=== PATIENT | female | born 1935 | race American Indian/Alaskan Native ===

== ENCOUNTER 2017-01-01 15:08 | Inpatient (IN) | payer MEDICARE, OTHER ==
[2017-01-01] MEDS ORDERED: Dextrose 50% SYRINGE Inj (50 ml) ONE (15:24)
[2017-01-01 15:29] VITALS: BMI 29.2
[2017-01-01 15:59] LABS: BASO # 0.1 K/uL (0.0-0.2); BASO % 0.8 % (0.0-2.0); EOS # 0.1 K/uL (0.0-0.7); LYMPH # 1.2 K/uL (1.0-4.3); LYMPH % 16.5 % (20.0-40.0); MEAN CELL VOLUME 78.2 fL (81.0-99.0); MEAN CORPUSCULAR HGB CONC 30.7 g/dL (33.0-37.0); MEAN PLATELET VOLUME 9.8 fL (7.2-11.7); MONO # 0.6 K/uL (0.0-0.8); MONO % 8.5 % (0.0-10.0); NEUT # 5.2 K/uL (1.8-7.0); NEUT % 73.2 % (50.0-75.0); RBC 4.59 Mil/uL (3.80-5.20); RED CELL DISTRIBUTION WIDTH 18.3 % (11.5-14.5); WHITE BLOOD COUNT 7.1 K/uL (4.8-10.8)
--- NOTE | 2017-01-01 15:59 | CT ---
PROCEDURE: CT HEAD WITHOUT CONTRAST. HISTORY: r/o stroke COMPARISON: None available. TECHNIQUE: Axial computed tomography images were obtained through the head/brain without intravenous contrast. Radiation dose: Total exam DLP = 940.06 mGy-cm. This CT exam was performed using one or more of the following dose reduction techniques: Automated exposure control, adjustment of the mA and/or kV according to patient size, and/or use of iterative reconstruction technique. FINDINGS: HEMORRHAGE: No intracranial hemorrhage. BRAIN: Mild chronic periventricular white matter ischemic changes seen extending peripherally into the deep and subcortical white matter both cerebral hemispheres. In addition, there are a few scattered chronic bilateral basal nuclei lacunar type infarcts. VENTRICLES: No evidence of obstructive hydrocephalus CALVARIUM: No acute calvarial fractures. PARANASAL SINUSES: There are extensive postoperative changes with resection of the middle turbinates as well as the medial lund both maxillary antra and multiple inferior ethmoid septations. Mild to moderate mucosal thickening left maxillary antrum with minor mucosal thickening right maxillary antrum. . Subtotal opacification residual superior ethmoid air cells extending into the frontal sinus. There is also mild mucosal thickening in the left chamber sphenoid sinus with wall thickening of the peripheral lund of the left chamber including the midline intrasphenoid septum MASTOID AIR CELLS: There appears to be some minor mucosal thickening and/or fluid within a few right inferior mastoid air cells. OTHER FINDINGS: None IMPRESSION: No acute intracranial hemorrhage. Mild chronic white matter ischemic changes with a few scattered chronic bilateral basal nuclei lacunar type infarcts. Moderate generalized volume loss. Postoperative changes involving nasal cavity and paranasal sinuses as above. Findings discussed with Dr. Castro at approximately 01/01/2017 at 3:57 p.m. with written down and read back verification.
[2017-01-01 16:04] LABS: PROTHROMBIN TIME 11.5 SECONDS (9.7-12.2)
[2017-01-01 16:06] LABS: ALBUMIN 3.5 g/dL (3.5-5.0)
[2017-01-01 16:09] LABS: ALB/GLOB RATIO 0.6 (1.0-2.1)
[2017-01-01 16:10] LABS: CALCIUM 8.6 mg/dl (8.6-10.4)
--- NOTE | 2017-01-01 16:13 | C.PDOC ---
History Of Present Illness Patient BIB[place] from [place] for evaluation of AMS. As per EMS & [facility] records, patient was c/o abdominal pain in the morning, then noted to have left sided facial droop and LUE weakness at approx 1:45pm. Currently states she "sometimes" has LUE weakness. Accucheck <64 on ED arrival. Time Seen by Provider: 01/01/17 16:00 Chief Complaint (Nursing): Weakness/Neurological Deficit History Per: EMS, Other ([facility] records) History/Exam Limitations: other (AMS) Onset/Duration Of Symptoms: Other (1:45pm) Current Symptoms Are (Timing): Better Past Medical History Reviewed: Historical Data, Nursing Documentation, Vital Signs Vital Signs: Last Vital Signs Temp 97.9 F 01/07/17 15:00 Pulse 72 01/07/17 15:00 Resp 20 01/07/17 15:00 BP 130/74 01/07/17 15:00 Pulse Ox 96 01/07/17 15:00 - Medical History PMH: Dementia, HTN Surgical History: Coronary Stent Family History: States: Other Other Family History: noncontributory - Social History Hx Alcohol Use: No Hx Substance Use: No Review Of Systems Except As Marked, All Systems Reviewed And Found Negative. Constitutional: Negative for: Fever, Chills Cardiovascular: Negative for: Chest Pain, Palpitations Respiratory: Negative for: Cough, Shortness of Breath Gastrointestinal: Negative for: Nausea, Vomiting, Abdominal Pain, Diarrhea Neurological: Positive for: Weakness, Altered Mental Status. Negative for: Headache, Dizziness Physical Exam - Physical Exam Appears: Well, Non-toxic, No Acute Distress Skin: Normal Color, Warm, Dry, No Rash Head: Atraumatic, Normacephalic Eye(s): bilateral: Normal Inspection, PERRL, EOMI Oral Mucosa: Moist Cardiovascular: Rhythm Regular Respiratory: Normal Breath Sounds, No Rales, No Rhonchi, No Wheezing Gastrointestinal/Abdominal: Normal Exam, Bowel Sounds, Soft, No Tenderness Extremity: No Tenderness, Pedal Edema (+1 pitting B/L LEs), No Calf Tenderness Pulses: Left Dorsalis Pedis: Normal, Right Dorsalis Pedis: Normal Neurological/Psych: Other (awake, alert, confused) ED Course And Treatment - Laboratory Results Result Diagrams: 01/01/17 15:52 01/03/17 07:24 ECG: Interpreted By Me, Viewed By Me (Sinus rhythm 89 bpm, normal axis, T wave II, III, aVF, V3-V6, no acute ST changes) ECG Interpretation: Abnormal O2 Sat by Pulse Oximetry: 98 (RA) Pulse Ox Interpretation: Normal - CT Scan/US CT HEAD Other Rad Studies (CT/US): Read By Radiologist, Radiology Report Reviewed CT/US Interpretation: Accession No. : [id number]. Patient Name / ID : LELE DOSS C / [id number]. Exam Date : 01/01/2017 15:33:17 ( Approved ). Study Comment : Sex / Age : F / 81Y. Creator : Jovani Mcrae MD. Dictator : Jovani Mcrae MD. Automotive Metalsmith : Java Designer : Jovani Mcrae MD. Approver2 : Report Date : 01/01/2017 15:58:20. My Comment : . PROCEDURE: CT HEAD WITHOUT CONTRAST. HISTORY: r/o stroke. COMPARISON: None available. TECHNIQUE: Axial computed tomography images were obtained through the head/brain without intravenous contrast. Radiation dose: Total exam DLP = 940.06 mGy-cm. This CT exam was performed using one or more of the following dose reduction techniques: Automated exposure control, adjustment of the mA and/ or kV according to patient size, and/or use of iterative reconstruction technique. FINDINGS: HEMORRHAGE: No intracranial hemorrhage. BRAIN: Mild chronic periventricular white matter ischemic changes seen extending peripherally into the deep and subcortical white matter both cerebral hemispheres. In addition, there are a few scattered chronic bilateral basal nuclei lacunar type infarcts. VENTRICLES: No evidence of obstructive hydrocephalus. CALVARIUM: No acute calvarial fractures. PARANASAL SINUSES: There are extensive postoperative changes with resection of the middle turbinates as well as the medial lund both maxillary antra and multiple inferior ethmoid septations. Mild to moderate mucosal thickening left maxillary antrum with minor mucosal thickening right maxillary antrum. . Subtotal opacification residual superior ethmoid air cells extending into the frontal sinus. There is also mild mucosal thickening in the left chamber sphenoid sinus with wall thickening of the peripheral lund of the left chamber including the midline intrasphenoid septum. MASTOID AIR CELLS: There appears to be some minor mucosal thickening and/or fluid within a few right inferior mastoid air cells. OTHER FINDINGS: None. IMPRESSION: No acute intracranial hemorrhage. Mild chronic white matter ischemic changes with a few scattered chronic bilateral basal nuclei lacunar type infarcts. Moderate generalized volume loss. Postoperative changes involving nasal cavity and paranasal sinuses as above. Findings discussed with Dr. Castro at approximately 2016 at 3:57 p.m. with written down and read back verification. Progress Note: Code stroke called due to stated complaints, however patient without obvious left sided facial droop or LUE weakness on physical exam. PO ASA given after CT head (-) for bleed. Reevaluation Time: 17:00 Reassessment Condition: Improved (Patient resting comfortably, in no pain/ distress. No current facial droop or left sided weakness noted.) - Physician Consult Information Physician Contacted: Ubaldo Cooper Outcome Of Conversation: Discussed patient with Dr. Cooper, agrees with admission for TIA, hypoglycemia. Would like Dr. Manuel for neurology, consult entered. NIHSS Stroke Scale - Date/Time Evaluation Performed Date Performed: 01/01/17 Time Performed: 16:00 When Was NIHSS Performed: Baseline - How Severe is the Stoke Level of Consciousness: 0=Alert LOC to Questions: 0=Both comments correct LOC to commands: 0=Obeys both correctly Best Gaze: 0=Normal Visual: 0=No visual loss Facial: 0=Normal Motor Arm - Left: 0=No drift Motor Arm - Right: 0=No drift Motor Leg - Left: 0=No drift Motor Leg - Right: 0=No drift Limb Ataxia: 0=Absent Sensory: 0=Normal Best Language: 0=No aphasia Dysarthia: 0=Normal articulation Extinction & Inattention (Neglect): 0=Normal, no object Score: 0 Severity Of Stroke: 0= No Stroke rTPA Inclusion/Exclusion - Refusal of Treatment Patient Refused Treatment: No - Inclusion Criteria for Altepase Patient is 18 years or Older: Yes The Clinical Diagnosis of Ischemic Stroke That is Causing a Potentially Disabling Neurological Deficit: No Time of Onset is Well Established to be Less Than 270 Minute Before Treatment Would Begin: Yes Risk/Benefit Discussed With Patient/Family Member Present: No Disposition - Disposition Disposition: HOSPITALIZED Disposition Time: 17:08 Condition: STABLE - Clinical Impression Clinical Impression: Facial droop, Hypoglycemia, Weakness of limb, TIA (transient ischemic attack) Decision To Admit - Pt Status Changed To: Hospital Disposition Of: Inpatient - Admit Certification Admit to Inpatient:: After my assessment, the patient will require hospitalization for at least two midnights. This is because of the severity of symptoms shown, intensity of services needed, and/or the medical risk in this patient being treated as an outpatient. - InPatient: Physician Admission Certification: I certify that this patient requires 2 or more midnights of care for the following reason:: see notes - . Bed Request Type: Telemetry Admitting Physician: Ubaldo Cooper Patient Diagnosis: TIA (transient ischemic attack), Weakness of limb, Facial droop, Hypoglycemia
[2017-01-01] MEDS ORDERED: Dextrose 50% SYRINGE Inj (50 ml) IVP STA (16:17)
[2017-01-01 16:25] LABS: TROPONIN I 0.059 ng/mL (0.00-0.120)
--- NOTE | 2017-01-01 17:01 | RAD ---
HISTORY: CODE STROKE COMPARISON: No prior. FINDINGS: LUNGS: Mild venous congestion. Bilateral hilar prominence. Patchy increased markings at the left lung base. PLEURA: No significant pleural effusion identified, no pneumothorax apparent. CARDIOVASCULAR: Tortuous aorta. OSSEOUS STRUCTURES: No significant abnormalities. VISUALIZED UPPER ABDOMEN: Normal. OTHER FINDINGS: None. IMPRESSION: Mild venous congestion. Bilateral hilar prominence. Patchy increased markings at the left lung base.
--- NOTE | 2017-01-01 19:56 | MRI ---
PROCEDURE: MRI of the brain dated 01/01/2017 HISTORY: FACIAL DROP, LUE WEAKNESS, R/O CVA/TIA COMPARISON: Comparison made with prior CT scan obtained earlier same day TECHNIQUE: Multiplanar, multisequence MR images of the brain were obtained without intravenous contrast enhancement. FINDINGS: HEMORRHAGE: No acute intracranial hemorrhage. No evidence of hemosiderin deposition identified on gradient echo weighted sequence DWI: No evidence of an acute or early subacute infarction seen on diffusion weighted imaging. . BRAIN PARENCHYMA: Seen to better advantage are mild chronic periventricular white matter ischemic changes which extend peripherally into the deep and subcortical white matter both cerebral hemispheres. Multiple more discrete chronic appearing lacunar type infarcts scattered about the deep and subcortical white matter, grant radiata and brainstem. There may also be a few scattered chronic lacunar-type infarcts within both basal nuclei. None of the changes exhibit restricted diffusion. Moderate generalized volume loss. VENTRICLES: No evidence of obstructive hydrocephalus CRANIUM: Unremarkable. ORBITS: Changes of right-sided cataract surgery PARANASAL SINUSES/MASTOIDS: Extensive postoperative changes involving nasal cavity and medial lund both maxillary antra as well as multiple ethmoid septations. . Varying degrees of mild mucosal thickening throughout the paranasal sinuses have been described in further detail prior CT scan of the brain and corresponding report. Please refer that exam for additional details. VASCULAR SYSTEM: The visualized major vascular flow voids at skull base are patent. . OTHER FINDINGS: None. IMPRESSION: No acute intracranial hemorrhage or infarct. Chronic white matter basal nuclei and brainstem ischemic changes. Moderate generalized volume loss.
[2017-01-01] MEDS ORDERED: Magnesium Hydroxide Susp 30 ml UD PO PRN (20:37)
[2017-01-01] MEDS: (Novolog) Insulin Aspart, Recombinant 100 u/ml 10 ml vial SC SCH (21:26)
[2017-01-02 00:21] LABS: FREE T4 1.22 ng/dL (0.78-2.19)
[2017-01-02] MEDS: (Novolog) Insulin Aspart, Recombinant 100 u/ml 10 ml vial SC SCH ×4 (07:50→22:03)
[2017-01-02] MEDS ORDERED: Enoxaparin 40 mg Syringe SC SCH (10:00)
[2017-01-02] MEDS: Metoprolol Succinate 100 mg XL Tab PO SCH (10:54)
[2017-01-02] MEDS: Enoxaparin 30 mg Syringe SC SCH (10:55)
[2017-01-02 17:12] LABS: RAPID PLASMA REAGIN REACTIVE (NONREACTIVE); RPR TITER 1:32 (NONREACTIVE)
--- NOTE | 2017-01-02 18:40 | CP.PCM.CON ---
History of Present Illness - History of Present Illness History of Present Illness: LEFT HAND WEAKNESS FOR 3 MONTHS AND DROPPING OBJECTS DENIES ANY OTHER COMPLAINTS EXCEPT ACHS AND PAIN. Past Patient History - Past Social History Smoking Status: Never Smoked - CARDIAC Hx Hypertension: Yes - NEUROLOGICAL Hx Dementia: Yes - HEENT Hx Cataracts: Yes (right surgery 3yrs ago) - RENAL Hx Chronic Kidney Disease: No - ENDOCRINE/METABOLIC Hx Diabetes Mellitus Type 2: Yes - HEMATOLOGICAL/ONCOLOGICAL Hx Blood Disorders: No - INTEGUMENTARY Hx Dermatological Problems: No - MUSCULOSKELETAL/RHEUMATOLOGICAL Hx Falls: No - GASTROINTESTINAL Hx Gastrointestinal Disorders: No - GENITOURINARY/GYNECOLOGICAL Hx Incontinence: Yes - PSYCHIATRIC Hx Substance Use: No - SURGICAL HISTORY Hx Coronary Stent: Yes (2006) - ANESTHESIA Hx Anesthesia: Yes Hx Anesthesia Reactions: No Hx Malignant Hyperthermia: No Has any member of the family had a problem w/ anesthesia?: No Meds Allergies/Adverse Reactions: Allergies Allergy/AdvReac Type Severity Reaction Status Date / Time shrimp Allergy ITCHING Verified 01/01/17 16:04 - Medications Medications: Current Medications Acetaminophen (Tylenol 325mg Tab) 325 mg PO Q4 PRN PRN Reason: Fever >100.4 F Aspirin (Aspirin Chewable) 81 mg PO DAILY [facility] Last Admin: 01/02/17 10:54 Dose: 81 mg Enalapril Maleate (Vasotec) 10 mg PO DAILY [facility] Last Admin: 01/02/17 10:54 Dose: 10 mg Enoxaparin Sodium (Lovenox) 30 mg SC DAILY [facility] Last Admin: 01/02/17 10:55 Dose: 30 mg Furosemide (Lasix) 40 mg PO DAILY [facility] Last Admin: 01/02/17 10:54 Dose: 40 mg Gabapentin (Neurontin) 300 mg PO DAILY [facility] Last Admin: 01/02/17 10:54 Dose: 300 mg Hydralazine HCl (Apresoline) 25 mg PO Q8 [facility] Last Admin: 01/02/17 13:38 Dose: 25 mg Insulin Aspart (Novolog) 0 unit SC ACHS [facility] PRN Reason: Protocol Last Admin: 01/02/17 16:41 Dose: Not Given Magnesium Hydroxide (Milk Of Magnesia) 30 ml PO HS PRN PRN Reason: Constipation Memantine (Namenda) 5 mg PO BID [facility] Last Admin: 01/02/17 17:04 Dose: 5 mg Metoprolol Succinate (Toprol Xl) 100 mg PO DAILY [facility] Last Admin: 01/02/17 10:54 Dose: 100 mg Pneumococcal Polyvalent Vaccine (Pneumovax 23 Vaccine) 0.5 ml IM .ONCE ONE Stop: 01/03/17 10:01 Rosuvastatin Calcium (Crestor) 10 mg PO [facility] Sitagliptin Phosphate (Januvia) 25 mg PO DAILY [facility] Last Admin: 01/02/17 10:54 Dose: 25 mg Physical Exam - Head Exam Head Exam: NORMAL INSPECTION - Eye Exam Eye Exam: EOMI - Respiratory Exam Respiratory Exam: NORMAL BREATHING PATTERN - Cardiovascular Exam Cardiovascular Exam: REGULAR RHYTHM - Expanded Neurological Exam Expanded Patient oriented to: person, place, time Cranial nerves: EOM's Intact: Normal, Facial Palsey w/Forehead Movement: Abnormal Left, Facial Palsey w/o Forehead Movement: Normal, Facial Sensation: Normal, Gag Reflex: Normal, Nystagmus: Normal, Tongue Deviation: Normal Cerebellar Function: Finger to Nose: Normal Upper motor neuron: Babinski Sign: Abnormal Left Sensory exam: Lower Extremity Pin Prick: Abnormal Left, Abnormal Right ( NEUROPATHY) Neuro motor strength exam: Left Upper Extremity: 4, Right Upper Extremity: 5, Left Lower Extremity: 4, Right Lower Extremity: 5 DTR: Achilles Tendon Left: 0, Achilles Tendon Right: 0, Bicep Left: 2+, Bicep Right: 0, Brachioradialis Left: 2+, Brachioradialis Right: 2+, Patellar Left: 0 , Patellar Right: 0, Tricep Left: 0, Tricep Right: 0 Results - Vital Signs Recent Vital Signs: Last Vital Signs Temp 98.5 F 01/02/17 08:39 Pulse 103 H 01/02/17 08:39 Resp 20 01/02/17 08:39 BP 138/81 01/02/17 10:54 Pulse Ox 96 01/02/17 08:39 - Labs Result Diagrams: 01/01/17 15:52 01/01/17 15:52 Labs: Laboratory Results - last 24 hr 01/01/17 01/01/17 01/01/17 21:22 23:03 23:03 POC Glucose (mg/dL) 124 H Vitamin B12 571 Folate 7.0 Free T4 1.22 TSH 3rd Generation 0.92 Prolactin 14.0 RPR Titer RPR 01/01/17 01/02/17 01/02/17 23:03 11:32 16:08 POC Glucose (mg/dL) 168 H 146 H Vitamin B12 Folate Free T4 TSH 3rd Generation Prolactin RPR Titer 1:32 H RPR Reactive H Assessment & Plan (1) Brain stem stroke syndrome Assessment and Plan: MRI SHOWED SMALL VESSEL DISEASE CAROTID NO SIG STENOSIS CONTINUE THE PRESENT MANAGEMENT PT / OOB DVT PROPHYLAXIS Status: Acute Priority: Medium - Date & Time Date: 01/02/17 Time: 06:45
--- NOTE | 2017-01-02 22:47 | CP.PCM.HP ---
History of Present Illness - History of Present Illness History of Present Illness: CC: LEFT HAND WEAKNESS & NUMBNESS FOR 3 MONTHS AND DROPPING OBJECTS DENIES ANY OTHER COMPLAINTS EXCEPT ACHS AND PAIN HPI: ELDERLY AA FEMALE WITH H/O TYPE 2 DM, HTN, HYPERLIPIDEMIA, ALZEHMEIRS WHO LIVES IN A [facility], HAD ACUTE ONSET OF LEFT SIDED UE AND FACIAL NUMBNESS AND WEAKNESS THAT LASTED FOR FEW MINUTES BY THE TIME PT REACHED ER IT RESOLVED . Present on Admission - Present on Admission Any Indicators Present on Admission: Yes Past Patient History - Past Social History Smoking Status: Never Smoked - CARDIAC Hx Hypertension: Yes - NEUROLOGICAL Hx Dementia: Yes - HEENT Hx Cataracts: Yes (right surgery 3yrs ago) - RENAL Hx Chronic Kidney Disease: No - ENDOCRINE/METABOLIC Hx Diabetes Mellitus Type 2: Yes - HEMATOLOGICAL/ONCOLOGICAL Hx Blood Disorders: No - INTEGUMENTARY Hx Dermatological Problems: No - MUSCULOSKELETAL/RHEUMATOLOGICAL Hx Falls: No - GASTROINTESTINAL Hx Gastrointestinal Disorders: No - GENITOURINARY/GYNECOLOGICAL Hx Incontinence: Yes - PSYCHIATRIC Hx Substance Use: No - SURGICAL HISTORY Hx Coronary Stent: Yes (2006) - ANESTHESIA Hx Anesthesia: Yes Hx Anesthesia Reactions: No Hx Malignant Hyperthermia: No Has any member of the family had a problem w/ anesthesia?: No Meds Allergies/Adverse Reactions: Allergies Allergy/AdvReac Type Severity Reaction Status Date / Time shrimp Allergy ITCHING Verified 01/01/17 16:04 Physical Exam - Constitutional Appears: No Acute Distress, Confused, Chronically Ill - Eye Exam Eye Exam: EOMI, Normal appearance, PERRL Pupil Exam: NORMAL ACCOMODATION, PERRL - Respiratory Exam Respiratory Exam: Clear to Auscultation Bilateral, NORMAL BREATHING PATTERN - Cardiovascular Exam Cardiovascular Exam: REGULAR RHYTHM Additional comments: 3/6 [facility] - Extremities Exam Extremities exam: Positive for: normal inspection Additional comments: DTRS ABSENT IN BOTH ANKLES ALL OTHER REFLEXES NORMAL - Back Exam Back exam: NORMAL INSPECTION - Neurological Exam Additional comments: AAOX2 - Psychiatric Exam Psychiatric exam: Normal Affect, Normal Mood Results - Vital Signs Recent Vital Signs: Last Vital Signs Temp 98.4 F 01/02/17 16:00 Pulse 95 H 01/02/17 18:44 Resp 22 01/02/17 16:00 BP 166/96 H 01/02/17 16:00 Pulse Ox 98 01/02/17 16:00 - Labs Result Diagrams: 01/01/17 15:52 01/03/17 07:24 Labs: Laboratory Results - last 24 hr 01/01/17 01/01/17 01/01/17 23:03 23:03 23:03 POC Glucose (mg/dL) Vitamin B12 571 Folate 7.0 Free T4 1.22 TSH 3rd Generation 0.92 Prolactin 14.0 RPR Titer 1:32 H RPR Reactive H 01/02/17 01/02/17 01/02/17 11:32 16:08 21:30 POC Glucose (mg/dL) 168 H 146 H 184 H Vitamin B12 Folate Free T4 TSH 3rd Generation Prolactin RPR Titer RPR Assessment & Plan (1) TIA (transient ischemic attack) Status: Acute (2) LUE numbness Status: Acute (3) HTN (hypertension) Status: Acute (4) AD (Alzheimer's disease) Status: Acute
[2017-01-03] MEDS: (Novolog) Insulin Aspart, Recombinant 100 u/ml 10 ml vial SC SCH ×4 (07:52→20:59)
[2017-01-03 08:06] LABS: CALCIUM 8.9 mg/dl (8.6-10.4)
[2017-01-03] MEDS ORDERED: Pneumococcal 23-Valent Vaccine IM ONE (10:00)
[2017-01-03] MEDS: Enoxaparin 30 mg Syringe SC SCH (10:26)
[2017-01-03] MEDS: Metoprolol Succinate 100 mg XL Tab PO SCH (10:27)
--- NOTE | 2017-01-03 10:27 | VASCLAB ---
PROCEDURE: HISTORY: Cerebrovascular accident COMPARISON: None available. TECHNIQUE: Grayscale and duplex Doppler evaluation of the cervical carotid and vertebral arteries were performed. The common carotid, carotid bifurcations and cervical Internal Carotid Artery (ICA) and proximal External Carotid Artery (ECA) were evaluated. The vertebral arteries were evaluated for gross patency and flow direction. Report prepared by THOMAS Syed FINDINGS: RIGHT CAROTID ARTERIES: 1. Common Carotid Artery: No significant focal plaque formation of the right common carotid artery. Maximum Peak Systolic velocity: 70 cm/sec: End-diastolic velocity 10 cm/sec. 2. Carotid Bifurcation: Minimal calcifiic plaque formation. Maximum Peak Systolic velocity: 51 cm/sec: End-diastolic velocity 8 cm/sec. 3. Internal Carotid Artery: Plaque description: 3.1. Proximal Segment: Peak systolic velocity 74 cm/sec: End-diastolic velocity 20 cm/sec - % stenosis 0-15% 3.2. Middle Segment: Peak systolic velocity 85 cm/sec: End-diastolic velocity 18 cm/sec - % stenosis 0-15% 3.3. Distal Segment: Peak systolic velocity 89 cm/sec: End-diastolic velocity 34 cm/sec - % stenosis 0-15% 4. External Carotid Artery: No significant focal plaque formation. Peak systolic velocity 64 cm/sec 5. ICA/CCA Ratio: 1.6 LEFT CAROTID ARTERIES: 1. Common Carotid Artery: No significant focal plaque formation of the left common carotid artery. Maximum Peak Systolic velocity: 81 cm/sec: End-diastolic velocity 12 cm/sec. 2. Carotid Bifurcation: Minimal calcific plaque formation. Maximum Peak Systolic velocity: 39 cm/sec: End-diastolic velocity 0 cm/sec. 3. Internal Carotid Artery: Plaque description: 3.1. Proximal Segment: Peak systolic velocity 40 cm/sec: End-diastolic velocity 11 cm/sec - % stenosis 0-15% 3.2. Middle Segment: Peak systolic velocity 78 cm/sec: End-diastolic velocity 26 cm/sec - % stenosis 0-15% 3.3. Distal Segment: Peak systolic velocity 59 cm/sec: End-diastolic velocity 15 cm/sec - % stenosis 0-15% 4. External Carotid Artery: No significant focal plaque formation. Peak systolic velocity 72 cm/sec 5. ICA/CCA Ratio: 1.6 VERTEBRAL ARTERIES: 1. Right Vertebral Artery: The right vertebral artery flow direction is antegrade. 2. Left Vertebral Artery: The left vertebral artery flow direction is antegrade. OTHER FINDINGS: 1. Right Brachial Blood pressure: 160 mmHg. 2. Left Brachial Blood pressure: 150 mmHg. IMPRESSION: RIGHT: Duplex scan does not suggest hemodynamically significant stenosis of the right extracranial carotid arteries. LEFT: Duplex scan does not suggest hemodynamically significant stenosis of the left extracranial carotid arteries. Technically difficult scanning, due to patient breathing movement and short neck area.
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
--- NOTE | 2017-01-03 16:18 | CARD ---
APPROVED REPORT EKG Measurement Heart [id number] <Conclusion> Sinus rhythm with marked sinus arrhythmia Nonspecific ST/T abnormality Abnormal ECG
--- NOTE | 2017-01-03 16:54 | CP.PCM.PN ---
Subjective - Date & Time of Evaluation Date of Evaluation: 01/02/17 Time of Evaluation: 21:00 - Subjective Subjective: Pt seen & examined, she has elevated BUN?creat that is chronic, stroke is ruled out, could be TIA or vasovagal syncope Objective - Vital Signs/Intake and Output Vital Signs (last 24 hours): Temp Pulse Resp BP Pulse Ox 97.8 F 99 H 20 157/84 H 99 01/03/17 08:37 01/03/17 16:12 01/03/17 08:37 01/03/17 10:25 01/03/17 08:37 - Medications Medications: Current Medications Acetaminophen (Tylenol 325mg Tab) 325 mg PO Q4 PRN PRN Reason: Fever >100.4 F Last Admin: 01/03/17 05:46 Dose: 325 mg Aspirin (Aspirin Chewable) 81 mg PO DAILY [facility] Last Admin: 01/03/17 10:27 Dose: 81 mg Enalapril Maleate (Vasotec) 10 mg PO DAILY [facility] Last Admin: 01/03/17 10:25 Dose: 10 mg Enoxaparin Sodium (Lovenox) 30 mg SC DAILY [facility] Last Admin: 01/03/17 10:26 Dose: 30 mg Furosemide (Lasix) 40 mg PO DAILY [facility] Last Admin: 01/03/17 10:25 Dose: 40 mg Gabapentin (Neurontin) 300 mg PO DAILY [facility] Last Admin: 01/03/17 10:25 Dose: 300 mg Hydralazine HCl (Apresoline) 25 mg PO Q8 [facility] Last Admin: 01/03/17 13:22 Dose: 25 mg Insulin Aspart (Novolog) 0 unit SC ACHS [facility] 234 [facility] PRN Reason: Protocol Last Admin: 01/03/17 12:17 Dose: 4 unit Magnesium Hydroxide (Milk Of Magnesia) 30 ml PO HS PRN PRN Reason: Constipation Memantine (Namenda) 5 mg PO BID [facility] Last Admin: 01/03/17 10:25 Dose: 5 mg Metoprolol Succinate (Toprol Xl) 100 mg PO DAILY [facility] Last Admin: 01/03/17 10:27 Dose: 100 mg Rosuvastatin Calcium (Crestor) 10 mg PO HS [facility] 234 [facility] Last Admin: 01/02/17 21:13 Dose: 10 mg Sitagliptin Phosphate (Januvia) 25 mg PO DAILY [facility] 234 [facility] Last Admin: 07/13/17 10:25 Dose: 25 mg - Labs Labs: 01/03/17 07:24 PT 11.5 SECONDS (9.7-12.2) 01/01/17 15:52 INR 1.0 01/01/17 15:52 APTT 41 SECONDS (21-34) H 01/01/17 15:52
[2017-01-03] MEDS: cefTRIAXone 2 GM IN NS 2 GM/100 ML BAG IVPB SCH (19:10)
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
[2017-01-04] MEDS: (Novolog) Insulin Aspart, Recombinant 100 u/ml 10 ml vial SC SCH ×4 (08:53→21:05)
[2017-01-04] MEDS: Enoxaparin 30 mg Syringe SC SCH (10:50)
[2017-01-04] MEDS: Metoprolol Succinate 100 mg XL Tab PO SCH (10:51)
--- NOTE | 2017-01-04 14:03 | CARD ---
APPROVED REPORT EXAM: Two-dimensional and M-mode echocardiogram with Doppler and color Doppler. Other Information Quality : GoodRhythm : NSR INDICATION CVA/TIA Murmur RISK FACTORS Hypertension 2D DIMENSIONS LVOT Diameter1.9 (1.8-2.4cm) M-Mode DIMENSIONS RVDd1.43 (2.1-3.2cm)Left Atrium (MM)4.52 (2.5-4.0cm) IVSd1.43 (0.7-1.1cm)Aortic Root2.47 (2.2-3.7cm) LVDd3.94 (4.0-5.6cm)Aortic Cusp Exc.0.91 (1.5-2.0cm) PWd1.46 (0.7-1.1cm)FS (%) 36 % LVDs2.51 (2.0-3.8cm)LVEF (%)67 (>50%) Aortic Valve AoV Peak Lgodeyaz630.4cm/sAoV VTI81.8cmAO Peak GR.60mmHg LVOT Peak Rfsrbkhc63.6cm/sLVOT VTI22.95cmAO Mean GR.39mmHg RUPESH (VMAX)0.58tm5SYV (VTI)0.76cm2 Mitral Valve MV E Nkjxaywi850.1cm/sMV E Peak Gr.25mmHgMV E Mean Gr.11mmHg E/A ratio0.0 TDI E/Lateral E'0.0E/Medial E'0.0 LEFT VENTRICLE The left ventricle is normal size. There is moderate concentric left ventricular hypertrophy. The left ventricular function is normal. The left ventricular ejection fraction is within the normal range. No regional wall motion abnormalities noted. No left ventricle thrombus noted on this study. There is no ventricular septal defect visualized. There is no left ventricular aneurysm. There is no mass noted in the left ventricle. RIGHT VENTRICLE The right ventricle is normal size. There is normal right ventricular wall thickness. The right ventricular systolic function is normal. ATRIA The left atrium is mildly dilated. The right atrium size is normal. The interatrial septum is intact with no evidence for an atrial septal defect. AORTIC VALVE The aortic valve is moderately thickened. No aortic regurgitation is present. There is moderate to severe valvular aortic stenosis. Calculated aortic valve area is 0.76 cm2 with maximum pressure gradient of 69 mmHg and mean pressure gradient of 39 mmHg. There is no aortic valvular vegetation. MITRAL VALVE The mitral valve is normal in structure and function. Mitral annular calcification is moderate. There is no evidence of mitral valve prolapse. There is no mitral valve stenosis. There is no mitral valve regurgitation noted. TRICUSPID VALVE The tricuspid valve is normal in structure and function. There is no tricuspid valve regurgitation noted. There is no tricuspid valve prolapse or vegetation. There is no tricuspid valve stenosis. PULMONIC VALVE The pulmonary valve is normal in structure and function. There is no pulmonic valvular regurgitation. There is no pulmonic valvular stenosis. GREAT VESSELS The aortic root is normal in size. The ascending aorta is normal in size. The pulmonary artery is normal. The IVC is normal in size and collapses >50% with inspiration. PERICARDIAL EFFUSION The pericardium appears normal. There is no pleural effusion. <Conclusion> There is moderate concentric left ventricular hypertrophy. The left ventricular function is normal. The left ventricular ejection fraction is within the normal range. The left atrium is mildly dilated. There is moderate to severe valvular aortic stenosis. Calculated aortic valve area is 0.76 cm2 with maximum pressure gradient of 69 mmHg and mean pressure gradient of 39 mmHg.
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
[2017-01-04] MEDS: cefTRIAXone 2 GM IN NS 2 GM/100 ML BAG IVPB SCH (19:01)
--- NOTE | 2017-01-04 23:08 | CP.PCM.PN ---
Subjective - Date & Time of Evaluation Date of Evaluation: 01/04/17 Time of Evaluation: 20:20 - Subjective Subjective: Pt seen and examined, RPR positive so pt is also seen by neurology to rule out neurosyphillis, clinincally remians unchanged Objective - Vital Signs/Intake and Output Vital Signs (last 24 hours): Temp Pulse Resp BP Pulse Ox 98.3 F 99 H 20 133/72 95 01/04/17 15:11 01/04/17 15:15 01/04/17 15:11 01/04/17 15:11 01/04/17 15:11 - Medications Medications: Current Medications Acetaminophen (Tylenol 325mg Tab) 325 mg PO Q4 PRN PRN Reason: Fever >100.4 F Last Admin: 01/03/17 05:46 Dose: 325 mg Aspirin (Aspirin Chewable) 81 mg PO DAILY [facility] Last Admin: 01/04/17 10:50 Dose: 81 mg Enalapril Maleate (Vasotec) 20 mg PO DAILY [facility] Enoxaparin Sodium (Lovenox) 30 mg SC DAILY [facility] Last Admin: 01/04/17 10:50 Dose: 30 mg Furosemide (Lasix) 40 mg PO DAILY [facility] Last Admin: 01/04/17 10:52 Dose: 40 mg Gabapentin (Neurontin) 300 mg PO DAILY [facility] Last Admin: 01/04/17 10:52 Dose: 300 mg Hydralazine HCl (Apresoline) 25 mg PO Q8 [facility] Last Admin: 01/04/17 21:22 Dose: 25 mg Ceftriaxone Sodium (Rocephin 2 Gm Ivpb) 2 gm in 100 mls @ 100 mls/hr IVPB Q24H [facility] Last Admin: 01/04/17 19:01 Dose: 100 mls/hr Insulin Aspart (Novolog) 0 unit SC ACHS [facility] PRN Reason: Protocol Last Admin: 01/04/17 21:05 Dose: Not Given Magnesium Hydroxide (Milk Of Magnesia) 30 ml PO HS PRN PRN Reason: Constipation Memantine (Namenda) 5 mg PO BID [facility] Last Admin: 01/04/17 17:38 Dose: 5 mg Metoprolol Succinate (Toprol Xl) 100 mg PO DAILY [facility] Last Admin: 01/04/17 10:51 Dose: 100 mg Rosuvastatin Calcium (Crestor) 10 mg PO HS [facility] Last Admin: 01/04/17 21:22 Dose: 10 mg Sitagliptin Phosphate (Januvia) 25 mg PO DAILY [facility] Last Admin: 01/04/17 10:52 Dose: 25 mg - Labs Labs: 01/03/17 07:24 PT 11.5 SECONDS (9.7-12.2) 01/01/17 15:52 INR 1.0 01/01/17 15:52 APTT 41 SECONDS (21-34) H 01/01/17 15:52 - Constitutional Appears: Well - Head Exam Head Exam: ATRAUMATIC, NORMAL INSPECTION, NORMOCEPHALIC - Eye Exam Eye Exam: EOMI, Normal appearance, PERRL Pupil Exam: NORMAL ACCOMODATION, PERRL - Respiratory Exam Respiratory Exam: Clear to Ausculation Bilateral, NORMAL BREATHING PATTERN - Cardiovascular Exam Cardiovascular Exam: REGULAR RHYTHM, +S1, +S2. absent: Murmur - GI/Abdominal Exam GI & Abdominal Exam: Soft, Normal Bowel Sounds. absent: Tenderness Assessment and Plan (1) TIA (transient ischemic attack) Status: Acute (2) LUE numbness Status: Acute (3) HTN (hypertension) Status: Acute (4) AD (Alzheimer's disease) Status: Acute
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
[2017-01-05] MEDS: (Novolog) Insulin Aspart, Recombinant 100 u/ml 10 ml vial SC SCH ×4 (08:23→21:52)
[2017-01-05] MEDS: Enoxaparin 30 mg Syringe SC SCH (10:35)
[2017-01-05] MEDS: Metoprolol Succinate 100 mg XL Tab PO SCH (10:37)
[2017-01-05] MEDS: cefTRIAXone 2 GM IN NS 2 GM/100 ML BAG IVPB SCH (18:20)
[2017-01-05 19:02] VITALS: RESP 20
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
--- NOTE | 2017-01-06 01:30 | CP.PCM.PN ---
Subjective - Date & Time of Evaluation Date of Evaluation: 01/05/17 Time of Evaluation: 18:00 - Subjective Subjective: Pt seen and examined, RPR positive so pt is also seen by neurology to rule out neurosyphillis, clinincally remians unchanged Objective - Vital Signs/Intake and Output Vital Signs (last 24 hours): Temp Pulse Resp BP Pulse Ox 98.0 F 66 20 144/83 97 01/06/17 00:00 01/06/17 00:00 01/06/17 00:00 01/06/17 00:00 01/06/17 00:00 Intake and Output: 01/05/17 01/06/17 18:59 06:59 Intake Total 600 Balance 600 - Medications Medications: Current Medications Acetaminophen (Tylenol 325mg Tab) 325 mg PO Q4 PRN PRN Reason: Fever >100.4 F Last Admin: 01/03/17 05:46 Dose: 325 mg Aspirin (Aspirin Chewable) 81 mg PO DAILY [facility] Last Admin: 01/05/17 10:37 Dose: 81 mg Enalapril Maleate (Vasotec) 20 mg PO DAILY [facility] Last Admin: 01/05/17 10:37 Dose: 20 mg Enoxaparin Sodium (Lovenox) 30 mg SC DAILY [facility] Last Admin: 01/05/17 10:35 Dose: 30 mg Furosemide (Lasix) 40 mg PO DAILY [facility] Last Admin: 01/05/17 10:37 Dose: 40 mg Gabapentin (Neurontin) 300 mg PO DAILY [facility] Last Admin: 01/05/17 10:37 Dose: 300 mg Hydralazine HCl (Apresoline) 25 mg PO Q8 [facility] Last Admin: 01/05/17 21:54 Dose: 25 mg Ceftriaxone Sodium (Rocephin 2 Gm Ivpb) 2 gm in 100 mls @ 100 mls/hr IVPB Q24H [facility] Last Admin: 01/05/17 18:20 Dose: 100 mls/hr Insulin Aspart (Novolog) 0 unit SC ACHS [facility] PRN Reason: Protocol Last Admin: 01/05/17 21:52 Dose: Not Given Magnesium Hydroxide (Milk Of Magnesia) 30 ml PO HS PRN PRN Reason: Constipation Memantine (Namenda) 5 mg PO BID [facility] Last Admin: 01/05/17 17:17 Dose: 5 mg Metoprolol Succinate (Toprol Xl) 100 mg PO DAILY [facility] Last Admin: 01/05/17 10:37 Dose: 100 mg Rosuvastatin Calcium (Crestor) 10 mg PO HS [facility] Last Admin: 01/05/17 21:54 Dose: 10 mg Sitagliptin Phosphate (Januvia) 25 mg PO DAILY [facility] Last Admin: 01/05/17 10:37 Dose: 25 mg - Labs Labs: 01/03/17 07:24 PT 11.5 SECONDS (9.7-12.2) 01/01/17 15:52 INR 1.0 01/01/17 15:52 APTT 41 SECONDS (21-34) H 01/01/17 15:52 - Constitutional Appears: No Acute Distress - Head Exam Head Exam: ATRAUMATIC, NORMAL INSPECTION, NORMOCEPHALIC - Eye Exam Eye Exam: EOMI, Normal appearance, PERRL Pupil Exam: NORMAL ACCOMODATION, PERRL - Respiratory Exam Respiratory Exam: Clear to Ausculation Bilateral, NORMAL BREATHING PATTERN - Cardiovascular Exam Cardiovascular Exam: REGULAR RHYTHM, +S1, +S2. absent: Murmur - GI/Abdominal Exam GI & Abdominal Exam: Soft, Normal Bowel Sounds. absent: Tenderness Assessment and Plan (1) TIA (transient ischemic attack) Status: Acute (2) LUE numbness Status: Acute (3) HTN (hypertension) Status: Acute (4) AD (Alzheimer's disease) Status: Acute
[2017-01-06] MEDS: (Novolog) Insulin Aspart, Recombinant 100 u/ml 10 ml vial SC SCH ×3 (08:46→17:36)
[2017-01-06] MEDS: Metoprolol Succinate 100 mg XL Tab PO SCH (09:07)
[2017-01-06] MEDS: Enoxaparin 30 mg Syringe SC SCH (09:07)
[2017-01-06] MEDS: cefTRIAXone 2 GM IN NS 2 GM/100 ML BAG IVPB SCH (19:42)
--- NOTE | 2017-01-06 21:37 | CP.PCM.PN ---
Subjective - Date & Time of Evaluation Date of Evaluation: 01/06/17 Time of Evaluation: 19:00 - Subjective Subjective: Pt seen and examined, waiting for FTABs Objective - Vital Signs/Intake and Output Vital Signs (last 24 hours): Temp Pulse Resp BP Pulse Ox 98.2 F 69 20 131/74 97 01/06/17 15:16 01/06/17 15:16 01/06/17 15:16 01/06/17 15:16 01/06/17 15:16 Intake and Output: 01/06/17 01/07/17 18:59 06:59 Intake Total 380 Balance 380 - Medications Medications: Current Medications Acetaminophen (Tylenol 325mg Tab) 325 mg PO Q4 PRN PRN Reason: Fever >100.4 F Last Admin: 01/03/17 05:46 Dose: 325 mg Aspirin (Aspirin Chewable) 81 mg PO DAILY [facility] Last Admin: 01/06/17 09:07 Dose: 81 mg Enalapril Maleate (Vasotec) 20 mg PO DAILY [facility] Last Admin: 01/06/17 09:08 Dose: 20 mg Enoxaparin Sodium (Lovenox) 30 mg SC DAILY [facility] Last Admin: 01/06/17 09:07 Dose: 30 mg Furosemide (Lasix) 40 mg PO DAILY [facility] Last Admin: 01/06/17 09:08 Dose: 40 mg Gabapentin (Neurontin) 300 mg PO DAILY [facility] Last Admin: 01/06/17 09:08 Dose: 300 mg Hydralazine HCl (Apresoline) 25 mg PO Q8 [facility] Last Admin: 01/06/17 13:34 Dose: 25 mg Ceftriaxone Sodium (Rocephin 2 Gm Ivpb) 2 gm in 100 mls @ 100 mls/hr IVPB Q24H [facility] Last Admin: 01/06/17 19:42 Dose: 100 mls/hr Insulin Aspart (Novolog) 0 unit SC ACHS [facility] PRN Reason: Protocol Last Admin: 01/06/17 17:36 Dose: 2 unit Magnesium Hydroxide (Milk Of Magnesia) 30 ml PO HS PRN PRN Reason: Constipation Memantine (Namenda) 5 mg PO BID [facility] Last Admin: 01/06/17 17:36 Dose: 5 mg Metoprolol Succinate (Toprol Xl) 100 mg PO DAILY [facility] Last Admin: 01/06/17 09:07 Dose: 100 mg Rosuvastatin Calcium (Crestor) 10 mg PO HS [facility] Last Admin: 01/05/17 21:54 Dose: 10 mg Sitagliptin Phosphate (Januvia) 25 mg PO DAILY [facility] Last Admin: 01/06/17 09:09 Dose: 25 mg - Labs Labs: 01/03/17 07:24 PT 11.5 SECONDS (9.7-12.2) 01/01/17 15:52 INR 1.0 01/01/17 15:52 APTT 41 SECONDS (21-34) H 01/01/17 15:52 - Constitutional Appears: No Acute Distress - Head Exam Head Exam: ATRAUMATIC, NORMAL INSPECTION, NORMOCEPHALIC - Eye Exam Eye Exam: EOMI, Normal appearance, PERRL Pupil Exam: NORMAL ACCOMODATION, PERRL - Respiratory Exam Respiratory Exam: Clear to Ausculation Bilateral, NORMAL BREATHING PATTERN - Cardiovascular Exam Cardiovascular Exam: REGULAR RHYTHM, +S1, +S2. absent: Murmur - GI/Abdominal Exam GI & Abdominal Exam: Soft, Normal Bowel Sounds. absent: Tenderness - Neurological Exam Additional comments: demented Assessment and Plan (1) TIA (transient ischemic attack) Status: Acute (2) LUE numbness Status: Acute (3) HTN (hypertension) Status: Acute (4) AD (Alzheimer's disease) Status: Acute
[2017-01-07] MEDS: (Novolog) Insulin Aspart, Recombinant 100 u/ml 10 ml vial SC SCH ×3 (08:31→12:35)
[2017-01-07] MEDS: Enoxaparin 30 mg Syringe SC SCH (10:09)
[2017-01-07] MEDS: Metoprolol Succinate 100 mg XL Tab PO SCH (10:10)
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
--- NOTE | 2017-01-07 13:29 | CP.PCM.PN ---
Subjective - Date & Time of Evaluation Date of Evaluation: 01/07/17 Objective - Vital Signs/Intake and Output Vital Signs (last 24 hours): Temp Pulse Resp BP Pulse Ox 97.2 F L 92 H 20 177/92 H 98 01/07/17 09:14 01/07/17 09:14 01/07/17 09:14 01/07/17 10:10 01/07/17 09:14 Intake and Output: 01/07/17 01/07/17 06:59 18:59 Intake Total 340 Balance 340 - Medications Medications: Current Medications Acetaminophen (Tylenol 325mg Tab) 325 mg PO Q4 PRN PRN Reason: Fever >100.4 F Last Admin: 01/03/17 05:46 Dose: 325 mg Aspirin (Aspirin Chewable) 81 mg PO DAILY [facility] Last Admin: 01/07/17 10:10 Dose: 81 mg Enalapril Maleate (Vasotec) 20 mg PO DAILY [facility] Last Admin: 01/07/17 10:10 Dose: 20 mg Enoxaparin Sodium (Lovenox) 30 mg SC DAILY [facility] Last Admin: 01/07/17 10:09 Dose: 30 mg Furosemide (Lasix) 40 mg PO DAILY [facility] Last Admin: 01/07/17 10:10 Dose: 40 mg Gabapentin (Neurontin) 300 mg PO DAILY [facility] Last Admin: 01/07/17 10:09 Dose: 300 mg Hydralazine HCl (Apresoline) 25 mg PO Q8 [facility] Last Admin: 01/07/17 05:31 Dose: 25 mg Ceftriaxone Sodium (Rocephin 2 Gm Ivpb) 2 gm in 100 mls @ 100 mls/hr IVPB Q24H [facility] Last Admin: 01/06/17 19:42 Dose: 100 mls/hr Insulin Aspart (Novolog) 0 unit SC ACHS [facility] PRN Reason: Protocol Last Admin: 01/07/17 12:35 Dose: 2 unit Magnesium Hydroxide (Milk Of Magnesia) 30 ml PO HS PRN PRN Reason: Constipation Memantine (Namenda) 5 mg PO BID [facility] Last Admin: 01/07/17 10:10 Dose: 5 mg Metoprolol Succinate (Toprol Xl) 100 mg PO DAILY [facility] Last Admin: 01/07/17 10:10 Dose: 100 mg Penicillin G Benzathine (Bicillin L-A Inj) 2,400,000 units IM ONCE ONE Stop: 01/07/17 14:01 Rosuvastatin Calcium (Crestor) 10 mg PO HS [facility] Last Admin: 01/06/17 22:11 Dose: 10 mg Sitagliptin Phosphate (Januvia) 25 mg PO DAILY [facility] Last Admin: 01/07/17 10:09 Dose: 25 mg - Labs Labs: 01/03/17 07:24 PT 11.5 SECONDS (9.7-12.2) 01/01/17 15:52 INR 1.0 01/01/17 15:52 APTT 41 SECONDS (21-34) H 01/01/17 15:52 Assessment and Plan (1) TIA (transient ischemic attack) Status: Acute (2) LUE numbness Status: Acute (3) HTN (hypertension) Status: Acute (4) AD (Alzheimer's disease) Status: Acute
[2017-01-07] MEDS ORDERED: Penicillin G Benzathine 2.4 Mill Unit/4 ml Syr IM ONE (14:00)
--- NOTE | 2017-01-07 14:40 | CP.PCM.PN ---
Subjective - Date & Time of Evaluation Date of Evaluation: 01/07/17 Time of Evaluation: 11:50 - Subjective Subjective: Pt seen and examined today, denies any chest pain, sob, headache , numbness or weakness RPR- + ve FTA - result pending No overnight event recorded by RN Objective - Vital Signs/Intake and Output Vital Signs (last 24 hours): Temp Pulse Resp BP Pulse Ox 97.2 F L 92 H 20 177/92 H 98 01/07/17 09:14 01/07/17 09:14 01/07/17 09:14 01/07/17 10:10 01/07/17 09:14 Intake and Output: 01/07/17 01/07/17 06:59 18:59 Intake Total 340 Balance 340 - Medications Medications: Current Medications Acetaminophen (Tylenol 325mg Tab) 325 mg PO Q4 PRN PRN Reason: Fever >100.4 F Last Admin: 01/03/17 05:46 Dose: 325 mg Aspirin (Aspirin Chewable) 81 mg PO DAILY [facility] Last Admin: 01/07/17 10:10 Dose: 81 mg Enalapril Maleate (Vasotec) 20 mg PO DAILY [facility] Last Admin: 01/07/17 10:10 Dose: 20 mg Enoxaparin Sodium (Lovenox) 30 mg SC DAILY [facility] Last Admin: 01/07/17 10:09 Dose: 30 mg Furosemide (Lasix) 40 mg PO DAILY [facility] Last Admin: 01/07/17 10:10 Dose: 40 mg Gabapentin (Neurontin) 300 mg PO DAILY [facility] Last Admin: 01/07/17 10:09 Dose: 300 mg Hydralazine HCl (Apresoline) 25 mg PO Q8 [facility] Last Admin: 01/07/17 05:31 Dose: 25 mg Ceftriaxone Sodium (Rocephin 2 Gm Ivpb) 2 gm in 100 mls @ 100 mls/hr IVPB Q24H [facility] Last Admin: 01/06/17 19:42 Dose: 100 mls/hr Insulin Aspart (Novolog) 0 unit SC ACHS [facility] PRN Reason: Protocol Last Admin: 01/07/17 12:35 Dose: 2 unit Magnesium Hydroxide (Milk Of Magnesia) 30 ml PO HS PRN PRN Reason: Constipation Memantine (Namenda) 5 mg PO BID [facility] Last Admin: 01/07/17 10:10 Dose: 5 mg Metoprolol Succinate (Toprol Xl) 100 mg PO DAILY [facility] Last Admin: 01/07/17 10:10 Dose: 100 mg Rosuvastatin Calcium (Crestor) 10 mg PO HS [facility] Last Admin: 01/06/17 22:11 Dose: 10 mg Sitagliptin Phosphate (Januvia) 25 mg PO DAILY [facility] Last Admin: 01/07/17 10:09 Dose: 25 mg - Labs Labs: 01/03/17 07:24 PT 11.5 SECONDS (9.7-12.2) 01/01/17 15:52 INR 1.0 01/01/17 15:52 APTT 41 SECONDS (21-34) H 01/01/17 15:52 - Constitutional Appears: Well, No Acute Distress - Respiratory Exam Respiratory Exam: Clear to Ausculation Bilateral, NORMAL BREATHING PATTERN - Cardiovascular Exam Cardiovascular Exam: +S1, +S2, Murmur - Neurological Exam Neurological Exam: Alert, Awake, Oriented x3 Assessment and Plan - Assessment and Plan (Free Text) Assessment: 81 yr old female yr old female admitted from [place] for AMS and left facial droop an dLE weakness MRI - No acute intracranial hemorrhage or infarct. Chronic white matter basal nuclei and brainstem ischemic changes. RPR- + ve awaiting- FTA result D/W Dr. Sanchez cleared to discharge to [facility] from ID standpoint and continue rocephiln x 5 days until FTA result is back D/W With Dr. hart, cleared for discharge to [facility] today and Dr. hart will follow the patient at [facility]
[2017-01-07 15:52] VITALS: BP 130/74; PULSE 72; TEMP 97.9
--- NOTE | 2017-01-07 23:57 | CP.PCM.DIS ---
Provider - Provider Date of Admission: 01/01/17 17:08 Attending physician: Ubaldo Cooper MD Time Spent in preparation of Discharge (in minutes): 45 Diagnosis - Discharge Diagnosis (1) TIA (transient ischemic attack) Status: Acute (2) LUE numbness Status: Acute (3) HTN (hypertension) Status: Acute (4) AD (Alzheimer's disease) Status: Acute Hospital Course - Lab Results Lab Results: Micro Results 01/03/17 17:00 Blood Blood Culture - Preliminary NO GROWTH AFTER 4 DAYS 01/03/17 17:00 Blood Blood Culture - Preliminary NO GROWTH AFTER 4 DAYS Most Recent Lab Values WBC 7.1 K/uL (4.8-10.8) 01/01/17 15:52 RBC 4.59 Mil/uL (3.80-5.20) 01/01/17 15:52 Hgb 11.0 g/dL (11.0-16.0) 01/01/17 15:52 Hct 35.9 % (34.0-47.0) 01/01/17 15:52 MCV 78.2 fL (81.0-99.0) L 01/01/17 15:52 MCH 24.0 pg (27.0-31.0) L 01/01/17 15:52 MCHC 30.7 g/dL (33.0-37.0) L 01/01/17 15:52 RDW 18.3 % (11.5-14.5) H 01/01/17 15:52 Plt Count 245 K/uL (130-400) 01/01/17 15:52 MPV 9.8 fL (7.2-11.7) 01/01/17 15:52 Neut % (Auto) 73.2 % (50.0-75.0) 01/01/17 15:52 Lymph % (Auto) 16.5 % (20.0-40.0) L 01/01/17 15:52 Amite % (Auto) 8.5 % (0.0-10.0) 01/01/17 15:52 Eos % (Auto) 1.0 % (0.0-4.0) 01/01/17 15:52 Baso % (Auto) 0.8 % (0.0-2.0) 01/01/17 15:52 Neut # 5.2 K/uL (1.8-7.0) 01/01/17 15:52 Lymph # 1.2 K/uL (1.0-4.3) 01/01/17 15:52 Amite # 0.6 K/uL (0.0-0.8) 01/01/17 15:52 Eos # 0.1 K/uL (0.0-0.7) 01/01/17 15:52 Baso # 0.1 K/uL (0.0-0.2) 01/01/17 15:52 PT 11.5 SECONDS (9.7-12.2) 01/01/17 15:52 INR 1.0 01/01/17 15:52 APTT 41 SECONDS (21-34) H 01/01/17 15:52 Sodium 139 mmol/L (132-148) 01/03/17 07:24 Potassium 4.0 mmol/L (3.6-5.2) 01/03/17 07:24 Chloride 107 mmol/L (98-107) 01/03/17 07:24 Carbon Dioxide 25 mmol/L (22-30) 01/03/17 07:24 Anion Gap 11 (10-20) 01/03/17 07:24 BUN 33 mg/dL (7-17) H 01/03/17 07:24 Creatinine 2.2 MG/DL (0.7-1.2) H 01/03/17 07:24 Est GFR ( Amer) 26 01/03/17 07:24 Est GFR (Non-Af Amer) 22 01/03/17 07:24 POC Glucose (mg/dL) 259 mg/dL (65-110) H 01/07/17 17:15 Random Glucose 183 mg/dL (65-105) H 01/03/17 07:24 Hemoglobin A1c 6.8 % (4.2-6.5) H 01/01/17 15:52 Calcium 8.9 mg/dl (8.6-10.4) 01/03/17 07:24 Total Bilirubin 0.8 mg/dL (0.2-1.3) 01/01/17 15:52 AST 40 U/L (14-36) H 01/01/17 15:52 ALT 20 U/L (9-52) 01/01/17 15:52 Alkaline Phosphatase 226 U/L (38-126) H 01/01/17 15:52 Troponin I 0.0590 ng/mL (0.00-0.120) 01/01/17 15:52 Total Protein 9.1 g/dL (6.3-8.3) H 01/01/17 15:52 Albumin 3.5 g/dL (3.5-5.0) 01/01/17 15:52 Globulin 5.6 gm/dL (2.2-3.9) H 01/01/17 15:52 Albumin/Globulin Ratio 0.6 (1.0-2.1) L 01/01/17 15:52 Triglycerides 132 mg/dL (0-149) 01/01/17 15:52 Cholesterol 166 mg/dL (0-199) 01/01/17 15:52 LDL Cholesterol Direct 91 mg/dL (0-129) 01/01/17 15:52 HDL Cholesterol 41 mg/dL (30-70) 01/01/17 15:52 Vitamin B12 571 pg/mL (239-931) 01/01/17 23:03 Folate 7.0 ng/mL 01/01/17 23:03 Free T4 1.22 ng/dL (0.78-2.19) 01/01/17 23:03 TSH 3rd Generation 0.92 mIU/L (0.46-4.68) 01/01/17 23:03 Prolactin 14.0 ng/mL (3.0-18.9) 01/01/17 23:03 Rheum Arthritis Panel Negative (NEGATIVE) 01/03/17 17:08 CAROLYN 6 Profile Negative (NEGATIVE) 01/03/17 17:08 RPR Titer 1:32 (NONREACTIVE) H 01/01/17 23:03 RPR Reactive (NONREACTIVE) H 01/01/17 23:03 T.pallidum Ab (FTA-ABS) Nonreactive (Nonreactive) 01/01/17 23:03 HIV 1&2 Antibody Screen Negative (NEGATIVE) 01/03/17 17:08 Blood Type O POSITIVE 01/01/17 15:54 Antibody Screen Negative 01/01/17 15:54 - Hospital Course Hospital Course: 81 yr old female yr old female admitted from [place] for AMS and left facial droop an dLE weakness MRI - No acute intracranial hemorrhage or infarct. Chronic white matter basal nuclei and brainstem ischemic changes. RPR- + ve awaiting- FTA result , VDRL pt is afberile, no shortness of breath echocardogram shows severe aortic stenosis D/W Dr. Sanchez cleared to discharge to [facility] from ID standpoint and continue rocephiln x 5 days until FTA result is back cleared for discharge to [facility] today [place] [facility] - Head Exam Head Exam: ATRAUMATIC, NORMAL INSPECTION, NORMOCEPHALIC - Eye Exam Eye Exam: EOMI, Normal appearance, PERRL Pupil Exam: NORMAL ACCOMODATION, PERRL - ENT Exam ENT Exam: Mucous Membranes Moist - Respiratory Exam Respiratory Exam: Clear to PA & Lateral, NORMAL BREATHING PATTERN - Cardiovascular Exam Cardiovascular Exam: Systolic Murmur Additional comments: 2/6 ESM at aortic area - GI/Abdominal Exam GI & Abdominal Exam: Normal Bowel Sounds Discharge Plan - Discharge Medications Prescriptions: cefTRIAXone [Rocephin] 2 gm IV DAILY #5 vial - Follow Up Plan Condition: GOOD Disposition: REHAB FACILITY/REHAB UNIT Instructions: Transient Ischemic Attack (DC), Diabetic Foot Care (DC), Basic Carbohydrate Counting (DC), Meal Planning with the Plate Method (DC), Meal Planning with Diabetes Exchanges (DC), Hypertensive Crisis (DC)
[2017-01-11 14:15] VITALS: O2SAT 98
== END 2017-01-07 18:00 | DRG 56 ==
LOC: C.ER 15:08 → C.9E 17:08 → C.6T 17:41
PROVIDERS: ADMIT Internal Medicine; ATTEND Internal Medicine
DX: A52.3 Neurosyphilis, unspecified (principal); G45.9 Transient cerebral ischemic attack, unspecified; J69.0 Pneumonitis due to inhalation of food and vomit; G46.3 Brain stem stroke syndrome; E11.649 Type 2 diabetes mellitus with hypoglycemia without coma; A53.0 Latent syphilis, unspecified as early or late; R53.1 Weakness; G30.9 Alzheimer's disease, unspecified; F02.80 Dementia in other diseases classified elsewhere, unspecified severity, without behavioral disturbance, psychotic disturbance, mood disturbance, and anxiety; I10 Essential (primary) hypertension; I35.0 Nonrheumatic aortic (valve) stenosis; I25.10 Atherosclerotic heart disease of native coronary artery without angina pectoris; I73.9 Peripheral vascular disease, unspecified; E78.5 Hyperlipidemia, unspecified; Z95.5 Presence of coronary angioplasty implant and graft; Z79.4 Long term (current) use of insulin

== ENCOUNTER 2017-02-01 12:45 | Inpatient (IN) | payer MEDICARE, OTHER ==
[2017-02-01 12:45] VITALS: BMI 29.2
--- NOTE | 2017-02-01 13:30 | C.PDOC ---
History Of Present Illness 81 year old female was brought to the emergency department by EMS from residential for evaluation of high blood pressure and slurred speech since this morning. As per daughter, patient's speech is slightly slurred, but more so in the emergency department. Patient states blood pressure was better on arrival to the emergency department at 166/84. She has received lasix and denies fever, headache, chest pain, or other complaints at this time. Time Seen by Provider: 02/01/17 13:12 Chief Complaint (Nursing): High Blood Pressure History Per: Patient, EMS, Family (daughter ) History/Exam Limitations: no limitations Onset/Duration Of Symptoms: Hrs Current Symptoms Are (Timing): Still Present Associated Symptoms: Other (slurred speech ). denies: Chest Pain, Headache Recent travel outside of the [place]: No Additional History Per: Prior Records (residential ) Past Medical History Reviewed: Historical Data, Nursing Documentation, Vital Signs Vital Signs: Last Vital Signs Temp 98.8 F 02/01/17 15:52 Pulse 89 02/01/17 17:41 Resp 20 02/01/17 17:41 BP 186/84 H 02/01/17 17:41 Pulse Ox 98 02/01/17 18:52 - Medical History PMH: Dementia, HTN Surgical History: Coronary Stent Family History: States: Unknown Family Hx - Social History Hx Alcohol Use: No Hx Substance Use: No - Immunization History Hx Tetanus Toxoid Vaccination: No Hx Influenza Vaccination: No Hx Pneumococcal Vaccination: No Review Of Systems Constitutional: Positive for: Other (elevated blood pressure ). Negative for: Fever, Chills Cardiovascular: Negative for: Chest Pain, Palpitations Respiratory: Negative for: Cough, Shortness of Breath Gastrointestinal: Negative for: Nausea, Vomiting, Abdominal Pain, Diarrhea Neurological: Positive for: Change in Speech (slurred speech ). Negative for: Headache, Dizziness Physical Exam - Physical Exam Appears: Non-toxic, No Acute Distress, Other (Patient's blood pressure during exam was 182/106 with repeated jerks of the left arm. ) Skin: Warm, Dry Head: Atraumatic Eye(s): bilateral: Normal Inspection, PERRL, EOMI Oral Mucosa: Moist Neck: Supple Chest: Symmetrical, No Deformity Cardiovascular: Other (Atrial fibrillation) Respiratory: Normal Breath Sounds, No Rhonchi, No Wheezing Gastrointestinal/Abdominal: Soft, No Tenderness, No Distention, No Guarding, No Rebound Extremity: Normal ROM, No Tenderness, No Pedal Edema, No Calf Tenderness, Capillary Refill (good capillary refill, less than two seconds ), No Deformity, No Swelling Neurological/Psych: Oriented x3, No Normal Speech (Speech is slurred on exam. As per daughter, speech is more slurred then patient's baseline), Normal Cognition, Normal Cranial Nerves, Normal Motor, Normal Sensation ED Course And Treatment - Laboratory Results Result Diagrams: 02/01/17 14:02 02/01/17 15:21 ECG: Interpreted By Me, Viewed By Me () ECG Rhythm: 2nd Degree HB Mobitz II, ST/T Changes ECG Interpretation: Abnormal Rate From EC O2 Sat by Pulse Oximetry: 98 (room air ) - CT Scan/US CT HEAD W/O CONTRAST Other Rad Studies (CT/US): Read By Radiologist, Radiology Report Reviewed CT/US Interpretation: HISTORY: elevated BP, dizzy. COMPARISON: Noncontrast head CT performed 01/01/17. TECHNIQUE: Axial computed tomography images were obtained through the head/brain without intravenous contrast. Radiation dose: Total exam DLP = 981.84 mGy-cm. This CT exam was performed using one or more of the following dose reduction techniques: Automated exposure control, adjustment of the mA and/or kV according to patient size, and/or use of iterative reconstruction technique. FINDINGS: Streak artifact obscures evaluation of the skullbase. HEMORRHAGE: No intracranial hemorrhage. BRAIN: Diffuse atrophy with prominence of the ventricles and sulci noted. No mass effect or edema. Intracranial atherosclerotic calcifications. Scattered periventricular and subcortical white matter hypodensities, which are nonspecific, but often seen with chronic microvascular ischemic disease. Tiny bilateral basal ganglia hypodensities measuring up to 2 mm top possibly lobe infarcts. Please note that MRI with diffusion imaging is more sensitive in the detection of acute ischemic event. VENTRICLES: No hydrocephalus. CALVARIUM: Unremarkable. PARANASAL SINUSES: Mucosal thickening of the left maxillary, left frontal ethmoid air cells, left frontal sinus, and bilateral sphenoid sinuses. MASTOID AIR CELLS: Partial opacification/fluid of the left mastoid air cells. OTHER FINDINGS: None. IMPRESSION: Generalized atrophy. Nonspecific white matter changes. Tiny bilateral basal ganglia hypodensities measuring up to 2 mm top possibly lobe infarcts. Mucosal thickening of the left maxillary, left frontal ethmoid air cells, left frontal sinus, and bilateral sphenoid sinuses. Correlate clinically for sinusitis. Partial opacification/fluid involving the left mastoid air cells. Correlate clinically for mastoiditis. Progress Note: Labs and EKG were ordered. CT head ordered. Hydrolazine and Vasotec po. Case was d/w who accepted patient to Tele and requested for cardiology consultation. - Physician Consult Information Time Consulting Physician Contacted: 16:05 Physician Contacted: Ubaldo Cooper Outcome Of Conversation: Discussed with Dr. Cooper and he agrees on plan and admission to his services. NIHSS Stroke Scale - How Severe is the Stoke Level of Consciousness: 0=Alert LOC to Questions: 0=Both comments correct LOC to commands: 0=Obeys both correctly Best Gaze: 0=Normal Visual: 0=No visual loss Facial: 1=Minor asymmetry Motor Arm - Left: 0=No drift Motor Arm - Right: 0=No drift Motor Leg - Left: 0=No drift Motor Leg - Right: 0=No drift Limb Ataxia: 0=Absent Sensory: 0=Normal Best Language: 0=No aphasia Dysarthia: 1=Mild to moderate slurring Extinction & Inattention (Neglect): 0=Normal, no object Score: 2 Severity Of Stroke: 1-4= Minor Stroke Disposition - Disposition Disposition: HOSPITALIZED Disposition Time: 15:58 Condition: FAIR - Clinical Impression Clinical Impression: TIA (transient ischemic attack), Mobitz type II block - Scribe Statement The provider has reviewed the documentation as recorded by the Scribe Rossy Hastings All medical record entries made by the Scribe were at my direction and personally dictated by me. I have reviewed the chart and agree that the record accurately reflects my personal performance of the history, physical exam, medical decision making, and the department course for this patient. I have also personally directed, reviewed, and agree with the discharge instructions and disposition.
[2017-02-01 14:05] LABS: BASO # 0.1 K/uL (0.0-0.2); BASO % 1.4 % (0.0-2.0); EOS # 0.2 K/uL (0.0-0.7); EOS % 3.1 % (0.0-4.0); HEMATOCRIT 32.9 % (34.0-47.0); LYMPH # 1.3 K/uL (1.0-4.3); LYMPH % 20.2 % (20.0-40.0); MEAN CORPUSCULAR HEMOGLOBIN 24.3 pg (27.0-31.0); MEAN CORPUSCULAR HGB CONC 31.2 g/dL (33.0-37.0); MEAN PLATELET VOLUME 9.3 fL (7.2-11.7); MONO # 0.6 K/uL (0.0-0.8); MONO % 8.8 % (0.0-10.0); RED CELL DISTRIBUTION WIDTH 18.8 % (11.5-14.5); WHITE BLOOD COUNT 6.4 K/uL (4.8-10.8)
--- NOTE | 2017-02-01 14:19 | RAD ---
HISTORY: dizzy, elevated bp COMPARISON: Chest x-ray performed 01/01/17 TECHNIQUE: Chest, one view. FINDINGS: Examination limited by habitus and hypoinflation. LUNGS: Mild to moderate central vascular and pulmonary venous congestion. Please note that chest x-ray has limited sensitivity for the detection of pulmonary masses. PLEURA: No significant pleural effusion identified. No definite pneumothorax . CARDIOVASCULAR: Heart size appears within normal limits. OSSEOUS STRUCTURES: Degenerative changes. VISUALIZED UPPER ABDOMEN: Unremarkable. OTHER FINDINGS: None. IMPRESSION: Mild to moderate central vascular and pulmonary venous congestion.
--- NOTE | 2017-02-01 14:37 | CT ---
PROCEDURE: CT HEAD WITHOUT CONTRAST. HISTORY: elevated BP, dizzy COMPARISON: Noncontrast head CT performed 01/01/17 TECHNIQUE: Axial computed tomography images were obtained through the head/brain without intravenous contrast. Radiation dose: Total exam DLP = 981.84 mGy-cm. This CT exam was performed using one or more of the following dose reduction techniques: Automated exposure control, adjustment of the mA and/or kV according to patient size, and/or use of iterative reconstruction technique. FINDINGS: Streak artifact obscures evaluation of the skullbase. HEMORRHAGE: No intracranial hemorrhage. BRAIN: Diffuse atrophy with prominence of the ventricles and sulci noted. No mass effect or edema. Intracranial atherosclerotic calcifications. Scattered periventricular and subcortical white matter hypodensities, which are nonspecific, but often seen with chronic microvascular ischemic disease. Tiny bilateral basal ganglia hypodensities measuring up to 2 mm top possibly lobe infarcts. Please note that MRI with diffusion imaging is more sensitive in the detection of acute ischemic event. VENTRICLES: No hydrocephalus. CALVARIUM: Unremarkable. PARANASAL SINUSES: Mucosal thickening of the left maxillary, left frontal ethmoid air cells, left frontal sinus, and bilateral sphenoid sinuses. MASTOID AIR CELLS: Partial opacification/fluid of the left mastoid air cells. OTHER FINDINGS: None. IMPRESSION: Generalized atrophy. Nonspecific white matter changes. Tiny bilateral basal ganglia hypodensities measuring up to 2 mm top possibly lobe infarcts. Mucosal thickening of the left maxillary, left frontal ethmoid air cells, left frontal sinus, and bilateral sphenoid sinuses. Correlate clinically for sinusitis. Partial opacification/fluid involving the left mastoid air cells. Correlate clinically for mastoiditis.
[2017-02-01 15:12] LABS: TROPONIN I 0.023 ng/mL (0.00-0.120)
[2017-02-01 15:38] LABS: ALB/GLOB RATIO 0.7 (1.0-2.1); BILIRUBIN,TOTAL 0.6 mg/dL (0.2-1.3); CALCIUM 8.6 mg/dl (8.6-10.4); POTASSIUM 3.9 mmol/L (3.6-5.2); TOTAL PROTEIN 7.5 g/dL (6.3-8.3)
[2017-02-01] MEDS ORDERED: Labetalol 25mg/5ml Syringe IV STA (15:57)
[2017-02-01] MEDS: (Novolog) Insulin Aspart, Recombinant 100 u/ml 10 ml vial SC SCH ×2 (16:49→22:30)
[2017-02-01 17:16] LABS: RBC URINE 2 /hpf (0-3); URINE BACTERIA RARE (<OCC); URINE BILIRUBIN NEGATIVE (NEGATIVE); URINE BLOOD NEGATIVE (NEGATIVE); URINE COLOR Yellow (YELLOW); URINE GLUCOSE (UA) 1+ mg/dL (Normal); URINE KETONE NEGATIVE (NEGATIVE); URINE LEUKOCYTE ESTERASE TRACE Leu/uL (Negative); URINE PROTEIN 2+ mg/dL (NEGATIVE); URINE UROBILINOGEN NORMAL mg/dL (0.2-1.0); WBC URINE 3 /hpf (0-5)
--- NOTE | 2017-02-01 17:56 | CP.PCM.CON ---
History of Present Illness - History of Present Illness History of Present Illness: Consultation for abnormal EKG HPI: Olga is a 81-year-old -[place] female with past medical history significant for diabetes mellitus for the last 9 years. Initially she was on oral hypoglycemics and for the last 4-5 years has been on insulin therapy. She also has history of hypertension dyslipidemia. Olga was living independently as of 4 months ago at which time she had sustained a syncopal episode and fall subsequent to that she was admitted to the hospital and then was transferred to the rehab in a skilled nursing. Since the last 3-4 months her activity has been very limited secondary to severe disc deconditioning and weakness in the lower extremities. She was admitted again back in second week of December for an episode of near syncope while she was at the skilled nursing. She had workup with transthoracic echocardiogram carotid Dopplers and MRIs. Transthoracic echocardiogram showed her to have severe aortic stenosis with valve area of 0.7 cm and peak transaortic gradients of 70-80 mmHg. Since then she was transferred back to the rehab at the skilled nursing and has very limited activity. She denies having any chest pains at rest. She was diagnosed with shortness of breath associated to underlying asthma about 40 years ago. She does not use any oral inhalers. She was sent from the skilled nursing at this time for uncontrolled hypertension and slurring of the speech. While in the emergency room her speech was worsened and she underwent workup for TIA and stroke. He was incidentally found in the EKG to have a high-grade type II AV block. Review of Systems - Review of Systems All systems: reviewed and no additional remarkable complaints except - Constitutional Constitutional: As Per HPI. absent: Anorexia, Chills, Daytime Sleepiness, Excessive Sweating, Fatigue, Fever, Frequent Falls, Headache, Increased Appetite , Lethargy, Malaise, Night Sweats, Snoring, Sleep Apnea, Weight Gain, Weight Loss, Weakness, Other - EENT Eyes: As Per HPI. absent: Blind Spots, Blurred Vision, Change in Vision, Decreased Night Vision, Diplopia, Discharge, Dry Eye, Exophthalmos, Floaters, Irritation, Itchy Eyes, Loss of Peripheral Vision, Pain, Photophobia, Requires Corrective Lenses, Sees Flashes, Spots in Vision, Tunnel Vision, Other Visual Disturbances, Loss of Vision, Other Ears: As Per HPI. absent: Decreased Hearing, Ear Discharge, Ear Pain, Tinnitus , Abnormal Hearing, Disequilibrium, Dizziness, Other Nose/Mouth/Throat: As Per HPI. absent: Epistaxis, Nasal Congestion, Nasal Discharge, Nasal Obstruction, Nasal Trauma, Nose Pain, Post Nasal Drip, Sinus Pain, Sinus Pressure, Bleeding Gums, Change in Voice, Dental Pain, Dry Mouth, Dysphagia, Halitosis, Hoarsness, Lip Swelling, Mouth Lesions, Mouth Pain, Odynophagia, Sore Throat, Throat Swelling, Tongue Swelling, Facial Pain, Neck Pain, Neck Mass, Other - Breasts Breasts: As Per HPI - Cardiovascular Cardiovascular: As Per HPI, Slow Heart Rate. absent: Acrocyanosis, Chest Pain, Chest Pain at Rest, Chest Pain with Activity, Claudication, Diaphoresis, Dyspnea , Dyspnea on Exertion, Edema, Irregular Heart Rhythm, Pain Radiating to Arm/Neck /Jaw, Leg Edema, Leg Ulcers, Lightheadedness, Orthopnea, Palpitations, Paroxysmal Nocturnal Dyspnea, Pedal Edema, Radiating Pain, Rapid Heart Rate, Syncope, Other - Respiratory Respiratory: As Per HPI. absent: Cough, Dyspnea, Hemoptysis, Dyspnea on Exertion, Wheezing, Snoring, Stridor, Pain on Inspiration, Chest Congestion, Excessive Mucous Production, Change in Mucous Color, Pain with Coughing, Other - Gastrointestinal Gastrointestinal: As Per HPI. absent: Abdominal Pain, Belching, Bloating, Change in Bowel Habits, Change in Stool Character, Coffee Ground Emesis, Constipation, Cramping, Diarrhea, Dyspepsia, Dysphagia, Early Satiety, Excessive Flatus, Fecal Incontinence, Heartburn, Hematemesis, Hematochezia, Loose Stools, Melena, Nausea, Odynophagia, Temesmus, Vomiting, Other - Genitourinary Genitourinary: As Per HPI - Musculoskeletal Musculoskeletal: As Per HPI. absent: Abnormal Gait, Arthralgias, Atrophy, Back Pain, Deformity, Joint Swelling, Limited Range of Motion, Loss of Height, Muscle Cramps, Muscle Weakness, Myalgias, Neck Pain, Numbness, Radiating Pain into Limb, Stiffness, Tingling, Other - Integumentary Integumentary: As Per HPI. absent: Acne, Alopecia, Bleeding Lesions, Change in Hair, Change in Nails, Change in Pigmentation, Changing Lesions, Dry Skin, Erythema, Furuncle, Hirsutism, Lesions, New Lesions, Non-Healing Lesions, Photosensitivity, Pruritus, Rash, Skin Pain, Skin Ulcer, Sores, Striae, Swelling , Unusual Bruising, Wounds, Jaundice, Other - Neurological Neurological: As Per HPI. absent: Abnormal Gait, Abnormal Hearing, Abnormal Movements, Abnormal Speech, Behavioral Changes, Burning Sensations, Confusion, Convulsions, Disequilibrium, Dizziness, Numbness, Focal Weakness, Frequent Falls , Headaches, Lack of Coordination, Loss of Vision, Memory Loss, Paresthesias, Radicular Pain, Restless Legs, Sensory Deficit, Syncope, Tingling, Tremor, Vertigo, Weakness, Other Visual Disturbances, Other - Psychiatric Psychiatric: As Per HPI. absent: Abnormal Sleep Pattern, Anhedonia, Anxiety, Auditory Hallucinations, Behavioral Changes, Change in Appetite, Change in Libido, Confusion, Depression, Difficulty Concentrating, Hallucinations, Homicidal Ideation, Hopelessness, Irritability, Memory Loss, Mood Swings, Panic Attacks, Paranoia, Suicidal Ideation, Visual Hallucinations, Tactile Hallucinations, Other - Endocrine Endocrine: As Per HPI. absent: Change in Body Appearance, Change in Libido, Cold Intolorance, Deepening of Voice, Excessive Sweating, Fatigue, Flushing, Heat Intolorance, Increase in Ring/Shoe/Hat Size, Palpitations, Polydipsia, Polyphagia, Polyuria, Other - Hematologic/Lymphatic Hematologic: As Per HPI. absent: Easy Bleeding, Easy Bruising, Lymphadenopathy , Other Past Patient History - Past Medical History & Family History Pertinent Family History: +ve for HTN and DM - Past Social History Smoking Status: Never Smoked - CARDIAC Hx Hypertension: Yes - NEUROLOGICAL Hx Dementia: Yes - HEENT Hx Cataracts: Yes (right surgery 3yrs ago) - RENAL Hx Chronic Kidney Disease: No - ENDOCRINE/METABOLIC Hx Diabetes Mellitus Type 2: Yes - HEMATOLOGICAL/ONCOLOGICAL Hx Blood Disorders: No - INTEGUMENTARY Hx Dermatological Problems: No - MUSCULOSKELETAL/RHEUMATOLOGICAL Hx Falls: No - GASTROINTESTINAL Hx Gastrointestinal Disorders: No - GENITOURINARY/GYNECOLOGICAL Hx Incontinence: Yes - PSYCHIATRIC Hx Substance Use: No - SURGICAL HISTORY Hx Coronary Stent: Yes - ANESTHESIA Hx Anesthesia: Yes Hx Anesthesia Reactions: No Hx Malignant Hyperthermia: No Meds Allergies/Adverse Reactions: Allergies Allergy/AdvReac Type Severity Reaction Status Date / Time latex Allergy ITCHING Verified 02/02/17 01:17 shrimp Allergy ITCHING Verified 02/01/17 13:06 shellfish Allergy ITCHING Uncoded 02/02/17 01:18 - Medications Medications: Current Medications Acetaminophen (Tylenol 325mg Tab) 325 mg PO Q4 PRN PRN Reason: Fever >100.4 F Stop: 02/02/17 23:59 Aspirin (Aspirin Chewable) 81 mg PO DAILY [facility] Last Admin: 02/01/17 16:48 Dose: 81 mg Enalapril Maleate (Vasotec) 20 mg PO DAILY [facility] Last Admin: 02/01/17 16:49 Dose: 20 mg Gabapentin (Neurontin) 300 mg PO DAILY [facility] Hydralazine HCl (Apresoline) 50 mg PO Q8 [facility] Last Admin: 02/01/17 16:48 Dose: 50 mg Insulin Aspart (Novolog) 0 unit SC ACHS [facility] PRN Reason: Protocol Last Admin: 02/01/17 16:49 Dose: Not Given Metoprolol Succinate (Toprol Xl) 100 mg PO DAILY [facility] Prochlorperazine (Compazine Rectal Supp) 25 mg [place] Q12H PRN PRN Reason: NAUSEA/VOMITTING Rosuvastatin Calcium (Crestor) 20 mg PO HS [facility] Sitagliptin Phosphate (Januvia) 25 mg PO DAILY [facility] Physical Exam - Constitutional Appears: Well - Head Exam Head Exam: ATRAUMATIC, NORMAL INSPECTION, NORMOCEPHALIC - Eye Exam Eye Exam: EOMI, Normal appearance, PERRL Pupil Exam: NORMAL ACCOMODATION, PERRL - ENT Exam ENT Exam: Mucous Membranes Moist, Normal Exam - Neck Exam Neck exam: Positive for: Normal Inspection - Respiratory Exam Respiratory Exam: Clear to Auscultation Bilateral, NORMAL BREATHING PATTERN - Cardiovascular Exam Cardiovascular Exam: REGULAR RHYTHM, RRR, +S1, +S2, +S4, Systolic Murmur - GI/Abdominal Exam GI & Abdominal Exam: Normal Bowel Sounds, Soft. absent: Tenderness - Extremities Exam Extremities exam: Positive for: normal inspection - Back Exam Back exam: NORMAL INSPECTION - Neurological Exam Neurological exam: Alert, CN II-XII Intact, Oriented x3, Reflexes Normal - Psychiatric Exam Psychiatric exam: Normal Affect, Normal Mood - Skin Skin Exam: Dry, Intact, Normal Color, Warm Results - Vital Signs Recent Vital Signs: Last Vital Signs Temp 98.8 F 02/01/17 15:52 Pulse 89 02/01/17 17:41 Resp 20 08/11/17 17:41 BP 186/84 H 08/11/17 17:41 Pulse Ox 98 02/01/17 17:52 - Labs Result Diagrams: 02/01/17 14:02 02/01/17 15:21 Labs: Laboratory Results - last 24 hr 02/01/17 02/01/17 16:40 16:51 POC Glucose (mg/dL) 146 H Urine Color Yellow Urine Clarity Clear Urine pH 5.0 Ur Specific [place] 1.008 Urine Protein 2+ H Urine Glucose (UA) 1+ Urine Ketones Negative Urine Blood Negative Urine Nitrate Negative Urine Bilirubin Negative Urine Urobilinogen Normal Ur Leukocyte Esterase Trace Urine WBC (Auto) 3 Urine RBC (Auto) 2 Ur Squamous Epith Cells 5 Urine Bacteria Rare Assessment & Plan (1) Mobitz type II block Assessment and Plan: cont to monitor on telemetry decrease dose of BB monitor x 48 hours will evaluate for PPM Status: Acute Priority: High (2) Aortic stenosis Assessment and Plan: RUPESH 0.7 on TTE keep pt on plavix will need further w/u with BLANKA and Cath Status: Acute (3) TIA (transient ischemic attack) Assessment and Plan: Neuro w/u in progress switched to plavix Status: Acute (4) Diabetes mellitus Assessment and Plan: per primary team Status: Chronic
[2017-02-01] MEDS ORDERED: Nitroglycerin 2% Ointment Foilpak UD TOP STA (18:24)
[2017-02-01] MEDS ORDERED: Nitroglycerin 2% Ointment Foilpak UD TOP ONE (18:27)
--- NOTE | 2017-02-02 01:54 | CP.PCM.HP ---
History of Present Illness - History of Present Illness History of Present Illness: 81 Y/O BF WITH T2DM,HTN, DEMENTIA, AND SHE HAS H/O R ARM SHAKING, NO FEVER, NO SOB, NO COUGH ,AND SHE DENIES CHEST PAIN Present on Admission - Present on Admission Any Indicators Present on Admission: Yes History of DVT/PE: No History of Uncontrolled Diabetes: Yes Urinary Catheter: No Decubitus Ulcer Present: No Review of Systems - Constitutional Constitutional: Headache - Gastrointestinal Gastrointestinal: Bloating - Musculoskeletal Musculoskeletal: Arthralgias Past Patient History - Past Social History Smoking Status: Never Smoked - CARDIAC Hx Hypertension: Yes - NEUROLOGICAL Hx Dementia: Yes - HEENT Hx Cataracts: Yes (right surgery 3yrs ago) - RENAL Hx Chronic Kidney Disease: No - ENDOCRINE/METABOLIC Hx Diabetes Mellitus Type 2: Yes - HEMATOLOGICAL/ONCOLOGICAL Hx Blood Disorders: No - INTEGUMENTARY Hx Dermatological Problems: No - MUSCULOSKELETAL/RHEUMATOLOGICAL Hx Falls: No - GASTROINTESTINAL Hx Gastrointestinal Disorders: No - GENITOURINARY/GYNECOLOGICAL Hx Incontinence: Yes - PSYCHIATRIC Hx Substance Use: No - SURGICAL HISTORY Hx Coronary Stent: Yes - ANESTHESIA Hx Anesthesia: Yes Hx Anesthesia Reactions: No Hx Malignant Hyperthermia: No Meds Allergies/Adverse Reactions: Allergies Allergy/AdvReac Type Severity Reaction Status Date / Time latex Allergy ITCHING Verified 02/02/17 01:17 shrimp Allergy ITCHING Verified 02/01/17 13:06 shellfish Allergy ITCHING Uncoded 02/02/17 01:18 Physical Exam - Constitutional Appears: Non-toxic - Head Exam Head Exam: ATRAUMATIC, NORMAL INSPECTION, NORMOCEPHALIC - ENT Exam ENT Exam: Mucous Membranes Moist, Normal Exam - Neck Exam Neck exam: Positive for: Normal Inspection - Respiratory Exam Respiratory Exam: Clear to Auscultation Bilateral, NORMAL BREATHING PATTERN - Cardiovascular Exam Cardiovascular Exam: REGULAR RHYTHM, +S1, +S2, Systolic Murmur - GI/Abdominal Exam GI & Abdominal Exam: Normal Bowel Sounds, Soft - Back Exam Back exam: NORMAL INSPECTION - Neurological Exam Neurological exam: Abnormal Gait, Alert, CN II-XII Intact, Oriented x3, Reflexes Normal - Psychiatric Exam Psychiatric exam: Flat Affect Results - Vital Signs Recent Vital Signs: Last Vital Signs Temp 98.1 F 02/01/17 21:45 Pulse 106 H 02/01/17 21:45 Resp 20 02/01/17 21:45 BP 158/82 H 02/01/17 21:45 Pulse Ox 96 02/01/17 21:00 - Labs Result Diagrams: 02/01/17 14:02 02/01/17 15:21 Labs: Laboratory Results - last 24 hr 02/01/17 02/01/17 02/01/17 16:38 16:40 16:51 POC Glucose (mg/dL) 146 H Urine Color Yellow Urine Clarity Clear Urine pH 5.0 Ur Specific [place] 1.008 Urine Protein 2+ H Urine Glucose (UA) 1+ Urine Ketones Negative Urine Blood Negative Urine Nitrate Negative Urine Bilirubin Negative Urine Urobilinogen Normal Ur Leukocyte Esterase Trace Urine WBC (Auto) 3 Urine RBC (Auto) 2 Ur Squamous Epith Cells 5 Urine Bacteria Rare C. difficile Ag & Toxin Negative 02/01/17 21:26 POC Glucose (mg/dL) 173 H Urine Color Urine Clarity Urine pH Ur Specific [place] Urine Protein Urine Glucose (UA) Urine Ketones Urine Blood Urine Nitrate Urine Bilirubin Urine Urobilinogen Ur Leukocyte Esterase Urine WBC (Auto) Urine RBC (Auto) Ur Squamous Epith Cells Urine Bacteria C. difficile Ag & Toxin Assessment & Plan (1) Diabetes mellitus Status: Chronic (2) Mobitz type II block Status: Acute Priority: High (3) HTN (hypertension) Status: Chronic Priority: High
--- NOTE | 2017-02-02 08:21 | CP.PCM.CON ---
History of Present Illness - History of Present Illness History of Present Illness: CONSULT DICTATED EPISODE OF SLURRED SPEECH ASA FAILURE SWITCH TO PLAVIX MRI BRAIN (DWI/ADC) MISMATCH FOR AC STROKE PROCESS Past Patient History - Past Social History Smoking Status: Never Smoked - CARDIAC Hx Hypertension: Yes - NEUROLOGICAL Hx Dementia: Yes - HEENT Hx Cataracts: Yes (right surgery 3yrs ago) - RENAL Hx Chronic Kidney Disease: No - ENDOCRINE/METABOLIC Hx Diabetes Mellitus Type 2: Yes - HEMATOLOGICAL/ONCOLOGICAL Hx Blood Disorders: No - INTEGUMENTARY Hx Dermatological Problems: No - MUSCULOSKELETAL/RHEUMATOLOGICAL Hx Falls: No - GASTROINTESTINAL Hx Gastrointestinal Disorders: No - GENITOURINARY/GYNECOLOGICAL Hx Incontinence: Yes - PSYCHIATRIC Hx Substance Use: No - SURGICAL HISTORY Hx Coronary Stent: Yes - ANESTHESIA Hx Anesthesia: Yes Hx Anesthesia Reactions: No Hx Malignant Hyperthermia: No Meds Allergies/Adverse Reactions: Allergies Allergy/AdvReac Type Severity Reaction Status Date / Time latex Allergy ITCHING Verified 02/02/17 01:17 shrimp Allergy ITCHING Verified 02/01/17 13:06 shellfish Allergy ITCHING Uncoded 02/02/17 01:18 - Medications Medications: Current Medications Acetaminophen (Tylenol 325mg Tab) 325 mg PO Q4 PRN PRN Reason: Fever >100.4 F Stop: 02/02/17 23:59 Clopidogrel Bisulfate (Plavix) 75 mg PO DAILY [facility] Enalapril Maleate (Vasotec) 20 mg PO DAILY [facility] Last Admin: 02/01/17 16:49 Dose: 20 mg Enoxaparin Sodium (Lovenox) 40 mg SC DAILY [facility] Gabapentin (Neurontin) 300 mg PO DAILY [facility] Hydralazine HCl (Apresoline) 50 mg PO Q8 [facility] Last Admin: 02/02/17 06:12 Dose: 50 mg Insulin Aspart (Novolog) 0 unit SC ACHS [facility] PRN Reason: Protocol Last Admin: 02/01/17 22:30 Dose: Not Given Metoprolol Succinate (Toprol Xl) 100 mg PO DAILY [facility] Pneumococcal Polyvalent Vaccine (Pneumovax 23 Vaccine) 0.5 ml IM .ONCE ONE Stop: 02/05/17 10:01 Prochlorperazine (Compazine Rectal Supp) 25 mg [place] Q12H PRN PRN Reason: NAUSEA/VOMITTING Last Admin: 02/01/17 19:01 Dose: 25 mg Rosuvastatin Calcium (Crestor) 20 mg PO HS [facility] Last Admin: 02/01/17 21:45 Dose: 20 mg Sitagliptin Phosphate (Januvia) 25 mg PO DAILY [facility] Results - Vital Signs Recent Vital Signs: Last Vital Signs Temp 98.5 F 02/02/17 06:00 Pulse 108 H 02/02/17 06:00 Resp 20 02/02/17 06:00 BP 167/92 H 02/02/17 06:00 Pulse Ox 96 02/02/17 06:00 - Labs Result Diagrams: 02/01/17 14:02 02/01/17 15:21 Labs: Laboratory Results - last 24 hr 02/01/17 02/01/17 02/01/17 16:38 16:40 16:51 POC Glucose (mg/dL) 146 H Urine Color Yellow Urine Clarity Clear Urine pH 5.0 Ur Specific [place] 1.008 Urine Protein 2+ H Urine Glucose (UA) 1+ Urine Ketones Negative Urine Blood Negative Urine Nitrate Negative Urine Bilirubin Negative Urine Urobilinogen Normal Ur Leukocyte Esterase Trace Urine WBC (Auto) 3 Urine RBC (Auto) 2 Ur Squamous Epith Cells 5 Urine Bacteria Rare C. difficile Ag & Toxin Negative 02/01/17 02/02/17 21:26 06:25 POC Glucose (mg/dL) 173 H 164 H Urine Color Urine Clarity Urine pH Ur Specific [place] Urine Protein Urine Glucose (UA) Urine Ketones Urine Blood Urine Nitrate Urine Bilirubin Urine Urobilinogen Ur Leukocyte Esterase Urine WBC (Auto) Urine RBC (Auto) Ur Squamous Epith Cells Urine Bacteria C. difficile Ag & Toxin
[2017-02-02] MEDS: (Novolog) Insulin Aspart, Recombinant 100 u/ml 10 ml vial SC SCH ×4 (08:26→21:55)
[2017-02-02] MEDS: Enoxaparin 40 mg Syringe SC SCH (09:16)
[2017-02-02] MEDS: Metoprolol Succinate 100 mg XL Tab PO SCH (11:34)
--- NOTE | 2017-02-02 14:17 | CON ---
DATE: NEUROLOGY CONSULTATION ATTENDING PHYSICIAN: Ubaldo Cooper MD LOCATION: Room 659, bed A. REASON FOR THE CONSULTATION: History of slurred speech. CHIEF COMPLAINT: The patient was brought in from the residential with a history of slurred speech being witnessed by her daughter. By the time they arrived emergency room, the whole symptoms resolved. From neurological point of view, I was called in to evaluate her for further management. HISTORY OF PRESENT ILLNESS: Ms. Olga Sorto is a 81-year-old right-handed -[place] female who was recently admitted into [facility], being worked up and being sent to residential. She was witnessed slurred speech by her daughter. No history of loss of consciousness. No history of involuntary movements. No history of fall. No history of head trauma. The whole episode had been resolved by the time they brought her into the hospital. She claims that no similar episodes did happen in the past. She was also found to have a high blood pressure and abnormal EKG. PERSONAL HISTORY: Denies smoking or alcohol use. ALLERGIES: ALLERGIC TO LASIX AND SHRIMP. MEDICATIONS: Hydralazine, aspirin, Compazine, Crestor, Januvia, Neurontin, metoprolol, enalapril and Tylenol. PAST MEDICAL HISTORY: Hypertension, [id number] diabetes mellitus, cardiac arrhythmias, TIAs, strokes, and neuropathy. REVIEW OF SYSTEMS: A 12-point system being reviewed. From neurological system, the patient does have new onset of slurred speech. PHYSICAL EXAMINATION: VITAL SIGNS: Blood pressure 167/92, mean arterial pressure of 117, respiratory rate 18, temperature 98.5, and pulse rate 108 and regular. NECK: Supple. No carotid bruits. HEART: Sounds regular. CHEST: Fair air entry. EXTREMITIES: No edema in legs. NEUROLOGIC: The patient is a little bit combative and apprehensive because of waking her up in the morning. She feels sleepy. She does not want to cooperate with me. However, the speech is intact. She follows commands at times. CRANIAL NERVE EXAMINATION: Brief examination, no focality noted. MOTOR EXAMINATION: She moves all 4 extremities against gravity. Deep tendon reflexes are trace throughout. Plantars are mute. COORDINATION AND GAIT: Deferred at this time. The patient was not intend to do it. LABORATORY DATA: Workup, EKG shows Mobitz type II heart block. CT of the head reviewed, no acute pathology is noted. Blood workup: Hemoglobin 10.2, hematocrit 32.9 and platelet 225. PT 11.4, INR 1.0, PTT 48. Sodium 140, potassium 3.8, chloride 107, bicarbonate 22, BUN 15, creatinine 1.9, glucose 164, calcium 8.6. Alkaline phosphatase 161, albumin 3.2, globulin 4.3, albumin-globulin ration 0.7. Urine, proteinuria 2+. RECOMMENDATIONS: 1. The patient with aspirin. The patient better to be switched to Plavix for 6 months. If it is stable, then it can be switched back to aspirin. 2. Blood pressure control to keep the mean arterial pressure around 100. 3. Cardiology consultation because of new heart block. 4. Diabetic control and weight control to be done. 5. Physical therapy, getting out of the bed. 6. MRI of the brain also scheduled to rule out any acute process. Homer Manuel MD
--- NOTE | 2017-02-02 16:43 | MRI ---
PROCEDURE: MRI BRAIN WITHOUT CONTRAST HISTORY: acute stroke COMPARISON: Comparison is made to the previous study dated 01/01/2017 TECHNIQUE: Multiplanar, multisequence MR images of the brain were obtained without intravenous contrast enhancement. FINDINGS: HEMORRHAGE: None DWI: No evidence of an acute or early subacute infarction. BRAIN PARENCHYMA: No mass effect or edema. Again seen are foci of hyperintense signal in the white matter suggestive of chronic microvascular ischemic disease. Uzck-hj-iazcmday atrophy. VENTRICLES: Unremarkable. No hydrocephalus. CRANIUM: Unremarkable. ORBITS: Grossly unremarkable. PARANASAL SINUSES/MASTOIDS: Again seen is complete opacification of the left frontal sinus and left ethmoid sinus. There is a moderate mucosal thickening in the left maxillary sinus. VASCULAR SYSTEM: Skull base flow voids intact. OTHER FINDINGS: Opacification of the left mastoid is also again noted suggestive of mastoiditis. IMPRESSION: No evidence of acute or subacute infarct. No evidence of mass lesion or midline shift. No significant interval change since the previous exam noted. Re- demonstration of moderate sinuses mucosal disease and partial opacification of the left mastoid suggestive of mastoiditis.
--- NOTE | 2017-02-03 | CP.PCM.PN ---
Subjective - Date & Time of Evaluation Date of Evaluation: 02/02/17 Time of Evaluation: 11:15 - Subjective Subjective: FEELS BETTER, NO CHEST PAIN, NO NAUSEA, NO FEVER Objective - Vital Signs/Intake and Output Vital Signs (last 24 hours): Temp Pulse Resp BP Pulse Ox 98.2 F 86 20 178/90 H 100 02/02/17 16:21 02/02/17 16:21 02/02/17 16:21 02/02/17 16:21 02/02/17 16:21 - Medications Medications: Current Medications Clopidogrel Bisulfate (Plavix) 75 mg PO DAILY [facility] Last Admin: 02/02/17 09:15 Dose: 75 mg Enalapril Maleate (Vasotec) 20 mg PO DAILY [facility] Last Admin: 02/02/17 09:15 Dose: 20 mg Enoxaparin Sodium (Lovenox) 40 mg SC DAILY [facility] Last Admin: 02/02/17 09:16 Dose: 40 mg Gabapentin (Neurontin) 300 mg PO DAILY [facility] Last Admin: 02/02/17 09:16 Dose: 300 mg Hydralazine HCl (Apresoline) 50 mg PO Q8 [facility] Last Admin: 02/02/17 21:15 Dose: 50 mg Insulin Aspart (Novolog) 0 unit SC [facility] PRN Reason: Protocol Last Admin: 02/02/17 21:55 Dose: Not Given Metoprolol Succinate (Toprol Xl) 100 mg PO DAILY [facility] Last Admin: 02/02/17 11:34 Dose: 100 mg Ondansetron HCl (Zofran Inj) 4 mg IVP DAILY@ONCE PRN PRN Reason: Nausea/Vomiting Last Admin: 02/02/17 11:30 Dose: 4 mg Pneumococcal Polyvalent Vaccine (Pneumovax 23 Vaccine) 0.5 ml IM .ONCE ONE Stop: 02/05/17 10:01 Prochlorperazine (Compazine Rectal Supp) 25 mg [place] Q12H PRN PRN Reason: NAUSEA/VOMITTING Last Admin: 02/02/17 08:26 Dose: 25 mg Rosuvastatin Calcium (Crestor) 20 mg PO HS [facility] Last Admin: 02/02/17 21:14 Dose: 20 mg Sitagliptin Phosphate (Januvia) 25 mg PO DAILY [facility] Last Admin: 02/02/17 09:16 Dose: 25 mg - Labs Labs: PT 11.4 SECONDS (9.7-12.2) 02/01/17 14:02 INR 1.0 02/01/17 14:02 APTT 48 SECONDS (21-34) H 02/01/17 14:02 - Constitutional Appears: Non-toxic, No Acute Distress - Head Exam Head Exam: ATRAUMATIC, NORMAL INSPECTION, NORMOCEPHALIC - Eye Exam Eye Exam: EOMI, Normal appearance, PERRL Pupil Exam: NORMAL ACCOMODATION - ENT Exam ENT Exam: Mucous Membranes Moist, Normal Exam, Normal Oropharynx, TM's Normal Bilaterally - Neck Exam Neck Exam: Normal Inspection - Respiratory Exam Respiratory Exam: Clear to Ausculation Bilateral, NORMAL BREATHING PATTERN - Cardiovascular Exam Cardiovascular Exam: REGULAR RHYTHM, +S1, +S2 - GI/Abdominal Exam GI & Abdominal Exam: Soft, Normal Bowel Sounds - Rectal Exam Rectal Exam: NORMAL INSPECTION - Extremities Exam Extremities Exam: Normal Capillary Refill, Normal Inspection, Pedal Edema - Neurological Exam Neurological Exam: Abnormal Gait, Alert, Awake, CN II-XII Intact, Oriented x3 Neuro motor strength exam: Left Upper Extremity: 5, Right Upper Extremity: 5, Left Lower Extremity: 5, Right Lower Extremity: 5 - Psychiatric Exam Psychiatric exam: Anxious, Flat Affect Assessment and Plan (1) Diabetes mellitus Status: Chronic (2) Mobitz type II block Assessment & Plan: AWAIT CARDIOLOGY Status: Acute (3) HTN (hypertension) Status: Chronic
[2017-02-03] MEDS: (Novolog) Insulin Aspart, Recombinant 100 u/ml 10 ml vial SC SCH ×4 (08:03→21:56)
[2017-02-03] MEDS: Enoxaparin 40 mg Syringe SC SCH (09:45)
[2017-02-03] MEDS: Metoprolol Succinate 100 mg XL Tab PO SCH (09:46)
--- NOTE | 2017-02-03 21:21 | PN ---
DATE: 02/03/2017 NEUROLOGIC PROBLEMS: Transient ischemic attack affecting her speech. The patient is disabled for more than 48 hours. Her speech is normal. There is no further neurological findings or symptoms. Examination is unchanged when compared with the previous exam, continue the present management. From neurological point of view, no further workup is needed. If change in neuro status, please do not hesitate to contact me for further followup evaluation. Homer Manuel MD
--- NOTE | 2017-02-03 21:31 | CP.PCM.PN ---
Subjective - Date & Time of Evaluation Date of Evaluation: 02/03/17 Time of Evaluation: 21:31 - Subjective Subjective: feeling fine episodes of dropped beat noted on telemetry HR and BP stable on plavix Objective - Vital Signs/Intake and Output Vital Signs (last 24 hours): Temp Pulse Resp BP Pulse Ox 99.9 F H 112 H 20 169/82 H 100 02/03/17 15:01 02/03/17 15:35 02/03/17 15:01 02/03/17 15:01 02/03/17 15:01 - Medications Medications: Current Medications Clopidogrel Bisulfate (Plavix) 75 mg PO DAILY [facility] Last Admin: 02/03/17 09:46 Dose: 75 mg Enalapril Maleate (Vasotec) 20 mg PO DAILY [facility] Last Admin: 02/03/17 09:45 Dose: 20 mg Enoxaparin Sodium (Lovenox) 40 mg SC DAILY [facility] Last Admin: 02/03/17 09:45 Dose: 40 mg Gabapentin (Neurontin) 300 mg PO DAILY [facility] Last Admin: 02/03/17 09:46 Dose: 300 mg Hydralazine HCl (Apresoline) 50 mg PO Q8 [facility] Last Admin: 02/03/17 21:25 Dose: 50 mg Insulin Aspart (Novolog) 0 unit SC [facility] PRN Reason: Protocol Last Admin: 02/03/17 18:02 Dose: 2 unit Metoprolol Succinate (Toprol Xl) 100 mg PO DAILY [facility] Last Admin: 02/03/17 09:46 Dose: 100 mg Ondansetron HCl (Zofran Inj) 4 mg IVP DAILY@ONCE PRN PRN Reason: Nausea/Vomiting Last Admin: 02/02/17 11:30 Dose: 4 mg Pneumococcal Polyvalent Vaccine (Pneumovax 23 Vaccine) 0.5 ml IM .ONCE ONE Stop: 02/05/17 10:01 Prochlorperazine (Compazine Rectal Supp) 25 mg [place] Q12H PRN PRN Reason: NAUSEA/VOMITTING Last Admin: 02/02/17 08:26 Dose: 25 mg Rosuvastatin Calcium (Crestor) 20 mg PO HS [facility] Last Admin: 02/03/17 21:25 Dose: 20 mg Sitagliptin Phosphate (Januvia) 25 mg PO DAILY [facility] Last Admin: 02/03/17 09:46 Dose: 25 mg - Labs Labs: PT 11.4 SECONDS (9.7-12.2) 02/01/17 14:02 INR 1.0 02/01/17 14:02 APTT 48 SECONDS (21-34) H 02/01/17 14:02 - Constitutional Appears: Well - Head Exam Head Exam: ATRAUMATIC, NORMAL INSPECTION, NORMOCEPHALIC - Eye Exam Eye Exam: EOMI, Normal appearance, PERRL Pupil Exam: NORMAL ACCOMODATION, PERRL - ENT Exam ENT Exam: Mucous Membranes Moist, Normal Exam - Neck Exam Neck Exam: Full ROM, Normal Inspection. absent: Lymphadenopathy - Respiratory Exam Respiratory Exam: Clear to Ausculation Bilateral, NORMAL BREATHING PATTERN - Cardiovascular Exam Cardiovascular Exam: Irregular Rhythm, RRR, +S1, +S2, Murmur - GI/Abdominal Exam GI & Abdominal Exam: Soft, Normal Bowel Sounds. absent: Tenderness - Rectal Exam Rectal Exam: NORMAL INSPECTION - Extremities Exam Extremities Exam: Full ROM, Normal Capillary Refill, Normal Inspection. absent : Joint Swelling, Pedal Edema - Back Exam Back Exam: NORMAL INSPECTION - Neurological Exam Neurological Exam: Alert, Awake, CN II-XII Intact, Oriented x3 - Psychiatric Exam Psychiatric exam: Normal Affect, Normal Mood - Skin Skin Exam: Dry, Intact, Normal Color, Warm Assessment and Plan (1) Mobitz type II block Assessment & Plan: continue to monitor etiology ? 2' to AV delbert disease hold AV blockers for now Status: Acute (2) Aortic stenosis Assessment & Plan: w/u with BLANKA/Cath Status: Acute (3) TIA (transient ischemic attack) Assessment & Plan: neuro on board switched to plavix Status: Acute (4) HTN (hypertension) Assessment & Plan: cont with enalapril, hydralazine decrease BB 2' to AV block monitor Status: Chronic
--- NOTE | 2017-02-03 22:45 | CP.PCM.PN ---
Subjective - Date & Time of Evaluation Date of Evaluation: 02/03/17 Time of Evaluation: 11:20 - Subjective Subjective: MORE LAERT , SEEN BY CARDIOLOGY, NO FEVER, MRI - Objective - Vital Signs/Intake and Output Vital Signs (last 24 hours): Temp Pulse Resp BP Pulse Ox 99.9 F H 112 H 20 169/82 H 100 02/03/17 15:01 02/03/17 15:35 02/03/17 15:01 02/03/17 15:01 02/03/17 15:01 - Medications Medications: Current Medications Clopidogrel Bisulfate (Plavix) 75 mg PO DAILY [facility] Last Admin: 02/03/17 09:46 Dose: 75 mg Enalapril Maleate (Vasotec) 20 mg PO DAILY [facility] Last Admin: 02/03/17 09:45 Dose: 20 mg Enoxaparin Sodium (Lovenox) 40 mg SC DAILY [facility] Last Admin: 02/03/17 09:45 Dose: 40 mg Gabapentin (Neurontin) 300 mg PO DAILY [facility] Last Admin: 02/03/17 09:46 Dose: 300 mg Hydralazine HCl (Apresoline) 50 mg PO Q8 [facility] Last Admin: 02/03/17 21:25 Dose: 50 mg Insulin Aspart (Novolog) 0 unit SC [facility] PRN Reason: Protocol Last Admin: 02/03/17 21:56 Dose: Not Given Metoprolol Succinate (Toprol Xl) 100 mg PO DAILY [facility] Last Admin: 02/03/17 09:46 Dose: 100 mg Ondansetron HCl (Zofran Inj) 4 mg IVP DAILY@ONCE PRN PRN Reason: Nausea/Vomiting Last Admin: 02/02/17 11:30 Dose: 4 mg Pneumococcal Polyvalent Vaccine (Pneumovax 23 Vaccine) 0.5 ml IM .ONCE ONE Stop: 02/05/17 10:01 Prochlorperazine (Compazine Rectal Supp) 25 mg [place] Q12H PRN PRN Reason: NAUSEA/VOMITTING Last Admin: 02/02/17 08:26 Dose: 25 mg Rosuvastatin Calcium (Crestor) 20 mg PO HS [facility] Last Admin: 02/03/17 21:25 Dose: 20 mg Sitagliptin Phosphate (Januvia) 25 mg PO DAILY [facility] Last Admin: 02/03/17 09:46 Dose: 25 mg - Labs Labs: PT 11.4 SECONDS (9.7-12.2) 02/01/17 14:02 INR 1.0 02/01/17 14:02 APTT 48 SECONDS (21-34) H 02/01/17 14:02 - Constitutional Appears: Non-toxic, No Acute Distress - Head Exam Head Exam: ATRAUMATIC, NORMAL INSPECTION, NORMOCEPHALIC - Eye Exam Eye Exam: EOMI, Normal appearance, PERRL Pupil Exam: NORMAL ACCOMODATION - ENT Exam ENT Exam: Mucous Membranes Moist, Normal Exam, Normal Oropharynx, TM's Normal Bilaterally - Neck Exam Neck Exam: Normal Inspection - Respiratory Exam Respiratory Exam: Clear to Ausculation Bilateral, NORMAL BREATHING PATTERN - Cardiovascular Exam Cardiovascular Exam: REGULAR RHYTHM, +S1, +S2, Murmur - GI/Abdominal Exam GI & Abdominal Exam: Soft, Normal Bowel Sounds - Rectal Exam Rectal Exam: NORMAL INSPECTION - Extremities Exam Extremities Exam: Normal Capillary Refill, Normal Inspection, Pedal Edema - Neurological Exam Neurological Exam: Abnormal Gait, Alert, Awake, CN II-XII Intact, Oriented x3 Neuro motor strength exam: Left Upper Extremity: 5, Right Upper Extremity: 5, Left Lower Extremity: 5, Right Lower Extremity: 5 - Psychiatric Exam Psychiatric exam: Flat Affect - Skin Skin Exam: Intact Assessment and Plan (1) Diabetes mellitus Status: Chronic (2) Mobitz type II block Status: Acute (3) HTN (hypertension) Status: Chronic
[2017-02-04] MEDS: (Novolog) Insulin Aspart, Recombinant 100 u/ml 10 ml vial SC SCH ×4 (08:25→23:00)
[2017-02-04] MEDS: Enoxaparin 40 mg Syringe SC SCH (09:32)
[2017-02-04] MEDS: Metoprolol Succinate 100 mg XL Tab PO SCH (09:33)
--- NOTE | 2017-02-04 12:25 | CP.PCM.PN ---
Subjective - Date & Time of Evaluation Date of Evaluation: 02/04/17 Time of Evaluation: 12:25 - Subjective Subjective: laying in bed denies any complaints echo done in 01/07 Objective - Vital Signs/Intake and Output Vital Signs (last 24 hours): Temp Pulse Resp BP Pulse Ox 98.0 F 114 H 20 136/58 L 96 02/04/17 08:37 02/04/17 08:37 02/04/17 08:37 02/04/17 09:33 02/04/17 08:37 - Medications Medications: Current Medications Clopidogrel Bisulfate (Plavix) 75 mg PO DAILY [facility] Last Admin: 02/04/17 09:33 Dose: 75 mg Enalapril Maleate (Vasotec) 20 mg PO DAILY [facility] Last Admin: 02/04/17 09:33 Dose: 20 mg Enoxaparin Sodium (Lovenox) 40 mg SC DAILY [facility] Last Admin: 02/04/17 09:32 Dose: 40 mg Gabapentin (Neurontin) 300 mg PO DAILY [facility] Last Admin: 02/04/17 09:33 Dose: 300 mg Hydralazine HCl (Apresoline) 50 mg PO Q8 [facility] Last Admin: 02/04/17 06:30 Dose: 50 mg Insulin Aspart (Novolog) 0 unit SC [facility] PRN Reason: Protocol Last Admin: 02/04/17 08:25 Dose: 1 unit Metoprolol Succinate (Toprol Xl) 100 mg PO DAILY [facility] Last Admin: 02/04/17 09:33 Dose: 100 mg Ondansetron HCl (Zofran Inj) 4 mg IVP DAILY@ONCE PRN PRN Reason: Nausea/Vomiting Last Admin: 02/04/17 03:38 Dose: 4 mg Pneumococcal Polyvalent Vaccine (Pneumovax 23 Vaccine) 0.5 ml IM .ONCE ONE Stop: 02/05/17 10:01 Prochlorperazine (Compazine Rectal Supp) 25 mg [place] Q12H PRN PRN Reason: NAUSEA/VOMITTING Last Admin: 02/02/17 08:26 Dose: 25 mg Rosuvastatin Calcium (Crestor) 20 mg PO HS [facility] Last Admin: 02/03/17 21:25 Dose: 20 mg Sitagliptin Phosphate (Januvia) 25 mg PO DAILY [facility] Last Admin: 02/04/17 09:33 Dose: 25 mg - Labs Labs: PT 11.4 SECONDS (9.7-12.2) 02/01/17 14:02 INR 1.0 02/01/17 14:02 APTT 48 SECONDS (21-34) H 02/01/17 14:02 - Constitutional Appears: Well - Head Exam Head Exam: ATRAUMATIC, NORMAL INSPECTION, NORMOCEPHALIC - Eye Exam Eye Exam: EOMI, Normal appearance, PERRL Pupil Exam: NORMAL ACCOMODATION, PERRL - ENT Exam ENT Exam: Mucous Membranes Moist, Normal Exam - Neck Exam Neck Exam: Full ROM, Normal Inspection. absent: Lymphadenopathy - Respiratory Exam Respiratory Exam: Clear to Ausculation Bilateral, NORMAL BREATHING PATTERN - Cardiovascular Exam Cardiovascular Exam: REGULAR RHYTHM, RRR, +S1, +S2, Murmur - GI/Abdominal Exam GI & Abdominal Exam: Soft, Normal Bowel Sounds. absent: Tenderness - Rectal Exam Rectal Exam: NORMAL INSPECTION - Extremities Exam Extremities Exam: Full ROM, Normal Capillary Refill, Normal Inspection. absent : Joint Swelling, Pedal Edema - Back Exam Back Exam: NORMAL INSPECTION - Neurological Exam Neurological Exam: Alert, Awake, CN II-XII Intact, Oriented x3 - Psychiatric Exam Psychiatric exam: Normal Affect, Normal Mood - Skin Skin Exam: Dry, Intact, Normal Color, Warm Assessment and Plan (1) Mobitz type II block Assessment & Plan: EP evaluation - telemetry decrease BB Status: Acute (2) Aortic stenosis Assessment & Plan: w/u with BLANKA/Cath for con plavix, crestor Status: Acute (3) TIA (transient ischemic attack) Assessment & Plan: switched to plavix Status: Acute (4) HTN (hypertension) Assessment & Plan: cont enalapril , hydralazine decrease metoprolol Status: Chronic
--- NOTE | 2017-02-04 12:57 | CP.PCM.CON ---
History of Present Illness - History of Present Illness History of Present Illness: severe as will call interventional for tx no ep issues d/w daughter Review of Systems - Review of Systems Systems not reviewed;Unavailable: Acuity of Condition - Constitutional Constitutional: Fatigue - EENT Eyes: absent: Change in Vision Ears: absent: Tinnitus - Cardiovascular Cardiovascular: absent: Dyspnea - Gastrointestinal Gastrointestinal: absent: Bloating - Genitourinary Genitourinary: absent: Dysuria - Musculoskeletal Musculoskeletal: absent: Arthralgias - Integumentary Integumentary: Change in Hair Past Patient History - Past Social History Smoking Status: Never Smoked - CARDIAC Hx Hypertension: Yes - NEUROLOGICAL Hx Dementia: Yes - HEENT Hx Cataracts: Yes (right surgery 3yrs ago) - RENAL Hx Chronic Kidney Disease: No - ENDOCRINE/METABOLIC Hx Diabetes Mellitus Type 2: Yes - HEMATOLOGICAL/ONCOLOGICAL Hx Blood Disorders: No - INTEGUMENTARY Hx Dermatological Problems: No - MUSCULOSKELETAL/RHEUMATOLOGICAL Hx Falls: No - GASTROINTESTINAL Hx Gastrointestinal Disorders: No - GENITOURINARY/GYNECOLOGICAL Hx Incontinence: Yes - PSYCHIATRIC Hx Substance Use: No - SURGICAL HISTORY Hx Coronary Stent: Yes - ANESTHESIA Hx Anesthesia: Yes Hx Anesthesia Reactions: No Hx Malignant Hyperthermia: No Meds Allergies/Adverse Reactions: Allergies Allergy/AdvReac Type Severity Reaction Status Date / Time latex Allergy ITCHING Verified 02/02/17 01:17 shrimp Allergy ITCHING Verified 02/01/17 13:06 shellfish Allergy ITCHING Uncoded 02/02/17 01:18 - Medications Medications: Current Medications Acetaminophen (Tylenol 325mg Tab) 650 mg PO Q6 PRN PRN Reason: Headache Clopidogrel Bisulfate (Plavix) 75 mg PO DAILY [facility] Last Admin: 02/04/17 09:33 Dose: 75 mg Enalapril Maleate (Vasotec) 20 mg PO DAILY [facility] Last Admin: 02/04/17 09:33 Dose: 20 mg Enoxaparin Sodium (Lovenox) 40 mg SC DAILY [facility] Last Admin: 02/04/17 09:32 Dose: 40 mg Gabapentin (Neurontin) 300 mg PO DAILY [facility] Last Admin: 02/04/17 09:33 Dose: 300 mg Hydralazine HCl (Apresoline) 50 mg PO Q8 [facility] Last Admin: 02/04/17 06:30 Dose: 50 mg Insulin Aspart (Novolog) 0 unit SC [facility] PRN Reason: Protocol Last Admin: 02/04/17 12:15 Dose: 1 unit Metoprolol Succinate (Toprol Xl) 50 mg PO DAILY [facility] Ondansetron HCl (Zofran Inj) 4 mg IVP DAILY@ONCE PRN PRN Reason: Nausea/Vomiting Last Admin: 02/04/17 03:38 Dose: 4 mg Pneumococcal Polyvalent Vaccine (Pneumovax 23 Vaccine) 0.5 ml IM .ONCE ONE Stop: 02/05/17 10:01 Prochlorperazine (Compazine Rectal Supp) 25 mg [place] Q12H PRN PRN Reason: NAUSEA/VOMITTING Last Admin: 02/02/17 08:26 Dose: 25 mg Rosuvastatin Calcium (Crestor) 20 mg PO HS [facility] Last Admin: 02/03/17 21:25 Dose: 20 mg Sitagliptin Phosphate (Januvia) 25 mg PO DAILY [facility] Last Admin: 02/04/17 09:33 Dose: 25 mg Physical Exam - Constitutional Appears: No Acute Distress - Head Exam Head Exam: ATRAUMATIC - Eye Exam Eye Exam: Normal appearance - ENT Exam ENT Exam: Mucous Membranes Moist - Respiratory Exam Respiratory Exam: Clear to Auscultation Bilateral - Cardiovascular Exam Cardiovascular Exam: Systolic Murmur - GI/Abdominal Exam GI & Abdominal Exam: Normal Bowel Sounds - Exam External exam: NORMAL EXTERNAL EXAM - Extremities Exam Extremities exam: Positive for: normal inspection Results - Vital Signs Recent Vital Signs: Last Vital Signs Temp 98.0 F 02/04/17 08:37 Pulse 114 H 02/04/17 08:37 Resp 20 02/04/17 08:37 BP 136/58 L 02/04/17 09:33 Pulse Ox 96 02/04/17 08:37 - Labs Result Diagrams: 02/06/17 08:52 02/06/17 08:52 Labs: Laboratory Results - last 24 hr 02/03/17 02/03/17 02/04/17 16:28 21:12 06:16 POC Glucose (mg/dL) 206 H 227 H 284 H 02/04/17 11:37 POC Glucose (mg/dL) 196 H Assessment & Plan (1) Aortic stenosis Assessment and Plan: TAVR candidate Status: Acute
--- NOTE | 2017-02-04 16:59 | RAD ---
HISTORY: fever COMPARISON: 02/01/2017 FINDINGS: LUNGS: The examination is somewhat limited due to oblique positioning of the patient. There is right perihilar opacity new since the prior examination. PLEURA: No significant pleural effusion identified, no pneumothorax apparent. CARDIOVASCULAR: Normal heart size. Mitral annular calcification. OSSEOUS STRUCTURES: No significant abnormalities. VISUALIZED UPPER ABDOMEN: Normal. OTHER FINDINGS: None. IMPRESSION: New right perihilar opacity, possible pneumonia. Limited examination.
[2017-02-04] MEDS ORDERED: Iohexol 240 (50 ml) PO ONE (17:00)
[2017-02-04 19:16] LABS: CALCIUM 8.3 mg/dl (8.6-10.4); POTASSIUM 4.1 mmol/L (3.6-5.2)
[2017-02-04] MEDS: Lactobacillus Acidophilus 500 MU Cap PO SCH (19:30)
[2017-02-04] MEDS: cefTRIAXone IV 1 gm in Dextros 50 ML IVPB SCH (20:00)
--- NOTE | 2017-02-04 20:30 | CT ---
EXAM: CT Abdomen and Pelvis Without Intravenous Contrast EXAM DATE/TIME: Exam ordered 02/04/2017 12:49 PM CLINICAL HISTORY: 81 years old, female; Pain; Abdominal pain; Localized; Right lower quadrant (rlq); Additional info: Rlq pain TECHNIQUE: Axial computed tomography images of the abdomen and pelvis without intravenous contrast. All CT scans at this facility use one or more dose reduction techniques, viz.: automated exposure control; ma/kV adjustment per patient size (including targeted exams where dose is matched to indication; i.e. head); or iterative reconstruction technique. Coronal and sagittal reformatted images were created and reviewed. COMPARISON: No relevant prior studies available. FINDINGS: Lower thorax: Small pleural effusions are seen bilaterally. Mitral valvular calcification is noted. There is enlargement of the left atrium. Discoid atelectasis is noted bibasally. ABDOMEN: Liver: Unremarkable. Gallbladder and bile ducts: Layering hyperdensity within the dependent portion of the gallbladder suggests either milk of calcium or tiny gallstones. No ductal dilation. Pancreas: Unremarkable. No ductal dilation. Spleen: Unremarkable. No splenomegaly. Adrenals: Unremarkable. No mass. Kidneys and ureters: Unremarkable. No obstructing stones. No hydronephrosis. Stomach and bowel: There is a Jaimes's hernia containing small bowel in the right groin. No obstruction. No mucosal thickening. Appendix: Motion artifact degrades images of the right lower quadrant. The appendix is not seen as a separate structure. PELVIS: Small bilateral pleural effusions with Bladder: Unremarkable. No stones. Reproductive: There are scattered calcifications noted within the uterus are present. They appear predominantly vascular. Small calcified uterine fibroid is suggested at the fundus. ABDOMEN and PELVIS: Intraperitoneal space: Unremarkable. No free air. No significant fluid collection. Bones/joints: The moderately advanced degenerative disc disease is noted throughout the visualized thoracolumbar spine. There is a levoscoliosis of the thoracolumbar spine. No acute fracture. No dislocation. Soft tissues: There is a moderate size umbilical hernia containing fat. Patchy hazy densities noted in the subcutaneous fat of the anterior abdominal wall which may be related to injections. Vasculature: Unremarkable. No abdominal aortic aneurysm. Lymph nodes: Unremarkable. No enlarged lymph nodes. IMPRESSION: 1. Jaimes's hernia in the right groin containing a knuckle of small bowel. No findings to suggest strangulation. 2. Images of the right lower quadrant at the level of appendix are markedly degraded by motion artifact. The appendix is not seen as a separate structure. 3. Gallstones and milk of calcium bile 4. Moderate size umbilical hernia containing fat. 5. Calcified uterine fibroid. 6. Small bilateral pleural effusions discoid atelectasis bibasally
--- NOTE | 2017-02-04 20:55 | CARD ---
APPROVED REPORT EKG Measurement Heart [id number] <Conclusion> atrial fibrillation Nonspecific T wave abnormality Abnormal ECG
--- NOTE | 2017-02-04 23:10 | CP.PCM.PN ---
Subjective - Date & Time of Evaluation Date of Evaluation: 02/04/17 Time of Evaluation: 11:26 - Subjective Subjective: FEVER TODAY, SHE DENIES COUGH, NO LOOSE BM, NO CHEST PAIN Objective - Vital Signs/Intake and Output Vital Signs (last 24 hours): Temp Pulse Resp BP Pulse Ox 99.1 F 112 H 20 150/72 99 02/04/17 18:57 02/04/17 15:00 02/04/17 15:00 02/04/17 15:00 02/04/17 15:00 - Medications Medications: Current Medications Acetaminophen (Tylenol 325mg Tab) 650 mg PO Q6 PRN PRN Reason: Headache Last Admin: 02/04/17 15:41 Dose: 650 mg Acetaminophen (Tylenol 325mg Tab) 650 mg PO Q6 PRN PRN Reason: Fever >100.4 F Clopidogrel Bisulfate (Plavix) 75 mg PO DAILY [facility] Last Admin: 02/04/17 09:33 Dose: 75 mg Enalapril Maleate (Vasotec) 20 mg PO DAILY [facility] Last Admin: 02/04/17 09:33 Dose: 20 mg Gabapentin (Neurontin) 300 mg PO DAILY [facility] Last Admin: 02/04/17 09:33 Dose: 300 mg Heparin Sodium (Porcine) (Heparin) 5,000 units SC Q12 [facility] Hydralazine HCl (Apresoline) 50 mg PO Q8 [facility] Last Admin: 02/04/17 13:24 Dose: 50 mg Ceftriaxone Sodium (Rocephin Iv 1 Gm Duplex) 50 mls @ 100 mls/hr IVPB DAILY [facility] Last Admin: 02/04/17 20:00 Dose: 100 mls/hr Insulin Aspart (Novolog) 0 unit SC ACHS [facility] PRN Reason: Protocol Last Admin: 02/04/17 17:50 Dose: 3 unit Lactobacillus Acidophilus (Bacid Acidophilus) 1 cap PO BID [facility] Metoprolol Succinate (Toprol Xl) 50 mg PO DAILY [facility] Metronidazole (Flagyl) 500 mg PO Q8 [facility] Ondansetron HCl (Zofran Inj) 4 mg IVP DAILY@ONCE PRN PRN Reason: Nausea/Vomiting Last Admin: 02/04/17 03:38 Dose: 4 mg Pneumococcal Polyvalent Vaccine (Pneumovax 23 Vaccine) 0.5 ml IM .ONCE ONE Stop: 02/05/17 10:01 Prochlorperazine (Compazine Rectal Supp) 25 mg [place] Q12H PRN PRN Reason: NAUSEA/VOMITTING Last Admin: 02/02/17 08:26 Dose: 25 mg Rosuvastatin Calcium (Crestor) 20 mg PO HS [facility] Last Admin: 02/03/17 21:25 Dose: 20 mg Sitagliptin Phosphate (Januvia) 25 mg PO DAILY [facility] Last Admin: 02/04/17 09:33 Dose: 25 mg - Labs Labs: 02/04/17 18:40 PT 11.4 SECONDS (9.7-12.2) 02/01/17 14:02 INR 1.0 02/01/17 14:02 APTT 48 SECONDS (21-34) H 02/01/17 14:02 - Constitutional Appears: Non-toxic, No Acute Distress, Chronically Ill - Head Exam Head Exam: ATRAUMATIC, NORMAL INSPECTION, NORMOCEPHALIC - Eye Exam Eye Exam: EOMI, Normal appearance, PERRL Pupil Exam: NORMAL ACCOMODATION - ENT Exam ENT Exam: Mucous Membranes Moist, Normal Exam, Normal Oropharynx, TM's Normal Bilaterally - Neck Exam Neck Exam: Normal Inspection - Respiratory Exam Respiratory Exam: Clear to Ausculation Bilateral, NORMAL BREATHING PATTERN - Cardiovascular Exam Cardiovascular Exam: REGULAR RHYTHM, +S1, +S2, Murmur - GI/Abdominal Exam GI & Abdominal Exam: Soft, Normal Bowel Sounds - Rectal Exam Rectal Exam: NORMAL INSPECTION - Extremities Exam Extremities Exam: Normal Capillary Refill, Normal Inspection, Pedal Edema - Neurological Exam Neurological Exam: Abnormal Gait, Alert, Awake, CN II-XII Intact, Oriented x3 Neuro motor strength exam: Left Upper Extremity: 5, Right Upper Extremity: 5, Left Lower Extremity: 5, Right Lower Extremity: 5 - Psychiatric Exam Psychiatric exam: Flat Affect - Skin Skin Exam: Intact Assessment and Plan (1) Diabetes mellitus Status: Chronic (2) Mobitz type II block Status: Acute (3) HTN (hypertension) Status: Chronic (4) Fever Assessment & Plan: ROCEPHIN, BLOOD C/S Status: Acute
[2017-02-05] MEDS ORDERED: Albuterol-Ipratrop 3 mg / 0.5 (3 ml) UD INH STA (01:54)
[2017-02-05] MEDS: (Novolog) Insulin Aspart, Recombinant 100 u/ml 10 ml vial SC SCH ×4 (08:29→22:18)
[2017-02-05] MEDS ORDERED: Midazolam 2 MG/2 ML VIAL ONE ×2 (08:52→09:06)
[2017-02-05] MEDS ORDERED: DiphenhydrAMINE 50 mg/ml Inj ONE (08:54)
[2017-02-05] MEDS ORDERED: Lidocaine 4% (Laryng-O-Jet) Kit MM ONE (08:56)
[2017-02-05] MEDS ORDERED: Pneumococcal 23-Valent Vaccine IM ONE (10:00)
[2017-02-05] MEDS: Metoprolol Succinate 50 mg XL Tab PO SCH (11:35)
[2017-02-05] MEDS: cefTRIAXone IV 1 gm in Dextros 50 ML IVPB SCH (12:14)
[2017-02-05] MEDS: Lactobacillus Acidophilus 500 MU Cap PO SCH ×2 (12:28→19:00)
[2017-02-05 16:06] VITALS: RESP 20
--- NOTE | 2017-02-05 18:03 | CP.PCM.PN ---
<LIDIA MCKEON - Last Filed: 02/05/17 17:59> Subjective - Date & Time of Evaluation Date of Evaluation: 02/05/17 Time of Evaluation: 17:59 - Subjective Subjective: Lidia Mckeon, PGY1, Progress Note for Dr. Maria: Pt seen and examined at bedside. No acute events overnight. Pt awake, but sleepy , daughter at bedside, denies cp, sob. Objective - Vital Signs/Intake and Output Vital Signs (last 24 hours): Temp Pulse Resp BP Pulse Ox 98.4 F 111 H 20 114/70 100 02/05/17 15:08 02/05/17 15:08 02/05/17 15:08 02/05/17 15:08 02/05/17 15:08 Intake and Output: 02/05/17 02/05/17 06:59 18:59 Intake Total 410 200 Balance 410 200 - Medications Medications: Current Medications Acetaminophen (Tylenol 325mg Tab) 650 mg PO Q6 PRN PRN Reason: Headache Last Admin: 02/04/17 15:41 Dose: 650 mg Acetaminophen (Tylenol 325mg Tab) 650 mg PO Q6 PRN PRN Reason: Fever >100.4 F Clopidogrel Bisulfate (Plavix) 75 mg PO DAILY [facility] Last Admin: 02/05/17 12:13 Dose: 75 mg Enalapril Maleate (Vasotec) 20 mg PO DAILY [facility] Last Admin: 02/05/17 11:35 Dose: 20 mg Gabapentin (Neurontin) 300 mg PO DAILY [facility] Last Admin: 02/05/17 12:14 Dose: 300 mg Heparin Sodium (Porcine) (Heparin) 5,000 units SC Q12 [facility] Hydralazine HCl (Apresoline) 50 mg PO Q8 [facility] Last Admin: 02/05/17 13:48 Dose: 50 mg Ceftriaxone Sodium (Rocephin Iv 1 Gm Duplex) 50 mls @ 100 mls/hr IVPB DAILY [facility] Last Admin: 02/05/17 12:14 Dose: 100 mls/hr Insulin Aspart (Novolog) 0 unit SC ACHS [facility] PRN Reason: Protocol Last Admin: 02/05/17 12:15 Dose: 3 unit Lactobacillus Acidophilus (Bacid Acidophilus) 1 cap PO BID [facility] Last Admin: 02/05/17 12:28 Dose: 1 cap Metoprolol Succinate (Toprol Xl) 50 mg PO DAILY [facility] Last Admin: 02/05/17 11:35 Dose: 50 mg Metronidazole (Flagyl) 500 mg PO Q8 [facility] Last Admin: 02/05/17 13:48 Dose: 500 mg Ondansetron HCl (Zofran Inj) 4 mg IVP DAILY@ONCE PRN PRN Reason: Nausea/Vomiting Last Admin: 02/04/17 03:38 Dose: 4 mg Pneumococcal Polyvalent Vaccine (Pneumovax 23 Vaccine) 0.5 ml IM .ONCE ONE Stop: 02/06/17 10:01 Rosuvastatin Calcium (Crestor) 20 mg PO HS [facility] Last Admin: 02/04/17 23:00 Dose: 20 mg Sitagliptin Phosphate (Januvia) 25 mg PO DAILY [facility] Last Admin: 02/05/17 10:37 Dose: Not Given - Labs Labs: 02/04/17 18:40 PT 11.4 SECONDS (9.7-12.2) 02/01/17 14:02 INR 1.0 02/01/17 14:02 APTT 48 SECONDS (21-34) H 02/01/17 14:02 - Constitutional Appears: No Acute Distress - Head Exam Head Exam: ATRAUMATIC, NORMOCEPHALIC - Eye Exam Eye Exam: PERRL - ENT Exam ENT Exam: Mucous Membranes Moist - Respiratory Exam Respiratory Exam: Decreased Breath Sounds - Cardiovascular Exam Cardiovascular Exam: Murmur - GI/Abdominal Exam GI & Abdominal Exam: Soft, Normal Bowel Sounds. absent: Tenderness - Neurological Exam Neurological Exam: Awake - Skin Skin Exam: Dry, Warm Assessment and Plan - Assessment and Plan (Free Text) Assessment: 81F PMH severe aortic stenosis (RUPESH 0.7 cm2), HTN, HLD, DM2, dementia, presents for uncontrolled HTN and slurring of speech at [facility]. Incidentally, pt was also found to have Mobtiz type II block. Cardiology (Dr. Maria) consulted for pacemaker evaluation for heart block. Pt underwent BLANKA with Dr Morfin this AM, awaiting results; could not undergo cardiac cath due to worsening renal function. Referred to Dr. Cordero for possible transfer for TAVR and pacemaker placement simultaneously, at [facility] or other available facility. Plan: Mobitz Type II block: - PT initially came in for slurred speech and high BP. - Incidentally found to have type II mobitz heart block. - EKG 02/01 shows HR 78, afib, - EKG 02/03 shows HR 111, afib - 2D Echo 02/04 and BLANKA 02/05 done, results pending. - May need pacemaker, but pt already planning to undergo surgery for TAVR likely at [facility] or other nearby facility, may do PPM over there. - Decreased Metoprolol to 50 mg PO q8 Aortic Stenosis: - RUPESH 0.7 cm2, peak transaortic gradients 70-80 mmHg, - F/u results of 2d echo and BLANKA with Dr Morfin. - c/w plavix, crestor - Consulted Dr. Cordero; f/u recs. - Likely to go for TAVR surgery at nearby facility. Awaiting acceptance into a facility. Dr. Cooper and [employer] on board. TIA: - Management per Neurology (Dr. Manuel). HTN: - c/w enalapril, hydralazine, metoprolol. Maintain normotensive BP. Discussed with Dr. Maria. <Alejandra Maria - Last Filed: 02/25/17 23:56> Objective - Vital Signs/Intake and Output Vital Signs (last 24 hours): Temp Pulse Resp BP Pulse Ox 98.4 F 114 H 20 184/91 H 95 02/06/17 16:00 02/06/17 16:00 02/06/17 16:00 02/06/17 16:00 02/06/17 16:00 - Labs Labs: 02/06/17 08:52 02/06/17 08:52 PT 11.4 SECONDS (9.7-12.2) 02/01/17 14:02 INR 1.0 02/01/17 14:02 APTT 48 SECONDS (21-34) H 02/01/17 14:02 Attending/Attestation - Attestation I have personally seen and examined this patient.: Yes I have fully participated in the care of the patient.: Yes I have reviewed all pertinent clinical information, including history, physical exam and plan: Yes Notes (Text): 02/25/17 23:56 will make arrangements for tavr
--- NOTE | 2017-02-05 23:20 | CP.PCM.PN ---
Subjective - Date & Time of Evaluation Date of Evaluation: 02/05/17 Time of Evaluation: 10:14 - Subjective Subjective: FOR TVR, SHE HAS [facility] LEMUS, AND D/W DR RUBY AND HE ACCEPTED PATIENT TO [facility], NO FEVER, NO LOOSE BM Objective - Vital Signs/Intake and Output Vital Signs (last 24 hours): Temp Pulse Resp BP Pulse Ox 98.7 F 98 H 20 160/86 H 100 02/05/17 22:28 02/05/17 22:28 02/05/17 22:28 02/05/17 22:28 02/05/17 22:28 Intake and Output: 02/05/17 02/06/17 18:59 06:59 Intake Total 200 Balance 200 - Medications Medications: Current Medications Acetaminophen (Tylenol 325mg Tab) 650 mg PO Q6 PRN PRN Reason: Headache Last Admin: 02/04/17 15:41 Dose: 650 mg Acetaminophen (Tylenol 325mg Tab) 650 mg PO Q6 PRN PRN Reason: Fever >100.4 F Clopidogrel Bisulfate (Plavix) 75 mg PO DAILY [facility] Last Admin: 02/05/17 12:13 Dose: 75 mg Enalapril Maleate (Vasotec) 20 mg PO DAILY [facility] Last Admin: 02/05/17 11:35 Dose: 20 mg Gabapentin (Neurontin) 300 mg PO DAILY [facility] Last Admin: 02/05/17 12:14 Dose: 300 mg Heparin Sodium (Porcine) (Heparin) 5,000 units [place] Q12 [facility] Last Admin: 02/05/17 22:17 Dose: 5,000 units Hydralazine HCl (Apresoline) 50 mg PO Q8 [facility] Last Admin: 02/05/17 22:16 Dose: 50 mg Ceftriaxone Sodium (Rocephin Iv 1 Gm Duplex) 50 mls @ 100 mls/hr IVPB DAILY [facility] Last Admin: 02/05/17 12:14 Dose: 100 mls/hr Insulin Aspart (Novolog) 0 unit SC ACHS [facility] PRN Reason: Protocol Last Admin: 02/05/17 22:18 Dose: Not Given Lactobacillus Acidophilus (Bacid Acidophilus) 1 cap PO BID [facility] Last Admin: 02/05/17 19:00 Dose: 1 cap Metoprolol Succinate (Toprol Xl) 50 mg PO DAILY [facility] Last Admin: 02/05/17 11:35 Dose: 50 mg Metronidazole (Flagyl) 500 mg PO Q8 [facility] Last Admin: 02/05/17 22:16 Dose: 500 mg Ondansetron HCl (Zofran Inj) 4 mg IVP DAILY@ONCE PRN PRN Reason: Nausea/Vomiting Last Admin: 02/04/17 03:38 Dose: 4 mg Pneumococcal Polyvalent Vaccine (Pneumovax 23 Vaccine) 0.5 ml IM .ONCE ONE Stop: 02/06/17 10:01 Rosuvastatin Calcium (Crestor) 20 mg PO HS [facility] Last Admin: 02/05/17 22:16 Dose: 20 mg Sitagliptin Phosphate (Januvia) 25 mg PO DAILY [facility] Last Admin: 02/05/17 10:37 Dose: Not Given - Labs Labs: 02/04/17 18:40 PT 11.4 SECONDS (9.7-12.2) 02/01/17 14:02 INR 1.0 02/01/17 14:02 APTT 48 SECONDS (21-34) H 02/01/17 14:02 - Constitutional Appears: Non-toxic, No Acute Distress, Confused - Head Exam Head Exam: ATRAUMATIC, NORMAL INSPECTION, NORMOCEPHALIC - Eye Exam Eye Exam: EOMI, Normal appearance Pupil Exam: NORMAL ACCOMODATION - ENT Exam ENT Exam: Mucous Membranes Moist, Normal Exam - Neck Exam Neck Exam: Full ROM, Normal Inspection - Respiratory Exam Respiratory Exam: Clear to Ausculation Bilateral, NORMAL BREATHING PATTERN - Cardiovascular Exam Cardiovascular Exam: Tachycardia, REGULAR RHYTHM, +S1, +S2, Murmur - GI/Abdominal Exam GI & Abdominal Exam: Soft, Normal Bowel Sounds - Rectal Exam Rectal Exam: NORMAL INSPECTION - Extremities Exam Extremities Exam: Full ROM, Normal Capillary Refill, Pedal Edema - Neurological Exam Neurological Exam: Abnormal Gait, Alert, Awake, CN II-XII Intact Neuro motor strength exam: Left Upper Extremity: 5, Right Upper Extremity: 5, Left Lower Extremity: 5, Right Lower Extremity: 5 - Psychiatric Exam Psychiatric exam: Anxious, Flat Affect - Skin Skin Exam: Dry Assessment and Plan (1) Diabetes mellitus Status: Chronic (2) Mobitz type II block Status: Acute (3) HTN (hypertension) Status: Chronic (4) Fever Status: Acute
--- NOTE | 2017-02-06 01:11 | CP.PCM.PN ---
Subjective - Date & Time of Evaluation Date of Evaluation: 02/05/17 Time of Evaluation: 09:30 - Subjective Subjective: no complaints overnight speech back to normal no cp or sob plan for BLANKA today Objective - Vital Signs/Intake and Output Vital Signs (last 24 hours): Temp Pulse Resp BP Pulse Ox 98.7 F 98 H 20 160/86 H 100 02/05/17 22:28 02/05/17 22:28 02/05/17 22:28 02/05/17 22:28 02/05/17 22:28 Intake and Output: 02/05/17 02/06/17 18:59 06:59 Intake Total 200 Balance 200 - Medications Medications: Current Medications Acetaminophen (Tylenol 325mg Tab) 650 mg PO Q6 PRN PRN Reason: Headache Last Admin: 02/04/17 15:41 Dose: 650 mg Acetaminophen (Tylenol 325mg Tab) 650 mg PO Q6 PRN PRN Reason: Fever >100.4 F Clopidogrel Bisulfate (Plavix) 75 mg PO DAILY [facility] Last Admin: 02/05/17 12:13 Dose: 75 mg Enalapril Maleate (Vasotec) 20 mg PO DAILY [facility] Last Admin: 02/05/17 11:35 Dose: 20 mg Gabapentin (Neurontin) 300 mg PO DAILY [facility] Last Admin: 02/05/17 12:14 Dose: 300 mg Heparin Sodium (Porcine) (Heparin) 5,000 units SC Q12 [facility] Last Admin: 02/05/17 22:17 Dose: 5,000 units Hydralazine HCl (Apresoline) 50 mg PO Q8 [facility] Last Admin: 02/05/17 22:16 Dose: 50 mg Ceftriaxone Sodium (Rocephin Iv 1 Gm Duplex) 50 mls @ 100 mls/hr IVPB DAILY [facility] Last Admin: 02/05/17 12:14 Dose: 100 mls/hr Insulin Aspart (Novolog) 0 unit SC ACHS [facility] PRN Reason: Protocol Last Admin: 02/05/17 22:18 Dose: Not Given Lactobacillus Acidophilus (Bacid Acidophilus) 1 cap PO BID [facility] Last Admin: 02/05/17 19:00 Dose: 1 cap Metoprolol Succinate (Toprol Xl) 50 mg PO DAILY [facility] Last Admin: 02/05/17 11:35 Dose: 50 mg Metronidazole (Flagyl) 500 mg PO Q8 [facility] Last Admin: 02/05/17 22:16 Dose: 500 mg Ondansetron HCl (Zofran Inj) 4 mg IVP DAILY@ONCE PRN PRN Reason: Nausea/Vomiting Last Admin: 02/04/17 03:38 Dose: 4 mg Pneumococcal Polyvalent Vaccine (Pneumovax 23 Vaccine) 0.5 ml IM .ONCE ONE Stop: 02/06/17 10:01 Rosuvastatin Calcium (Crestor) 20 mg PO HS [facility] Last Admin: 02/05/17 22:16 Dose: 20 mg Sitagliptin Phosphate (Januvia) 25 mg PO DAILY [facility] Last Admin: 02/05/17 10:37 Dose: Not Given - Labs Labs: 02/04/17 18:40 PT 11.4 SECONDS (9.7-12.2) 02/01/17 14:02 INR 1.0 02/01/17 14:02 APTT 48 SECONDS (21-34) H 02/01/17 14:02 - Constitutional Appears: Well - Head Exam Head Exam: ATRAUMATIC, NORMAL INSPECTION, NORMOCEPHALIC - Eye Exam Eye Exam: EOMI, Normal appearance, PERRL Pupil Exam: NORMAL ACCOMODATION, PERRL - ENT Exam ENT Exam: Mucous Membranes Moist, Normal Exam - Neck Exam Neck Exam: Full ROM, Normal Inspection. absent: Lymphadenopathy - Respiratory Exam Respiratory Exam: Clear to Ausculation Bilateral, NORMAL BREATHING PATTERN - Cardiovascular Exam Cardiovascular Exam: REGULAR RHYTHM, RRR, +S1, +S2, Murmur - GI/Abdominal Exam GI & Abdominal Exam: Soft, Normal Bowel Sounds. absent: Tenderness - Extremities Exam Extremities Exam: Full ROM, Normal Capillary Refill, Normal Inspection. absent : Joint Swelling, Pedal Edema - Back Exam Back Exam: NORMAL INSPECTION - Neurological Exam Neurological Exam: Alert, Awake, CN II-XII Intact, Oriented x3 - Psychiatric Exam Psychiatric exam: Normal Affect, Normal Mood - Skin Skin Exam: Dry, Intact, Normal Color, Warm Assessment and Plan (1) Mobitz type II block Assessment & Plan: improved etiology secondary to VHD stable Status: Acute (2) Aortic stenosis Assessment & Plan: BLANKA done today shows severe critical with RUPESH of 0.5 cm2 cath deferred due to elevated Cr of 2.6 Status: Acute (3) TIA (transient ischemic attack) Assessment & Plan: resolved cont with plavix Status: Acute (4) HTN (hypertension) Assessment & Plan: variable will titrate BP meds Status: Chronic
[2017-02-06] MEDS: (Novolog) Insulin Aspart, Recombinant 100 u/ml 10 ml vial SC SCH ×2 (08:30→12:05)
[2017-02-06 08:55] LABS: HEMATOCRIT 36.3 % (34.0-47.0); MEAN CELL VOLUME 78.3 fL (81.0-99.0); MEAN CORPUSCULAR HGB CONC 30.7 g/dL (33.0-37.0); MEAN PLATELET VOLUME 8.7 fL (7.2-11.7); RED CELL DISTRIBUTION WIDTH 18.9 % (11.5-14.5); WHITE BLOOD COUNT 6.5 K/uL (4.8-10.8)
[2017-02-06 09:03] LABS: POTASSIUM 5.1 mmol/L (3.6-5.2)
[2017-02-06 09:06] LABS: CALCIUM 8.9 mg/dl (8.6-10.4)
[2017-02-06 09:08] VITALS: TEMP 98.4
--- NOTE | 2017-02-06 09:49 | CP.PCM.PN ---
Subjective - Date & Time of Evaluation Date of Evaluation: 02/06/17 Time of Evaluation: 09:42 - Subjective Subjective: pt's daughter per and requested to have TAVR at [facility] clinically stable denies any chest pain or sob Objective - Vital Signs/Intake and Output Vital Signs (last 24 hours): Temp Pulse Resp BP Pulse Ox 98.4 F 110 H 20 117/79 99 02/06/17 07:00 02/06/17 07:00 02/06/17 07:00 02/06/17 07:00 02/06/17 07:00 Intake and Output: 02/06/17 02/06/17 06:59 18:59 Intake Total 320 Balance 320 - Medications Medications: Current Medications Acetaminophen (Tylenol 325mg Tab) 650 mg PO Q6 PRN PRN Reason: Headache Last Admin: 02/04/17 15:41 Dose: 650 mg Acetaminophen (Tylenol 325mg Tab) 650 mg PO Q6 PRN PRN Reason: Fever >100.4 F Clopidogrel Bisulfate (Plavix) 75 mg PO DAILY [facility] Last Admin: 02/05/17 12:13 Dose: 75 mg Enalapril Maleate (Vasotec) 20 mg PO DAILY [facility] Last Admin: 02/05/17 11:35 Dose: 20 mg Gabapentin (Neurontin) 300 mg PO DAILY [facility] Last Admin: 02/05/17 12:14 Dose: 300 mg Heparin Sodium (Porcine) (Heparin) 5,000 units SC Q12 [facility] Last Admin: 02/05/17 22:17 Dose: 5,000 units Hydralazine HCl (Apresoline) 50 mg PO Q8 [facility] Last Admin: 02/06/17 05:55 Dose: 50 mg Ceftriaxone Sodium (Rocephin Iv 1 Gm Duplex) 50 mls @ 100 mls/hr IVPB DAILY [facility] Last Admin: 02/05/17 12:14 Dose: 100 mls/hr Insulin Aspart (Novolog) 0 unit SC ACHS [facility] PRN Reason: Protocol Last Admin: 02/06/17 08:30 Dose: 2 unit Lactobacillus Acidophilus (Bacid Acidophilus) 1 cap PO BID [facility] Last Admin: 02/05/17 19:00 Dose: 1 cap Metoprolol Succinate (Toprol Xl) 50 mg PO DAILY [facility] Last Admin: 02/05/17 11:35 Dose: 50 mg Metronidazole (Flagyl) 500 mg PO Q8 [facility] Last Admin: 02/06/17 05:55 Dose: 500 mg Ondansetron HCl (Zofran Inj) 4 mg IVP DAILY@ONCE PRN PRN Reason: Nausea/Vomiting Last Admin: 02/04/17 03:38 Dose: 4 mg Pneumococcal Polyvalent Vaccine (Pneumovax 23 Vaccine) 0.5 ml IM .ONCE ONE Stop: 02/06/17 10:01 Rosuvastatin Calcium (Crestor) 20 mg PO HS [facility] Last Admin: 02/05/17 22:16 Dose: 20 mg Sitagliptin Phosphate (Januvia) 25 mg PO DAILY [facility] Last Admin: 02/05/17 10:37 Dose: Not Given - Labs Labs: 02/06/17 08:52 02/06/17 08:52 PT 11.4 SECONDS (9.7-12.2) 02/01/17 14:02 INR 1.0 02/01/17 14:02 APTT 48 SECONDS (21-34) H 02/01/17 14:02 - Constitutional Appears: Well - Head Exam Head Exam: ATRAUMATIC, NORMAL INSPECTION, NORMOCEPHALIC - Eye Exam Eye Exam: EOMI, Normal appearance, PERRL Pupil Exam: NORMAL ACCOMODATION, PERRL - ENT Exam ENT Exam: Mucous Membranes Moist, Normal Exam - Neck Exam Neck Exam: Full ROM, Normal Inspection. absent: Lymphadenopathy - Respiratory Exam Respiratory Exam: Clear to Ausculation Bilateral, NORMAL BREATHING PATTERN - Cardiovascular Exam Cardiovascular Exam: Irregular Rhythm, +S1, +S2, Murmur - GI/Abdominal Exam GI & Abdominal Exam: Soft, Normal Bowel Sounds. absent: Tenderness - Extremities Exam Extremities Exam: Full ROM, Normal Capillary Refill, Normal Inspection. absent : Joint Swelling, Pedal Edema - Back Exam Back Exam: NORMAL INSPECTION - Neurological Exam Neurological Exam: Alert, Awake, CN II-XII Intact, Oriented x3 - Psychiatric Exam Psychiatric exam: Normal Affect, Normal Mood - Skin Skin Exam: Dry, Intact, Normal Color, Warm Assessment and Plan (1) Mobitz type II block Assessment & Plan: with undelying atrial fibrillation and TIA will need to be on OAC after procedure , will keep on IV heparin for now Status: Acute (2) Aortic stenosis Assessment & Plan: Severe BLANKA shows RUPESH of 0.5 cm2 with peak gradients of 50 mm Hg Cardiac cath was deferred yesterday due to Cr of 2.6 Daughter wants her to be at [facility] and undergo TAVR , arranging transfer as per daughter I will continue to manage her cardiac care pre and post TAVR Status: Acute (3) TIA (transient ischemic attack) Assessment & Plan: recurrent episodes arch calcified plan for OAC post procedure will keep her on IV heparin for now Status: Acute (4) HTN (hypertension) Assessment & Plan: tachycardic with HR in 110 will change toprol xl to 100mg po daily Status: Chronic
[2017-02-06] MEDS ORDERED: Pneumococcal 23-Valent Vaccine IM ONE (10:00)
[2017-02-06] MEDS: Metoprolol Succinate 50 mg XL Tab PO SCH (10:17)
[2017-02-06] MEDS: Lactobacillus Acidophilus 500 MU Cap PO SCH (10:17)
[2017-02-06] MEDS: cefTRIAXone IV 1 gm in Dextros 50 ML IVPB SCH (10:18)
[2017-02-06 16:41] VITALS: BP 184/91; PULSE 114; O2SAT 95
--- NOTE | 2017-02-06 17:08 | CP.PCM.PN ---
Subjective - Date & Time of Evaluation Date of Evaluation: 02/06/17 Time of Evaluation: 16:10 - Subjective Subjective: Resident was paged to assess the patient prior to EMS transfer to [facility]. Patient was anxious and her BP was elevated at 184/91 and 178/108 on recheck. Patient denies having headache, shortness of breath, or chest pain. Dr. Cooper was notified and ordered clonidine 0.1mg to be given. Patient will be discharged with EMS. Objective - Vital Signs/Intake and Output Vital Signs (last 24 hours): Temp Pulse Resp BP Pulse Ox 98.4 F 114 H 20 184/91 H 95 02/06/17 16:00 02/06/17 16:00 02/06/17 16:00 02/06/17 16:00 02/06/17 16:00 Intake and Output: 02/06/17 02/06/17 06:59 18:59 Intake Total 320 350 Balance 320 350 - Labs Labs: 02/06/17 08:52 02/06/17 08:52 PT 11.4 SECONDS (9.7-12.2) 02/01/17 14:02 INR 1.0 02/01/17 14:02 APTT 48 SECONDS (21-34) H 02/01/17 14:02 - Constitutional Appears: Non-toxic, No Acute Distress - Head Exam Head Exam: ATRAUMATIC, NORMAL INSPECTION - Eye Exam Eye Exam: Normal appearance - ENT Exam ENT Exam: Mucous Membranes Moist - Neck Exam Neck Exam: Normal Inspection - Respiratory Exam Respiratory Exam: Clear to Ausculation Bilateral, NORMAL BREATHING PATTERN. absent: Respiratory Distress - Cardiovascular Exam Cardiovascular Exam: +S1 (systolic murmur), +S2 - GI/Abdominal Exam GI & Abdominal Exam: Soft, Normal Bowel Sounds - Extremities Exam Extremities Exam: Normal Capillary Refill, Normal Inspection - Neurological Exam Neurological Exam: Alert, Awake, Oriented x3 (Patient was able to name her D, [facility] and January) - Psychiatric Exam Psychiatric exam: Normal Affect, Normal Mood - Skin Skin Exam: Normal Color, Warm
--- NOTE | 2017-02-06 21:36 | CP.PCM.DIS ---
Provider - Provider Date of Admission: 02/02/17 15:04 Attending physician: Ubaldo Cooper MD Time Spent in preparation of Discharge (in minutes): 30 Diagnosis - Discharge Diagnosis (1) Diabetes mellitus Status: Chronic (2) Mobitz type II block Status: Acute Priority: High (3) HTN (hypertension) Status: Chronic Priority: High (4) Fever Status: Acute Hospital Course - Lab Results Lab Results: Micro Results 02/04/17 17:15 Blood Blood Culture - Preliminary NO GROWTH AFTER 48 HOURS 02/04/17 17:00 Blood Blood Culture - Preliminary NO GROWTH AFTER 48 HOURS Most Recent Lab Values WBC 6.5 K/uL (4.8-10.8) 02/06/17 08:52 RBC 4.63 Mil/uL (3.80-5.20) 02/06/17 08:52 Hgb 11.1 g/dL (11.0-16.0) 02/06/17 08:52 Hct 36.3 % (34.0-47.0) 02/06/17 08:52 MCV 78.3 fL (81.0-99.0) L 02/06/17 08:52 MCH 24.0 pg (27.0-31.0) L 02/06/17 08:52 MCHC 30.7 g/dL (33.0-37.0) L 02/06/17 08:52 RDW 18.9 % (11.5-14.5) H 02/06/17 08:52 Plt Count 260 K/uL (130-400) 02/06/17 08:52 MPV 8.7 fL (7.2-11.7) 02/06/17 08:52 Neut % (Auto) 66.5 % (50.0-75.0) 02/01/17 14:02 Lymph % (Auto) 20.2 % (20.0-40.0) 02/01/17 14:02 [place] % (Auto) 8.8 % (0.0-10.0) 02/01/17 14:02 Eos % (Auto) 3.1 % (0.0-4.0) 02/01/17 14:02 Baso % (Auto) 1.4 % (0.0-2.0) 02/01/17 14:02 Neut # 4.3 K/uL (1.8-7.0) 02/01/17 14:02 Lymph # 1.3 K/uL (1.0-4.3) 02/01/17 14:02 [place] # 0.6 K/uL (0.0-0.8) 02/01/17 14:02 Eos # 0.2 K/uL (0.0-0.7) 02/01/17 14:02 Baso # 0.1 K/uL (0.0-0.2) 02/01/17 14:02 PT 11.4 SECONDS (9.7-12.2) 02/01/17 14:02 INR 1.0 02/01/17 14:02 APTT 48 SECONDS (21-34) H 02/01/17 14:02 Sodium 137 mmol/L (132-148) 02/06/17 08:52 Potassium 5.1 mmol/L (3.6-5.2) 02/06/17 08:52 Chloride 100 mmol/L (98-107) 02/06/17 08:52 Carbon Dioxide 28 mmol/L (22-30) 02/06/17 08:52 Anion Gap 15 (10-20) 02/06/17 08:52 BUN 25 mg/dL (7-17) H 02/06/17 08:52 Creatinine 2.8 MG/DL (0.7-1.2) H 02/06/17 08:52 Est GFR ( Amer) 20 02/06/17 08:52 Est GFR (Non-Af Amer) 16 02/06/17 08:52 POC Glucose (mg/dL) 189 mg/dL (65-110) H 02/06/17 10:45 Random Glucose 210 mg/dL (65-105) H 02/06/17 08:52 Calcium 8.9 mg/dl (8.6-10.4) 02/06/17 08:52 Total Bilirubin 0.6 mg/dL (0.2-1.3) 02/01/17 15:21 AST 31 U/L (14-36) 02/01/17 15:21 ALT 19 U/L (9-52) 02/01/17 15:21 Alkaline Phosphatase 161 U/L (38-126) H D 02/01/17 15:21 Total Creatine Kinase 82 U/L (30-135) 02/01/17 14:02 CK-MB (Mass) 1.22 ng/mL (0.0-3.38) 02/01/17 14:02 Troponin I 0.0230 ng/mL (0.00-0.120) 02/01/17 14:02 NT-Pro-B Natriuret Pep 01586 pg/mL (0-900) H 02/04/17 16:57 Total Protein 7.5 g/dL (6.3-8.3) 02/01/17 15:21 Albumin 3.2 g/dL (3.5-5.0) L 02/01/17 15:21 Globulin 4.3 gm/dL (2.2-3.9) H 02/01/17 15:21 Albumin/Globulin Ratio 0.7 (1.0-2.1) L 02/01/17 15:21 Urine Color Yellow (YELLOW) 02/01/17 16:51 Urine Clarity Clear (Clear) 02/01/17 16:51 Urine pH 5.0 (5.0-8.0) 02/01/17 16:51 Ur Specific [place] 1.008 (1.003-1.030) 02/01/17 16:51 Urine Protein 2+ mg/dL (NEGATIVE) H 02/01/17 16:51 Urine Glucose (UA) 1+ mg/dL (Normal) 02/01/17 16:51 Urine Ketones Negative mg/dL (NEGATIVE) 02/01/17 16:51 Urine Blood Negative (NEGATIVE) 02/01/17 16:51 Urine Nitrate Negative (NEGATIVE) 02/01/17 16:51 Urine Bilirubin Negative (NEGATIVE) 02/01/17 16:51 Urine Urobilinogen Normal mg/dL (0.2-1.0) 02/01/17 16:51 Ur Leukocyte Esterase Trace Valerie/uL (Negative) 02/01/17 16:51 Urine WBC (Auto) 3 /hpf (0-5) 02/01/17 16:51 Urine RBC (Auto) 2 /hpf (0-3) 02/01/17 16:51 Ur Squamous Epith Cells 5 /hpf (0-5) 02/01/17 16:51 Urine Bacteria Rare (<OCC) 02/01/17 16:51 C. difficile Ag & Toxin Negative (NEGATIVE) 02/01/17 16:38 - Hospital Course Hospital Course: 81 Y/O WITH T2DM, HTN, CKD AND SEH CAME WITH HIGH BP AND THEN SHE WAS FOUND TO HAVE SEVERE AND HER DAUGHTER OPTED TO GO TO [facility], AND SHE WAS SENT TO THE SERVICE OF DR RUBY Discharge Exam - Head Exam Head Exam: ATRAUMATIC, NORMAL INSPECTION - Eye Exam Eye Exam: EOMI, Normal appearance, PERRL Pupil Exam: NORMAL ACCOMODATION - ENT Exam ENT Exam: Mucous Membranes Moist, Normal Exam, Normal Oropharynx, TM's Normal Bilaterally - Neck Exam Neck exam: Normal Inspection - Respiratory Exam Respiratory Exam: Rales, NORMAL BREATHING PATTERN - Cardiovascular Exam Cardiovascular Exam: REGULAR RHYTHM, +S1, +S2, Systolic Murmur - GI/Abdominal Exam GI & Abdominal Exam: Normal Bowel Sounds - Rectal Exam Rectal Exam: NORMAL INSPECTION - Neurological Exam Neurological exam: Abnormal Gait, Alert, CN II-XII Intact, Oriented x3, Reflexes Normal - Psychiatric Exam Psychiatric exam: Anxious, Depressed, Flat Affect - Skin Skin Exam: Intact Discharge Plan - Follow Up Plan Condition: FAIR Disposition: REHAB FACILITY/REHAB UNIT
--- NOTE | 2017-02-11 13:33 | PQF GENQUE ---
This form is a permanent part of the medical record Clarification of your documentation is requested to better reflect the severity of illness and intensity of treatment of your patient. PLEASE,CLARIFY ETIOLOGY OF SLURRED SPEECH PLEASE, CLARIFY IF TIA WAS RULED IN OR RULED OUT Indicators present [X] Specify: [ SLURRED SPEECH 02/01/17 TO 02/03/17 ] [X] Specify: [ TIA WAS DOCUMENTED CLINICAL IMPRESSION see: ER DEPT. on , PROGRESS NOTE 02/03 , 02/[address] EDGAR CONSULTS and P.NOTES also see: documentation by DR PONCE P . NOTE 02/04 ] [X] Specify: [ABNORMAL GAIT, HTN, DM2, CAD , NEW MOBITZ TYPE 2 BLOCK, AORTIC VALVE STENOSIS] [] Specify: [] Location in the medical record that reflects the above clinical findings: [ ED , CONSULTS, P.NOTES ] Treatment Provided: [PLAVIX MRI BRAIN] PHYSICIAN'S RESPONSE Based on your medical judgment of the clinical indicators outlined above please clarify the following: [] Practitioner response [] If unable to determine, please check the box, sign and date. Present On Admission (POA) Indicator: [] Present at the time of admission [] Not present at the time of admission [] Clinically Undetermined In responding to this query, please exercise your independent professional judgment. The fact that a question is asked does not imply that any particular answer is desired or expected. Thank you for your clarification on this documentation. If you have any questions please call:[[phone] ] * Thank you, [ Awilda Narvaez, CCS, [employer]] forestry instructor [employer]
--- NOTE | 2017-02-13 14:34 | CARD ---
APPROVED REPORT EKG Measurement Heart [id number] <Conclusion> Sinus tachycardia Nonspecific T wave abnormality Abnormal ECG
--- NOTE | 2017-02-28 22:13 | CARD ---
APPROVED REPORT EXAM: Transesophageal echocardiogram with color flow Doppler. INDICATION CVA/TIA aortic stenosis RISK FACTORS Hypertension Diabetes 2D DIMENSIONS LVOT Diameter1.9 (1.8-2.4cm) Aortic Valve AoV Peak Spyzverl513.7cm/sAoV VTI83.8cmAO Peak GR.76mmHg LVOT Peak Saxcpfux79.3cm/sLVOT VTI17.30cmAO Mean GR.47mmHg RUPESH (VMAX)0.72ez1DQW (VTI)0.58cm2 Mitral Valve MV E Kbmuqcsu13.5cm/sMV E Peak Gr.19mmHgMV E Mean Gr.13mmHg E/A ratio0.0 TDI E/Lateral E'0.0E/Medial E'0.0 Reason For Test : Evaluate aortic and mitral valve PROCEDURE After obtaining informed consent, patient underwent transesophageal echo in the [employer]. Type of Sedation : Conscious Sedation Sedation was provided by anesthesiologist. Sedation was achieved with intravenously. Transesophageal probe was inserted and advanced into esophagus without difficulty. The BLANKA was performed without complications. Throughout the procedure, the blood pressure, pulse oximetry, cardiac rhythm, and rate were monitored. The patient tolerated the procedure without adverse effects. Recovery from conscious sedation was uneventful and vital signs were stable. LEFT VENTRICLE The left ventricle is normal size. There is moderate concentric left ventricular hypertrophy. The left ventricular function is normal. The left ventricular ejection fraction is within the normal range. The Ejection Fraction is 65-70%. There is normal LV segmental wall motion. The left ventricular diastolic function is abnormal. No left ventricle thrombus noted on this study. There is no ventricular septal defect visualized. There is no left ventricular aneurysm. There is no mass noted in the left ventricle. RIGHT VENTRICLE The right ventricle is normal size. There is normal right ventricular wall thickness. The right ventricular systolic function is normal. ATRIA The left atrium is moderately dilated. The right atrium is mildly dilated. The interatrial septum is intact with no evidence for an atrial septal defect. AORTIC VALVE The aortic valve is severely calcified. The aortic valve is tri-cuspid. There is trace to mild aortic regurgitation. There is severe valvular aortic stenosis. Calculated aortic valve area is 0.5 cm2 with mean pressure gradient of 50 mmHg. There is no aortic valvular vegetation. MITRAL VALVE The mitral valve is calcified and displays decreased opening. Mitral annular calcification is moderate to severe. The mitral valve leaflets are calcified. There is no evidence of mitral valve prolapse. There is moderate mitral valve stenosis. Mitral regurgitation is mild. TRICUSPID VALVE The tricuspid valve is normal in structure. There is mild tricuspid regurgitation. There is no tricuspid valve prolapse or vegetation. There is no tricuspid valve stenosis. PULMONIC VALVE The pulmonary valve is normal in structure. There is no pulmonic valvular regurgitation. There is no pulmonic valvular stenosis. GREAT VESSELS The aortic root is normal in size. The ascending aorta is normal in size. The pulmonary artery is normal. The IVC was not visualized. PERICARDIAL EFFUSION There is no pericardial effusion. There is no pleural effusion. <Conclusion> The left ventricular function is normal. The left ventricular ejection fraction is within the normal range. The Ejection Fraction is 65-70%. There is severe valvular aortic stenosis. Calculated aortic valve area is 0.5 cm2 with mean pressure gradient of 50 mmHg. The mitral valve is calcified and displays decreased opening. Mitral annular calcification is moderate to severe. The mitral valve leaflets are calcified. There is moderate mitral valve stenosis. Mitral regurgitation is mild. There is mild tricuspid regurgitation.
== END 2017-02-06 16:20 | disposition short-term general hospital (02) | DRG 69 ==
LOC: C.ER 12:45 → C.9E 15:58 → C.6T 18:45 → OBSVTOIN 02-02 15:04
PROVIDERS: ADMIT Internal Medicine; ATTEND Internal Medicine
PROC: B246ZZ4 Ultrasonography of Right and Left Heart, Transesophageal (ICD-10-PCS; principal; 2017-02-05 12:00)
DX: G45.9 Transient cerebral ischemic attack, unspecified (principal); I44.1 Atrioventricular block, second degree; I35.0 Nonrheumatic aortic (valve) stenosis; E11.22 Type 2 diabetes mellitus with diabetic chronic kidney disease; I25.10 Atherosclerotic heart disease of native coronary artery without angina pectoris; R47.81 Slurred speech; I12.9 Hypertensive chronic kidney disease with stage 1 through stage 4 chronic kidney disease, or unspecified chronic kidney disease; N18.9 Chronic kidney disease, unspecified; F03.90 Unspecified dementia, unspecified severity, without behavioral disturbance, psychotic disturbance, mood disturbance, and anxiety; E78.5 Hyperlipidemia, unspecified; J45.909 Unspecified asthma, uncomplicated; Z95.5 Presence of coronary angioplasty implant and graft; Z91.040 Latex allergy status; Z91.013 Allergy to seafood

== ENCOUNTER 2017-03-26 12:48 | Inpatient (IN) | payer MEDICARE, OTHER ==
[2017-03-26 12:48] VITALS: BMI 29.2
--- NOTE | 2017-03-26 14:32 | RAD ---
PROCEDURE: CHEST RADIOGRAPH, 1 VIEW HISTORY: SOB COMPARISON: Portable chest 02/04/2017. FINDINGS: LUNGS: Interval resolution of prior infiltrates is appreciated bilaterally. PLEURA: No pneumothorax or pleural fluid seen. CARDIOVASCULAR: Cardiomediastinal silhouette appears stable. No pulmonary vascular derangement identified at this time. OSSEOUS STRUCTURES: No significant abnormalities. VISUALIZED UPPER ABDOMEN: Normal. OTHER FINDINGS: None. IMPRESSION: Interval resolution of prior infiltrates. No acute infiltrate is identified. No pleural effusion or pneumothorax appreciated bilaterally.
[2017-03-26 14:47] LABS: BASO # 0.1 K/uL (0.0-0.2); BASO % 1.1 % (0.0-2.0); EOS # 0.2 K/uL (0.0-0.7); EOS % 2.6 % (0.0-4.0); HEMATOCRIT 32.7 % (34.0-47.0); LYMPH # 1.6 K/uL (1.0-4.3); LYMPH % 24.6 % (20.0-40.0); MEAN CELL VOLUME 76.7 fL (81.0-99.0); MEAN CORPUSCULAR HEMOGLOBIN 25.3 pg (27.0-31.0); MEAN PLATELET VOLUME 8.7 fL (7.2-11.7); MONO # 0.7 K/uL (0.0-0.8); MONO % 10.6 % (0.0-10.0); NRBC % 0.1 % (0.0-2.0); RED CELL DISTRIBUTION WIDTH 19.7 % (11.5-14.5); WHITE BLOOD COUNT 6.5 K/uL (4.8-10.8)
[2017-03-26 15:04] LABS: POTASSIUM 3.8 mmol/L (3.6-5.2)
[2017-03-26 15:07] LABS: ALB/GLOB RATIO 0.7 (1.0-2.1); BILIRUBIN,TOTAL 0.6 mg/dL (0.2-1.3); CALCIUM 7.9 mg/dl (8.6-10.4)
[2017-03-26 15:24] LABS: TROPONIN I 0.03 ng/mL (0.00-0.120)
--- NOTE | 2017-03-26 16:00 | C.PDOC ---
Time Seen by Provider: 03/26/17 13:19 Chief Complaint (Nursing): Medical Clearance Past Medical History Vital Signs: Last Vital Signs Temp 98.6 F 03/26/17 12:59 Pulse 86 03/26/17 15:16 Resp 18 03/26/17 15:16 BP 181/92 H 03/26/17 15:16 Pulse Ox 100 03/26/17 16:00 - Medical History PMH: Dementia, HTN, TIA Denies: Chronic Kidney Disease Surgical History: Coronary Stent - [facility] Procedures ULTRASONOGRAPHY OF RIGHT AND LEFT HEART, TRANSESOPHAGEAL (02/02/17) Family History: States: Unknown Family Hx - Social History Hx Alcohol Use: No Hx Substance Use: No - Immunization History Hx Tetanus Toxoid Vaccination: No Hx Influenza Vaccination: No Hx Pneumococcal Vaccination: No ED Course And Treatment - Laboratory Results Result Diagrams: 03/26/17 14:29 03/26/17 14:29 O2 Sat by Pulse Oximetry: 100 (RA) Pulse Ox Interpretation: Normal - Other Rad CXR X-Ray: Viewed By Me, Read By Radiologist Interpretation: PROCEDURE: CHEST RADIOGRAPH, 1 VIEW. HISTORY: SOB. COMPARISON: Portable chest 02/04/2017. FINDINGS: LUNGS: Interval resolution of prior infiltrates is appreciated bilaterally. PLEURA: No pneumothorax or pleural fluid seen. CARDIOVASCULAR: Cardiomediastinal silhouette appears stable. No pulmonary vascular derangement identified at this time. OSSEOUS STRUCTURES: No significant abnormalities. VISUALIZED UPPER ABDOMEN: Normal. OTHER FINDINGS: None. IMPRESSION: Interval resolution of prior infiltrates. No acute infiltrate is identified. No pleural effusion or pneumothorax appreciated bilaterally. Disposition Discussed With : Ubaldo Cooper Doctor Will See Patient In The: Hospital Counseled Patient/Family Regarding: Studies Performed, Diagnosis - Disposition Disposition: HOSPITALIZED Disposition Time: 16:00 Condition: GUARDED Forms: [facility] (Yakut) - Clinical Impression Clinical Impression: CHF (congestive heart failure) Decision To Admit - Pt Status Changed To: Hospital Disposition Of: Observation - . Bed Request Type: Telemetry Admitting Physician: Ubaldo Cooper Patient Diagnosis: CHF (congestive heart failure)
[2017-03-26 16:41] VITALS: RESP 20
[2017-03-26] MEDS: (Novolog) Insulin Aspart, Recombinant 100 u/ml 10 ml vial SC SCH (22:21)
--- NOTE | 2017-03-26 22:22 | CP.PCM.HP ---
History of Present Illness - History of Present Illness History of Present Illness: CC: shortness of breath x 30 minutes HPI: Pt is 82 AA female with h/o aortic stenosis s/p TAVR procedure, after TAVR , Pt developed atrial fibbrillation, she is on rate lowering therpay as well as Eliquis,she is complaint with medication and she lives in senior living, she was doing well untill today when she developed acute onset of shortness of breath associated with diaphoresis, dry cough, orthopnea, PND, Pt was transpoted to ER , pt has chest pain, weakness, dizziness Present on Admission - Present on Admission Any Indicators Present on Admission: No Review of Systems - Review of Systems Systems not reviewed;Unavailable: Unstable Vital Signs, Respiratory Distress - Constitutional Constitutional: Lethargy, Malaise - EENT Eyes: absent: As Per HPI, Blind Spots, Blurred Vision, Change in Vision, Decreased Night Vision, Diplopia, Discharge, Dry Eye, Exophthalmos, Floaters, Irritation, Itchy Eyes, Loss of Peripheral Vision, Pain, Photophobia, Requires Corrective Lenses, Sees Flashes, Spots in Vision, Tunnel Vision, Other Visual Disturbances, Loss of Vision, Other Ears: absent: As Per HPI, Decreased Hearing, Ear Discharge, Ear Pain, Tinnitus, Abnormal Hearing, Disequilibrium, Dizziness, Other Nose/Mouth/Throat: absent: As Per HPI, Epistaxis, Nasal Congestion, Nasal Discharge, Nasal Obstruction, Nasal Trauma, Nose Pain, Post Nasal Drip, Sinus Pain, Sinus Pressure, Bleeding Gums, Change in Voice, Dental Pain, Dry Mouth, Dysphagia, Halitosis, Hoarsness, Lip Swelling, Mouth Lesions, Mouth Pain, Odynophagia, Sore Throat, Throat Swelling, Tongue Swelling, Facial Pain, Neck Pain, Neck Mass, Other - Cardiovascular Cardiovascular: Chest Pain, Diaphoresis, Dyspnea, Lightheadedness, Orthopnea, Paroxysmal Nocturnal Dyspnea - Respiratory Respiratory: Cough, Wheezing - Gastrointestinal Gastrointestinal: absent: As Per HPI, Abdominal Pain, Belching, Bloating, Change in Bowel Habits, Change in Stool Character, Coffee Ground Emesis, Constipation, Cramping, Diarrhea, Dyspepsia, Dysphagia, Early Satiety, Excessive Flatus, Fecal Incontinence, Heartburn, Hematemesis, Hematochezia, Loose Stools, Melena, Nausea, Odynophagia, Temesmus, Vomiting, Other - Genitourinary Genitourinary: Urinary Frequency - Neurological Neurological: Abnormal Gait, Dizziness, Memory Loss Past Patient History - Past Social History Smoking Status: Never Smoked - CARDIAC Hx Hypertension: Yes - NEUROLOGICAL Hx Dementia: Yes Hx Transient Ischemic Attacks (TIA): Yes - HEENT Hx HEENT Problems: Yes Hx Cataracts: Yes (right surgery 3yrs ago) - RENAL Hx Chronic Kidney Disease: No - ENDOCRINE/METABOLIC Hx Endocrine Disorders: Yes Hx Diabetes Mellitus Type 2: Yes - HEMATOLOGICAL/ONCOLOGICAL Hx Blood Disorders: No - INTEGUMENTARY Hx Dermatological Problems: No - MUSCULOSKELETAL/RHEUMATOLOGICAL Hx Falls: No - GASTROINTESTINAL Hx Gastrointestinal Disorders: No - GENITOURINARY/GYNECOLOGICAL Hx Genitourinary Disorders: Yes Hx Incontinence: Yes - PSYCHIATRIC Hx Substance Use: No - SURGICAL HISTORY Hx Coronary Stent: Yes - ANESTHESIA Hx Anesthesia: Yes Hx Anesthesia Reactions: No Hx Malignant Hyperthermia: No Meds Home Medications: Home Medication List Medication Instructions Recorded Confirmed Type Acetaminophen [Tylenol 325mg tab] 325 mg PO Q4 PRN tab 03/28/17 Rx Apixaban [Eliquis] 2.5 mg PO BID tab 03/28/17 Rx Gabapentin [Neurontin] 100 mg PO DAILY cap 03/28/17 Rx Insulin Aspart, Recombinant 0 unit SC ACHS unit 03/28/17 Rx [Novolog] Insulin Detemir [Levemir] 5 unit SC ACB unit 03/28/17 Rx Metoprolol Tartrate [Lopressor] 50 mg PO Q12 tab 03/28/17 Rx Multivitamins [Hexavitamin] 1 tab PO DAILY tab 03/28/17 Rx Pantoprazole [Protonix EC Tab] 40 mg PO DAILY ect 03/28/17 Rx Potassium Chloride [K-Dur 20 mEq 10 meq PO DAILY #30 tab 03/28/17 Rx ER Tab] hydrALAZINE [Apresoline] 50 mg PO Q8 #90 tab 03/28/17 Rx Allergies/Adverse Reactions: Allergies Allergy/AdvReac Type Severity Reaction Status Date / Time latex Allergy ITCHING Verified 03/26/17 13:04 shrimp Allergy ITCHING Verified 03/26/17 13:04 shellfish Allergy ITCHING Uncoded 03/26/17 13:04 Physical Exam - Constitutional Appears: No Acute Distress Additional comments: morbidly obese female in No acute distress - Eye Exam Eye Exam: EOMI, Normal appearance, PERRL Pupil Exam: NORMAL ACCOMODATION, PERRL - Respiratory Exam Respiratory Exam: Rales, Rhonchi Additional comments: b/l basal wet crackles - Cardiovascular Exam Cardiovascular Exam: Irregular Rhythm, +S1, +S2 Additional comments: 4/6 ESM at aortic area s3 positive - GI/Abdominal Exam GI & Abdominal Exam: Normal Bowel Sounds, Soft. absent: Tenderness - Extremities Exam Extremities exam: Positive for: pedal edema Additional comments: + 2 pitting edema - Psychiatric Exam Psychiatric exam: Normal Affect, Normal Mood Additional comments: demented, forgetful - Skin Skin Exam: Dry, Intact, Normal Color, Warm Results - Vital Signs Recent Vital Signs: Last Vital Signs Temp 98.6 F 03/26/17 12:59 Pulse 80 03/26/17 16:39 Resp 20 03/26/17 16:39 BP 175/74 H 03/26/17 16:39 Pulse Ox 100 03/26/17 16:39 - Labs Result Diagrams: 03/26/17 14:29 03/28/17 11:19 Labs: Laboratory Results - last 24 hr 03/26/17 03/26/17 03/26/17 13:29 14:29 14:29 WBC 6.5 RBC 4.27 Hgb 10.8 L Hct 32.7 L MCV 76.7 L MCH 25.3 L MCHC 33.0 RDW 19.7 H Plt Count 306 MPV 8.7 Neut % (Auto) 61.1 Lymph % (Auto) 24.6 [place] % (Auto) 10.6 H Eos % (Auto) 2.6 Baso % (Auto) 1.1 Neut # 4.0 Lymph # 1.6 [place] # 0.7 Eos # 0.2 Baso # 0.1 Sodium 139 Potassium 3.8 Chloride 100 Carbon Dioxide 25 Anion Gap 17 BUN 14 Creatinine 1.6 H Est GFR ( Amer) 38 Est GFR (Non-Af Amer) 31 POC Glucose (mg/dL) 173 H Random Glucose 133 H Calcium 7.9 L Total Bilirubin 0.6 AST 33 ALT 13 Alkaline Phosphatase 142 H Troponin I 0.0300 NT-Pro-B Natriuret Pep 07370 H Total Protein 8.0 Albumin 3.3 L Globulin 4.7 H Albumin/Globulin Ratio 0.7 L Influenza Typ A,B (EIA) 10/03/17 14:35 WBC RBC Hgb Hct MCV MCH MCHC RDW Plt Count MPV Neut % (Auto) Lymph % (Auto) [place] % (Auto) Eos % (Auto) Baso % (Auto) Neut # Lymph # [place] # Eos # Baso # Sodium Potassium Chloride Carbon Dioxide Anion Gap BUN Creatinine Est GFR ( Amer) Est GFR (Non-Af Amer) POC Glucose (mg/dL) Random Glucose Calcium Total Bilirubin AST ALT Alkaline Phosphatase Troponin I NT-Pro-B Natriuret Pep Total Protein Albumin Globulin Albumin/Globulin Ratio Influenza Typ A,B (EIA) Negative for flu a/b Assessment & Plan (1) Acute exacerbation of CHF (congestive heart failure) Assessment and Plan: intake out put cardio eval monitor pt Status: Acute (2) Accelerated hypertension Status: Acute (3) Dementia Status: Chronic (4) Diabetes mellitus Status: Chronic
[2017-03-27] MEDS: (Novolog) Insulin Aspart, Recombinant 100 u/ml 10 ml vial SC SCH ×4 (08:20→22:14)
[2017-03-27] MEDS: Insulin Detemir 100 units/ml Vial (Levemir) SC SCH (08:23)
[2017-03-27] MEDS: Pantoprazole 40 mg EC Tab PO SCH (10:26)
[2017-03-27] MEDS: Multiple Vitamins Tab PO SCH (10:26)
--- NOTE | 2017-03-27 13:05 | CP.PCM.CON ---
<Mallorie Magallanes - Last Filed: 03/27/17 17:18> History of Present Illness - History of Present Illness History of Present Illness: Cardiology Consult Note- Dr. Cordero's service CC: shortness of breath HPI: 82 year old female with past medical history significant for aortic stenosis s/p balloon valvuloplasty, diabetes, HTN and high cholesterol presented with complaints of acute shortness of breath as stated in primary medical provider's note. Patient herself was unsure as to why she was here. She apparently felt short of breath and thus came to the hospital. At the present moment, she denied chest pain, shortness of breath, subjective fevers or chills, nausea, vomiting, or diarrhea. PMHx- as stated above PSHx- balloon valvuloplasty Meds- Refer to MAR as patient is unsure Fam Hx- Mom had HTN Social- Patient admits to social alcohol use approximately 15 years prior. Denies ever smoking or using drugs Allergies- Per medical record- Patient is allergic to latex, shrimp and shellfish Review of Systems - Review of Systems Systems not reviewed;Unavailable: Other - Constitutional Constitutional: As Per HPI. absent: Headache - Cardiovascular Cardiovascular: absent: Chest Pain, Chest Pain at Rest, Dyspnea - Respiratory Respiratory: absent: Cough, Dyspnea - Gastrointestinal Gastrointestinal: absent: Nausea, Vomiting - Musculoskeletal Musculoskeletal: absent: Numbness - Integumentary Integumentary: absent: Dry Skin, Swelling - Neurological Neurological: absent: Confusion, Headaches, Weakness Past Patient History - Past Social History Smoking Status: Never Smoked - CARDIAC Hx Hypertension: Yes - NEUROLOGICAL Hx Dementia: Yes Hx Transient Ischemic Attacks (TIA): Yes - HEENT Hx HEENT Problems: Yes Hx Cataracts: Yes (right surgery 3yrs ago) - RENAL Hx Chronic Kidney Disease: No - ENDOCRINE/METABOLIC Hx Endocrine Disorders: Yes Hx Diabetes Mellitus Type 2: Yes - HEMATOLOGICAL/ONCOLOGICAL Hx Blood Disorders: No - INTEGUMENTARY Hx Dermatological Problems: No - MUSCULOSKELETAL/RHEUMATOLOGICAL Hx Falls: No - GASTROINTESTINAL Hx Gastrointestinal Disorders: No - GENITOURINARY/GYNECOLOGICAL Hx Genitourinary Disorders: Yes Hx Incontinence: Yes - PSYCHIATRIC Hx Substance Use: No - SURGICAL HISTORY Hx Coronary Stent: Yes - ANESTHESIA Hx Anesthesia: Yes Hx Anesthesia Reactions: No Hx Malignant Hyperthermia: No Meds Allergies/Adverse Reactions: Allergies Allergy/AdvReac Type Severity Reaction Status Date / Time latex Allergy ITCHING Verified 03/26/17 13:04 shrimp Allergy ITCHING Verified 03/26/17 13:04 shellfish Allergy ITCHING Uncoded 03/26/17 13:04 - Medications Medications: Current Medications Acetaminophen (Tylenol 325mg Tab) 325 mg PO Q4 PRN PRN Reason: Fever >100.4 F Last Admin: 03/27/17 02:24 Dose: 325 mg Apixaban (Eliquis) 2.5 mg PO BID [facility] Last Admin: 03/27/17 10:26 Dose: 2.5 mg Furosemide (Lasix) 40 mg IVP DAILY [facility] Last Admin: 03/27/17 10:35 Dose: 40 mg Gabapentin (Neurontin) 100 mg PO DAILY [facility] Last Admin: 03/27/17 10:25 Dose: 100 mg Hydralazine HCl (Apresoline) 25 mg PO Q8 [facility] Insulin Aspart (Novolog) 0 unit SC ACHS [facility] PRN Reason: Protocol Last Admin: 03/27/17 12:07 Dose: 2 unit Insulin Detemir (Levemir) 5 unit SC ACB [facility] Last Admin: 03/27/17 08:23 Dose: 5 unit Lactulose (Enulose) 10 gm PO DAILY PRN PRN Reason: Constipation Metoprolol Tartrate (Lopressor) 50 mg PO Q12H [facility] Last Admin: 03/27/17 05:49 Dose: 50 mg Multivitamins (Hexavitamin) 1 tab PO DAILY [facility] Last Admin: 03/27/17 10:26 Dose: 1 tab Pantoprazole Sodium (Protonix Ec Tab) 40 mg PO DAILY [facility] Last Admin: 03/27/17 10:26 Dose: 40 mg Pneumococcal Polyvalent Vaccine (Pneumovax 23 Vaccine) 0.5 ml IM .ONCE ONE Stop: 03/29/17 10:01 Rosuvastatin Calcium (Crestor) 20 mg PO HS [facility] Last Admin: 03/26/17 22:24 Dose: 20 mg Sitagliptin Phosphate (Januvia) 25 mg PO DAILY [facility] Last Admin: 03/27/17 10:25 Dose: 25 mg Physical Exam - Constitutional Appears: Non-toxic, No Acute Distress - Head Exam Head Exam: ATRAUMATIC, NORMOCEPHALIC - Eye Exam Eye Exam: EOMI, Normal appearance, PERRL Pupil Exam: NORMAL ACCOMODATION - ENT Exam ENT Exam: Mucous Membranes Moist - Neck Exam Neck exam: Positive for: Normal Inspection. Negative for: Full Rom - Respiratory Exam Respiratory Exam: NORMAL BREATHING PATTERN. absent: Wheezes - Cardiovascular Exam Cardiovascular Exam: REGULAR RHYTHM, +S1, +S2, Systolic Murmur - GI/Abdominal Exam GI & Abdominal Exam: Normal Bowel Sounds, Soft - Extremities Exam Extremities exam: Positive for: full ROM, normal capillary refill - Back Exam Back exam: FULL ROM - Neurological Exam Neurological exam: Alert, Normal Gait, Oriented x3, Reflexes Normal Results - Vital Signs Recent Vital Signs: Last Vital Signs Temp 97.9 F 03/27/17 07:00 Pulse 86 03/27/17 07:00 Resp 20 03/27/17 07:00 BP 167/92 H 03/27/17 10:35 Pulse Ox 99 03/27/17 07:00 - Labs Result Diagrams: 03/26/17 14:29 03/27/17 13:54 Labs: Laboratory Results - last 24 hr 03/26/17 03/26/17 03/26/17 13:29 14:29 14:29 WBC 6.5 RBC 4.27 Hgb 10.8 L Hct 32.7 L MCV 76.7 L MCH 25.3 L MCHC 33.0 RDW 19.7 H Plt Count 306 MPV 8.7 Neut % (Auto) 61.1 Lymph % (Auto) 24.6 [place] % (Auto) 10.6 H Eos % (Auto) 2.6 Baso % (Auto) 1.1 Neut # 4.0 Lymph # 1.6 [place] # 0.7 Eos # 0.2 Baso # 0.1 Sodium 139 Potassium 3.8 Chloride 100 Carbon Dioxide 25 Anion Gap 17 BUN 14 Creatinine 1.6 H Est GFR ( Amer) 38 Est GFR (Non-Af Amer) 31 POC Glucose (mg/dL) 173 H Random Glucose 133 H Calcium 7.9 L Total Bilirubin 0.6 AST 33 ALT 13 Alkaline Phosphatase 142 H Troponin I 0.0300 NT-Pro-B Natriuret Pep 51429 H Total Protein 8.0 Albumin 3.3 L Globulin 4.7 H Albumin/Globulin Ratio 0.7 L Influenza Typ A,B (EIA) 03/26/17 03/26/17 03/27/17 14:35 21:56 06:21 WBC RBC Hgb Hct MCV MCH MCHC RDW Plt Count MPV Neut % (Auto) Lymph % (Auto) [place] % (Auto) Eos % (Auto) Baso % (Auto) Neut # Lymph # [place] # Eos # Baso # Sodium Potassium Chloride Carbon Dioxide Anion Gap BUN Creatinine Est GFR ( Amer) Est GFR (Non-Af Amer) POC Glucose (mg/dL) 165 H 198 H Random Glucose Calcium Total Bilirubin AST ALT Alkaline Phosphatase Troponin I NT-Pro-B Natriuret Pep Total Protein Albumin Globulin Albumin/Globulin Ratio Influenza Typ A,B (EIA) Negative for flu a/b 03/27/17 11:33 WBC RBC Hgb Hct MCV MCH MCHC RDW Plt Count MPV Neut % (Auto) Lymph % (Auto) [place] % (Auto) Eos % (Auto) Baso % (Auto) Neut # Lymph # [place] # Eos # Baso # Sodium Potassium Chloride Carbon Dioxide Anion Gap BUN Creatinine Est GFR ( Amer) Est GFR (Non-Af Amer) POC Glucose (mg/dL) 190 H Random Glucose Calcium Total Bilirubin AST ALT Alkaline Phosphatase Troponin I NT-Pro-B Natriuret Pep Total Protein Albumin Globulin Albumin/Globulin Ratio Influenza Typ A,B (EIA) Assessment & Plan (1) Acute exacerbation of CHF (congestive heart failure) Assessment and Plan: Lasix 40 mg IV Daily BNP 12,500 F/U echo CXR - No active disease noted Troponin 0.0300 (negative though likely due to CHF exacerbation) Monitor Ins and outs Status: Acute (2) Aortic stenosis Assessment and Plan: Patient had valvuloplasty performed in the past; however balloon valve is no longer functioning. Patient is also not a candidate for TAVR at this time. Last echo performed was in January which showed an EF of 65-70% with severe valvular A repeat echo was ordered. F/U Status: Chronic (3) Dementia Assessment and Plan: Avoid medications that may predispose one to altered mental status Continue to monitor Status: Chronic (4) Diabetes mellitus Assessment and Plan: ISS Levemir 5 units ACS, Januvia 25mg PO daily On Crestor 20 mg PO HS Accuchecks A1c in December was 6.8 Status: Chronic (5) Hypokalemia Assessment and Plan: Repleted. Continue to monitor Status: Acute (6) HTN (hypertension) Assessment and Plan: Metoprolol Tartrate 50 mg Q12, Hydralazine 25 mg PO Q8 Status: Chronic Priority: High (7) Prophylactic measure Assessment and Plan: PPI 40 mg Po daily Eliquis 2.5 mg PO BID SCDs Discussed with Attending. Management and planning per Dr. Cordero Status: Acute <Lex Cordero - Last Filed: 03/27/17 21:45> Meds - Medications Medications: Current Medications Acetaminophen (Tylenol 325mg Tab) 325 mg PO Q4 PRN PRN Reason: Fever >100.4 F Last Admin: 03/27/17 02:24 Dose: 325 mg Apixaban (Eliquis) 2.5 mg PO BID [facility] Last Admin: 03/27/17 18:05 Dose: 2.5 mg Furosemide (Lasix) 40 mg IVP DAILY [facility] Last Admin: 03/27/17 10:35 Dose: 40 mg Gabapentin (Neurontin) 100 mg PO DAILY [facility] Last Admin: 03/27/17 10:25 Dose: 100 mg Hydralazine HCl (Apresoline) 25 mg PO Q8 [facility] Last Admin: 03/27/17 13:45 Dose: 25 mg Insulin Aspart (Novolog) 0 unit SC ACHS [facility] PRN Reason: Protocol Last Admin: 03/27/17 17:45 Dose: Not Given Insulin Detemir (Levemir) 5 unit SC ACB [facility] Last Admin: 03/27/17 08:23 Dose: 5 unit Lactulose (Enulose) 10 gm PO DAILY PRN PRN Reason: Constipation Metoprolol Tartrate (Lopressor) 50 mg PO Q12H [facility] Last Admin: 03/27/17 18:05 Dose: 50 mg Multivitamins (Hexavitamin) 1 tab PO DAILY [facility] Last Admin: 03/27/17 10:26 Dose: 1 tab Pantoprazole Sodium (Protonix Ec Tab) 40 mg PO DAILY [facility] Last Admin: 03/27/17 10:26 Dose: 40 mg Pneumococcal Polyvalent Vaccine (Pneumovax 23 Vaccine) 0.5 ml IM .ONCE ONE Stop: 03/29/17 10:01 Potassium Chloride (K-Dur 20 Meq Er Tab) 20 meq PO DAILY [facility] Stop: 03/30/17 17:46 Last Admin: 03/27/17 18:07 Dose: 20 meq Rosuvastatin Calcium (Crestor) 20 mg PO HS [facility] Last Admin: 03/26/17 22:24 Dose: 20 mg Sitagliptin Phosphate (Januvia) 25 mg PO DAILY [facility] Last Admin: 03/27/17 10:25 Dose: 25 mg Results - Vital Signs Recent Vital Signs: Last Vital Signs Temp 97.9 F 03/27/17 16:00 Pulse 90 03/27/17 16:00 Resp 20 03/27/17 16:00 BP 142/72 03/27/17 16:00 Pulse Ox 100 03/27/17 16:00 - Labs Result Diagrams: 03/26/17 14:29 03/27/17 13:54 Labs: Laboratory Results - last 24 hr 03/26/17 03/27/17 03/27/17 21:56 06:21 11:33 Sodium Potassium Chloride Carbon Dioxide Anion Gap BUN Creatinine Est GFR ( Amer) Est GFR (Non-Af Amer) POC Glucose (mg/dL) 165 H 198 H 190 H Random Glucose Calcium 03/27/17 03/27/17 13:54 16:27 Sodium 141 Potassium 3.5 L Chloride 100 Carbon Dioxide 29 Anion Gap 15 BUN 13 Creatinine 1.6 H Est GFR ( Amer) 38 Est GFR (Non-Af Amer) 31 POC Glucose (mg/dL) 126 H Random Glucose 141 H Calcium 9.0 Assessment & Plan - Assessment and Plan (Free Text) Assessment: Patient seen and evaluated with the medical insurance claims processor Plan of care as documented
[2017-03-27 14:15] LABS: POTASSIUM 3.5 mmol/L (3.6-5.2)
[2017-03-27] MEDS: Potassium Chloride 20 mEq ER Tab PO SCH (18:07)
[2017-03-27] MEDS ORDERED: Potassium Chloride 20 mEq/15 ml LIQ UD PO ONE (19:00)
--- NOTE | 2017-03-27 22:55 | CP.PCM.PN ---
Subjective - Date & Time of Evaluation Date of Evaluation: 03/27/17 Time of Evaluation: 20:40 - Subjective Subjective: Pt seen and examined, is feeling better Objective - Vital Signs/Intake and Output Vital Signs (last 24 hours): Temp Pulse Resp BP Pulse Ox 97.9 F 90 20 142/72 100 03/27/17 16:00 03/27/17 16:00 03/27/17 16:00 03/27/17 16:00 03/27/17 16:00 Intake and Output: 03/27/17 03/28/17 18:59 06:59 Intake Total 500 Balance 500 - Medications Medications: Current Medications Acetaminophen (Tylenol 325mg Tab) 325 mg PO Q4 PRN PRN Reason: Fever >100.4 F Last Admin: 03/27/17 02:24 Dose: 325 mg Apixaban (Eliquis) 2.5 mg PO BID [facility] Last Admin: 03/27/17 18:05 Dose: 2.5 mg Furosemide (Lasix) 40 mg IVP DAILY [facility] Last Admin: 03/27/17 10:35 Dose: 40 mg Gabapentin (Neurontin) 100 mg PO DAILY [facility] Last Admin: 03/27/17 10:25 Dose: 100 mg Hydralazine HCl (Apresoline) 25 mg PO Q8 [facility] Last Admin: 03/27/17 21:44 Dose: 25 mg Insulin Aspart (Novolog) 0 unit SC ACHS [facility] PRN Reason: Protocol Last Admin: 03/27/17 22:14 Dose: Not Given Insulin Detemir (Levemir) 5 unit SC ACB [facility] Last Admin: 03/27/17 08:23 Dose: 5 unit Lactulose (Enulose) 10 gm PO DAILY PRN PRN Reason: Constipation Metoprolol Tartrate (Lopressor) 50 mg PO Q12H [facility] Last Admin: 03/27/17 18:05 Dose: 50 mg Multivitamins (Hexavitamin) 1 tab PO DAILY [facility] Last Admin: 03/27/17 10:26 Dose: 1 tab Pantoprazole Sodium (Protonix Ec Tab) 40 mg PO DAILY [facility] Last Admin: 03/27/17 10:26 Dose: 40 mg Pneumococcal Polyvalent Vaccine (Pneumovax 23 Vaccine) 0.5 ml IM .ONCE ONE Stop: 03/29/17 10:01 Potassium Chloride (K-Dur 20 Meq Er Tab) 20 meq PO DAILY [facility] Stop: 03/30/17 17:46 Last Admin: 03/27/17 18:07 Dose: 20 meq Rosuvastatin Calcium (Crestor) 20 mg PO HS [facility] Last Admin: 03/27/17 21:44 Dose: 20 mg Sitagliptin Phosphate (Januvia) 25 mg PO DAILY [facility] Last Admin: 03/27/17 10:25 Dose: 25 mg - Labs Labs: 03/26/17 14:29 03/27/17 13:54 - Constitutional Appears: No Acute Distress - Head Exam Head Exam: ATRAUMATIC, NORMAL INSPECTION, NORMOCEPHALIC - Eye Exam Eye Exam: EOMI, Normal appearance, PERRL Pupil Exam: NORMAL ACCOMODATION, PERRL - ENT Exam ENT Exam: Mucous Membranes Moist, Normal Exam - Respiratory Exam Respiratory Exam: Decreased Breath Sounds, Rales, NORMAL BREATHING PATTERN - Cardiovascular Exam Cardiovascular Exam: REGULAR RHYTHM, +S1, +S2. absent: Murmur Additional comments: s3 positive 4/6 ESM at aortic area - GI/Abdominal Exam GI & Abdominal Exam: Soft, Normal Bowel Sounds. absent: Tenderness Assessment and Plan (1) Acute exacerbation of CHF (congestive heart failure) Assessment & Plan: s/p TAVR procedure Status: Acute (2) Accelerated hypertension Status: Acute (3) Dementia Status: Chronic (4) Diabetes mellitus Status: Chronic (5) CHF (congestive heart failure) Assessment & Plan: no shortness of breath no orthopnea/ PND pt is improving Status: Acute (6) Aortic stenosis, moderate Status: Acute
[2017-03-27] MEDS ORDERED: Labetalol 25mg/5ml Syringe IVP STA (23:54)
--- NOTE | 2017-03-27 23:57 | CARD ---
APPROVED REPORT EXAM: Two-dimensional and M-mode echocardiogram with Doppler and color Doppler. Other Information Quality : GoodRhythm : INDICATION CVA/TIA Congestive Heart Failure RISK FACTORS Hypertension Diabetes 2D DIMENSIONS IVSd1.3 (0.7-1.1cm)LVDd3.3 (3.9-5.9cm) LVOT Diameter1.9 (1.8-2.4cm)PWd1.6 (0.7-1.1cm) LVDs2.2 (2.5-4.0cm)FS (%) 34.2 % LVEF (%)64.5 (>50%) M-Mode DIMENSIONS Left Atrium (MM)4.34 (2.5-4.0cm)Aortic Root2.95 (2.2-3.7cm) Aortic Cusp Exc.1.25 (1.5-2.0cm) Aortic Valve AoV Peak Vhqxjkhp874.6cm/sAoV VTI90.3cmAO Peak GR.55mmHg LVOT Peak Igpojybj14.5cm/sLVOT VTI20.78cmAO Mean GR.37mmHg RUPESH (VMAX)0.67za1ANH (VTI)0.67cm2 Mitral Valve MV E Dibkelfn482.7cm/sMV E Peak Gr.21mmHgMV A Iqcivyzk548.2cm/s MV E Mean Gr.8mmHgMV ZGZ28ijF/A ratio1.1 MVA (PHT)2.56cm2 TDI E/Lateral E'0.0E/Medial E'0.0 Tricuspid Valve TR Peak Zrtonxei636jt/sTR Peak Gr.09rjVvVYBT59taTu LEFT VENTRICLE The left ventricle is normal size. There is normal left ventricular wall thickness. Left ventricle systolic function is normal. The Ejection Fraction is 60-65%. There is normal LV segmental wall motion. The left ventricular diastolic function is normal. No left ventricle thrombus noted on this study. RIGHT VENTRICLE The right ventricle is normal size. There is normal right ventricular wall thickness. The right ventricular systolic function is normal. ATRIA The left atrium is mildly dilated. The right atrium size is normal. The interatrial septum is intact with no evidence for an atrial septal defect. AORTIC VALVE The aortic valve is normal in structure. No aortic regurgitation is present. There is severe valvular aortic stenosis. Calculated aortic valve area is 0.64 cm2 with maximum pressure gradient of 55 mmHg and mean pressure gradient of 37 mmHg. MITRAL VALVE Mitral annular calcification is moderate. The mitral valve leaflets are thickened and calcified. The mitral valve is calcified but opens well. There is no evidence of mitral valve prolapse. There is no mitral valve stenosis. There is no mitral valve regurgitation noted. TRICUSPID VALVE The tricuspid valve is normal in structure. There is mild tricuspid regurgitation. Right ventricular systolic pressure is estimated at less than 30 mmHg. There is no pulmonary hypertension. PULMONIC VALVE The pulmonic valve is not well visualized. There is no pulmonic valvular regurgitation. GREAT VESSELS The aortic root is normal in size. PERICARDIAL EFFUSION There is no significant pericardial effusion. <Conclusion> Left ventricle systolic function is normal. The Ejection Fraction is 60-65%. There is severe valvular aortic stenosis. There is no mitral valve regurgitation noted. There is mild tricuspid regurgitation. There is no pulmonary hypertension. There is no pulmonic valvular regurgitation.
[2017-03-28] MEDS: Insulin Detemir 100 units/ml Vial (Levemir) SC SCH (07:58)
--- NOTE | 2017-03-28 08:29 | CP.PCM.PN ---
Subjective - Date & Time of Evaluation Date of Evaluation: 03/28/17 Time of Evaluation: 08:00 Objective - Vital Signs/Intake and Output Vital Signs (last 24 hours): Temp Pulse Resp BP Pulse Ox 98 F 100 H 20 162/81 H 95 03/28/17 08:00 03/28/17 08:00 03/28/17 08:00 03/28/17 08:00 03/28/17 08:00 - Medications Medications: Current Medications Acetaminophen (Tylenol 325mg Tab) 325 mg PO Q4 PRN PRN Reason: Fever >100.4 F Last Admin: 03/27/17 02:24 Dose: 325 mg Apixaban (Eliquis) 2.5 mg PO BID [facility] Last Admin: 03/27/17 18:05 Dose: 2.5 mg Furosemide (Lasix) 40 mg IVP DAILY [facility] Last Admin: 03/27/17 10:35 Dose: 40 mg Gabapentin (Neurontin) 100 mg PO DAILY [facility] Last Admin: 03/27/17 10:25 Dose: 100 mg Hydralazine HCl (Apresoline) 25 mg PO Q8 [facility] Last Admin: 03/28/17 05:25 Dose: 25 mg Insulin Aspart (Novolog) 0 unit SC ACHS [facility] PRN Reason: Protocol Last Admin: 03/27/17 22:14 Dose: Not Given Insulin Detemir (Levemir) 5 unit SC ACB [facility] Last Admin: 03/28/17 07:58 Dose: 5 unit Lactulose (Enulose) 10 gm PO DAILY PRN PRN Reason: Constipation Metoprolol Tartrate (Lopressor) 50 mg PO Q12H [facility] Last Admin: 03/28/17 07:45 Dose: Not Given Multivitamins (Hexavitamin) 1 tab PO DAILY [facility] Last Admin: 03/27/17 10:26 Dose: 1 tab Pantoprazole Sodium (Protonix Ec Tab) 40 mg PO DAILY [facility] Last Admin: 03/27/17 10:26 Dose: 40 mg Pneumococcal Polyvalent Vaccine (Pneumovax 23 Vaccine) 0.5 ml IM .ONCE ONE Stop: 03/29/17 10:01 Potassium Chloride (K-Dur 20 Meq Er Tab) 20 meq PO DAILY [facility] Stop: 03/30/17 17:46 Last Admin: 03/27/17 18:07 Dose: 20 meq Rosuvastatin Calcium (Crestor) 20 mg PO HS [facility] Sitagliptin Phosphate (Januvia) 25 mg PO DAILY [facility] Last Admin: 03/27/17 10:25 Dose: 25 mg - Labs Labs: 03/26/17 14:29 03/27/17 13:54 Assessment and Plan (1) Acute exacerbation of CHF (congestive heart failure) Status: Acute (2) Accelerated hypertension Status: Acute (3) Dementia Status: Chronic (4) Diabetes mellitus Status: Chronic (5) CHF (congestive heart failure) Status: Acute (6) Aortic stenosis, moderate Status: Acute
[2017-03-28] MEDS: (Novolog) Insulin Aspart, Recombinant 100 u/ml 10 ml vial SC SCH ×4 (08:44→21:08)
[2017-03-28] MEDS: Potassium Chloride 20 mEq ER Tab PO SCH (09:55)
[2017-03-28] MEDS: Pantoprazole 40 mg EC Tab PO SCH (09:55)
[2017-03-28] MEDS: Multiple Vitamins Tab PO SCH (09:56)
[2017-03-28 11:40] LABS: POTASSIUM 3.5 mmol/L (3.6-5.2)
[2017-03-28] MEDS ORDERED: Potassium Chloride 20 mEq ER Tab PO ONE (14:00)
[2017-03-28 16:09] VITALS: BP 160/74; PULSE 106; TEMP 98.2; O2SAT 98
--- NOTE | 2017-03-28 16:26 | PCM.HF ---
Heart Failure Core Measure - Heart Failure Ejection Fraction: 40 % or Greater ANUSHKA Inhibitor Prescribed: No Contraindication/Reason for not providing: CRF/EF>45 Beta-Blessing Prescribed: Metoprolol Succinate Angiotensin II Receptor Blessing Prescribed: No Contraindication/Reason for not providing: crf AnticoagulationTherapy for Atrial Fibrillation/Atrialflutter: Yes Aldosterone Antagonist Prescribed: No Contraindication/Reason for not providing: EF>45 Hydralazine Nitrate Prescribed: Yes Implantable Cardioverter Defibrillator Therapy: No Contraindication/Reason for not providing: EF>45 Cardiac Resynchronization Therapy Prescribed: No Contraindication/Reason for not providing: EF>45 - Follow up [facility] be discharged to: [facility] Follow Up Date (must be within 7 days from discharge): 03/30/17 Follow Up Time: 09:00
[2017-03-28] MEDS ORDERED: Influenza Vaccine 60 mcg/0.5 mL SYR (4YR UP) IM ONE (17:00)
[2017-03-28] MEDS ORDERED: Pneumococcal 23-Valent Vaccine IM ONE (17:00)
--- NOTE | 2017-03-28 17:16 | CP.PCM.PN ---
Subjective - Date & Time of Evaluation Date of Evaluation: 03/28/17 Time of Evaluation: 12:00 - Subjective Subjective: patient seen today awake, alert , seems comfortable denies any complaints No overnight events recorded on monitor Objective - Vital Signs/Intake and Output Vital Signs (last 24 hours): Temp Pulse Resp BP Pulse Ox 98.2 F 106 H 20 160/74 H 98 03/28/17 16:00 03/28/17 16:00 03/28/17 16:00 03/28/17 16:00 03/28/17 16:00 Intake and Output: 03/28/17 03/28/17 06:59 18:59 Intake Total 250 Output Total 500 Balance -250 - Medications Medications: Current Medications Acetaminophen (Tylenol 325mg Tab) 325 mg PO Q4 PRN PRN Reason: Fever >100.4 F Last Admin: 03/27/17 02:24 Dose: 325 mg Apixaban (Eliquis) 2.5 mg PO BID [facility] Last Admin: 03/28/17 09:55 Dose: 2.5 mg Furosemide (Lasix) 40 mg IVP DAILY [facility] Last Admin: 03/28/17 09:55 Dose: 40 mg Gabapentin (Neurontin) 100 mg PO DAILY [facility] Last Admin: 03/28/17 09:56 Dose: 100 mg Hydralazine HCl (Apresoline) 25 mg PO Q8 [facility] Last Admin: 03/28/17 13:25 Dose: 25 mg Insulin Aspart (Novolog) 0 unit SC ACHS [facility] PRN Reason: Protocol Last Admin: 03/28/17 16:45 Dose: Not Given Insulin Detemir (Levemir) 5 unit SC ACB [facility] Last Admin: 03/28/17 07:58 Dose: 5 unit Lactulose (Enulose) 10 gm PO DAILY PRN PRN Reason: Constipation Metoprolol Tartrate (Lopressor) 50 mg PO Q12H [facility] Last Admin: 03/28/17 07:45 Dose: Not Given Multivitamins (Hexavitamin) 1 tab PO DAILY [facility] Last Admin: 03/28/17 09:56 Dose: 1 tab Pantoprazole Sodium (Protonix Ec Tab) 40 mg PO DAILY [facility] Last Admin: 03/28/17 09:55 Dose: 40 mg Potassium Chloride (K-Dur 20 Meq Er Tab) 20 meq PO DAILY [facility] Stop: 03/30/17 17:46 Last Admin: 03/28/17 09:55 Dose: 20 meq Rosuvastatin Calcium (Crestor) 10 mg PO HS [facility] Sitagliptin Phosphate (Januvia) 25 mg PO DAILY [facility] Last Admin: 03/28/17 09:56 Dose: 25 mg - Labs Labs: 03/26/17 14:29 03/28/17 11:19 Assessment and Plan - Assessment and Plan (Free Text) Assessment: A/P 82 year old female with past medical history significant for aortic stenosis s/ p balloon valvuloplasty, diabetes, HTN and high cholesterol admitted for shortness of breath/ exc. CHF pt clinically improved after diuresis Dr. Cordero consulted for EXC. CHF, D/W Dr. Cordero , cleared for discharge patient back to [place] from cardiology stand point and f/u with Dr. Cordero office in 1 month D/w Dr. Cooper, cleared for discharge back to [facility] and Dr. Cooper will follow the patient at [facility]
--- NOTE | 2017-03-29 00:45 | CP.PCM.DIS ---
Provider - Provider Date of Admission: 03/27/17 17:04 Attending physician: Ubaldo Cooper MD Time Spent in preparation of Discharge (in minutes): 45 Diagnosis - Discharge Diagnosis (1) Acute exacerbation of CHF (congestive heart failure) Status: Acute (2) Accelerated hypertension Status: Acute (3) Dementia Status: Chronic (4) Diabetes mellitus Status: Chronic (5) CHF (congestive heart failure) Status: Acute (6) Aortic stenosis, moderate Status: Acute Hospital Course - Lab Results Lab Results: Most Recent Lab Values WBC 6.5 K/uL (4.8-10.8) 03/26/17 14:29 RBC 4.27 Mil/uL (3.80-5.20) 03/26/17 14:29 Hgb 10.8 g/dL (11.0-16.0) L 03/26/17 14:29 Hct 32.7 % (34.0-47.0) L 03/26/17 14: MCV 76.7 fL (81.0-99.0) L 03/26/17 14:29 MCH 25.3 pg (27.0-31.0) L 03/26/17 14: MCHC 33.0 g/dL (33.0-37.0) 03/26/17 14: RDW 19.7 % (11.5-14.5) H 03/26/17 14:29 Plt Count 306 K/uL (130-400) 03/26/17 14:29 MPV 8.7 fL (7.2-11.7) 03/26/17 14: Neut % (Auto) 61.1 % (50.0-75.0) 03/26/17 14:29 Lymph % (Auto) 24.6 % (20.0-40.0) 03/26/17 14: [place] % (Auto) 10.6 % (0.0-10.0) H 03/26/17 14: Eos % (Auto) 2.6 % (0.0-4.0) 03/26/17 14: Baso % (Auto) 1.1 % (0.0-2.0) 03/26/17 14: Neut # 4.0 K/uL (1.8-7.0) 03/26/17 14:29 Lymph # 1.6 K/uL (1.0-4.3) 03/26/17 14:29 [place] # 0.7 K/uL (0.0-0.8) 03/26/17 14:29 Eos # 0.2 K/uL (0.0-0.7) 03/26/17 14:29 Baso # 0.1 K/uL (0.0-0.2) 03/26/17 14:29 Sodium 135 mmol/L (132-148) 03/28/17 11:19 Potassium 3.5 mmol/L (3.6-5.2) L 03/28/17 11:19 Chloride 100 mmol/L (98-107) 03/28/17 11:19 Carbon Dioxide 28 mmol/L (22-30) 03/28/17 11:19 Anion Gap 11 (10-20) 03/28/17 11:19 BUN 15 mg/dL (7-17) 03/28/17 11:19 Creatinine 1.6 mg/dL (0.7-1.2) H 03/28/17 11:19 Est GFR ( Amer) 38 03/28/17 11:19 Est GFR (Non-Af Amer) 31 03/28/17 11:19 POC Glucose (mg/dL) 142 mg/dL (65-110) H 03/28/17 16:08 Random Glucose 213 mg/dL (65-105) H 03/28/17 11:19 Calcium 8.0 mg/dl (8.6-10.4) L 03/28/17 11:19 Total Bilirubin 0.6 mg/dL (0.2-1.3) 03/26/17 14:29 AST 33 U/L (14-36) 03/26/17 14:29 ALT 13 U/L (9-52) 03/26/17 14:29 Alkaline Phosphatase 142 U/L (38-126) H 03/26/17 14:29 Troponin I 0.0300 ng/mL (0.00-0.120) 03/26/17 14:29 NT-Pro-B Natriuret Pep 47353 pg/mL (0-900) H 03/26/17 14:29 Total Protein 8.0 g/dL (6.3-8.3) 03/26/17 14:29 Albumin 3.3 g/dL (3.5-5.0) L 03/26/17 14:29 Globulin 4.7 gm/dL (2.2-3.9) H 03/26/17 14:29 Albumin/Globulin Ratio 0.7 (1.0-2.1) L 03/26/17 14:29 Influenza Typ A,B (EIA) Negative for flu a/b (NEGATIVE) 03/26/17 14:35 - Hospital Course Hospital Course: Pt is discharge back to assisted chets pain resolved Discharge Exam - Head Exam Head Exam: ATRAUMATIC, NORMAL INSPECTION, NORMOCEPHALIC - Eye Exam Eye Exam: EOMI, Normal appearance, PERRL Pupil Exam: NORMAL ACCOMODATION, PERRL - ENT Exam ENT Exam: Mucous Membranes Moist - Respiratory Exam Respiratory Exam: Rales, NORMAL BREATHING PATTERN - Cardiovascular Exam Cardiovascular Exam: REGULAR RHYTHM, +S1, +S2 - GI/Abdominal Exam GI & Abdominal Exam: Normal Bowel Sounds Discharge Plan - Discharge Medications Prescriptions: hydrALAZINE [Apresoline] 50 mg PO Q8 #90 tab - Follow Up Plan Condition: GUARDED Disposition: REHAB FACILITY/REHAB UNIT Instructions: Heart Failure (DC), Heart Healthy Diet (DC), Chronic Hypertension (DC), Low Sodium Diet (DC) Additional Instructions: PLEASE CALL DR. COOPER UPON PATIENT ARRIVAL TO THE FACILITY PLEASE F/U WITH DR. MCQUEEN OFFICE IN 1 MONTH - CALL FOR APPOINTEMNT PLEASE DO CBC , BMP ON SATURDAY CONTINUE MEDICATION PER . MED.REC.
[2017-03-29] MEDS ORDERED: Influenza Vaccine 60 mcg/0.5 mL SYR (4YR UP) IM ONE (10:00)
[2017-03-29] MEDS ORDERED: Pneumococcal 23-Valent Vaccine IM ONE (10:00)
--- NOTE | 2017-03-31 06:43 | CARD ---
APPROVED REPORT EKG Measurement Heart [id number] MA 130P [id number] <Conclusion> Sinus rhythm with marked sinus arrhythmia Nonspecific T wave abnormality Abnormal ECG
== END 2017-03-28 21:19 | DRG 293 ==
LOC: C.ER 12:48 → C.9E 16:01 → C.5S 16:38 → OBSVTOIN 03-27 17:04
PROVIDERS: ADMIT Internal Medicine; ATTEND Internal Medicine
DX: I11.0 Hypertensive heart disease with heart failure (principal); I50.9 Heart failure, unspecified; E11.9 Type 2 diabetes mellitus without complications; E87.6 Hypokalemia; I35.0 Nonrheumatic aortic (valve) stenosis; I25.10 Atherosclerotic heart disease of native coronary artery without angina pectoris; E78.00 Pure hypercholesterolemia, unspecified; F03.90 Unspecified dementia, unspecified severity, without behavioral disturbance, psychotic disturbance, mood disturbance, and anxiety; Z79.01 Long term (current) use of anticoagulants; Z79.4 Long term (current) use of insulin; Z79.899 Other long term (current) drug therapy; Z86.73 Personal history of transient ischemic attack (TIA), and cerebral infarction without residual deficits; Z91.040 Latex allergy status; Z95.2 Presence of prosthetic heart valve; Z95.5 Presence of coronary angioplasty implant and graft; Z91.013 Allergy to seafood

== ENCOUNTER 2017-05-10 04:45 | Inpatient (IN) | payer MEDICARE, OTHER ==
[2017-05-10 04:47] VITALS: BMI 29.2
--- NOTE | 2017-05-10 05:12 | C.PDOC ---
History Of Present Illness Sent from [place] for shortness of breath , which woke her up. Denies any chest pain , palpitations. Speaking in 2-3 word sentences. No f/c/n/v. Time Seen by Provider: 05/10/17 05:11 Chief Complaint (Nursing): Shortness Of Breath Past Medical History Reviewed: Historical Data, Nursing Documentation, Vital Signs Vital Signs: Last Vital Signs Temp Pulse 102 H 05/10/17 06:24 Resp 26 H 05/10/17 06:24 BP 178/99 H 05/10/17 06:24 Pulse Ox 100 05/10/17 06:24 - Medical History PMH: Alzheimer's Disease, CHF, Dementia, HTN, TIA Denies: Chronic Kidney Disease Surgical History: Coronary Stent - [facility] Procedures ULTRASONOGRAPHY OF RIGHT AND LEFT HEART, TRANSESOPHAGEAL (02/02/17) Family History: States: No Known Family Hx - Social History Hx Alcohol Use: No Hx Substance Use: No - Immunization History Hx Tetanus Toxoid Vaccination: No Hx Influenza Vaccination: No Hx Pneumococcal Vaccination: No Review Of Systems Constitutional: Negative for: Fever, Chills ENT: Negative for: Throat Pain Cardiovascular: Negative for: Chest Pain Respiratory: Positive for: Shortness of Breath, SOB with Excertion Gastrointestinal: Negative for: Nausea, Vomiting, Abdominal Pain Genitourinary: Negative for: Dysuria Musculoskeletal: Negative for: Back Pain Skin: Negative for: Rash Neurological: Negative for: Weakness Psych: Negative for: Anxiety Physical Exam - Physical Exam Appears: Non-toxic Skin: Warm, Dry Head: Normacephalic Eye(s): bilateral: Normal Inspection Oral Mucosa: Moist Neck: Trachea Midline, Supple Chest: Symmetrical Cardiovascular: Rhythm Regular Respiratory: Decreased Breath Sounds, Rales, No Rhonchi, No Wheezing Gastrointestinal/Abdominal: Soft, No Tenderness, No Distention Back: Normal Inspection Extremity: No Tenderness, Pedal Edema Extremity: Bilateral: Atraumatic Pulses: Left Dorsalis Pedis: Normal, Right Dorsalis Pedis: Normal Neurological/Psych: Normal Speech Gait: Unable To Assess ED Course And Treatment - Laboratory Results Result Diagrams: 05/10/17 05:22 05/10/17 05:48 ECG: Interpreted By Me, Viewed By Me ECG Rhythm: Sinus Rhythm (102), Nonspecific Changes O2 Sat by Pulse Oximetry: 100 Pulse Ox Interpretation: Normal - Radiology CXR: Interpreted by Me, Viewed By Me CXR Interpretation: Yes: Cardiomegaly, Other (chf, left effusion). No: COPD, Fracture Critical Care Time - Critical Care Note Total Time (in mins): 30 Documented critical care: time excludes all time spent performing seperately billable procedures. Disposition Discussed With Dr.: Ubaldo Cooper Comment: accepted the pt on his service and took over the care at 5:55 AM Doctor Will See Patient In The: Hospital Counseled Patient/Family Regarding: Studies Performed, Diagnosis - Disposition Disposition: HOSPITALIZED Disposition Time: 05:11 Condition: FAIR Forms: [employer] (Surinamese) - POA Present On Arrival: None - Clinical Impression Clinical Impression: Dyspnea, Acute exacerbation of CHF (congestive heart failure), Leg edema, NSTEMI (non-ST elevated myocardial infarction) Decision To Admit - Pt Status Changed To: Hospital Disposition Of: Inpatient - Admit Certification Admit to Inpatient:: After my assessment, the patient will require hospitalization for at least two midnights. This is because of the severity of symptoms shown, intensity of services needed, and/or the medical risk in this patient being treated as an outpatient. - InPatient: Physician Admission Certification: I certify that this patient requires 2 or more midnights of care for the following reason:: After my assessment, the patient will require hospitalization for at least two midnights. This is because of the severity of symptoms shown, intensity of services needed, and/or the medical risk in this patient being treated as an outpatient. - . Bed Request Type: Telemetry Admitting Physician: Ubaldo Cooper Patient Diagnosis: Dyspnea, Acute exacerbation of CHF (congestive heart failure), Leg edema
[2017-05-10] MEDS ORDERED: Nitroglycerin 2% Ointment Foilpak UD TOP STA (05:25)
[2017-05-10 05:28] LABS: DRAW SITE RB
[2017-05-10 05:29] LABS: BASO # 0.1 K/uL (0.0-0.2); BASO % 0.7 % (0.0-2.0); EOS # 0.1 K/uL (0.0-0.7); EOS % 0.9 % (0.0-4.0); HEMATOCRIT 32.7 % (34.0-47.0); LYMPH # 1.1 K/uL (1.0-4.3); LYMPH % 15.8 % (20.0-40.0); MEAN CELL VOLUME 79.5 fL (81.0-99.0); MEAN CORPUSCULAR HEMOGLOBIN 24.6 pg (27.0-31.0); MEAN PLATELET VOLUME 9.2 fL (7.2-11.7); MONO # 0.4 K/uL (0.0-0.8); MONO % 4.9 % (0.0-10.0); NRBC % 0.2 % (0.0-2.0); RED CELL DISTRIBUTION WIDTH 20.2 % (11.5-14.5); WHITE BLOOD COUNT 7.3 K/uL (4.8-10.8)
[2017-05-10 05:33] LABS: INR 1.2
[2017-05-10 06:02] LABS: BILIRUBIN,TOTAL 0.5 mg/dL (0.2-1.3); CALCIUM 8.2 mg/dl (8.6-10.4); POTASSIUM 3.8 mmol/L (3.6-5.2); TOTAL PROTEIN 8.7 g/dL (6.3-8.3)
[2017-05-10 06:13] LABS: ALB/GLOB RATIO 0.7 (1.0-2.1)
[2017-05-10 06:19] LABS: TROPONIN I 0.137 ng/mL (0.00-0.120)
[2017-05-10] MEDS ORDERED: Nitroglycerin 2% Ointment Foilpak UD TOP ONE (06:43)
[2017-05-10 08:06] LABS: RBC URINE 4 /hpf (0-3); URINE BACTERIA RARE (<OCC); URINE BILIRUBIN NEGATIVE (NEGATIVE); URINE BLOOD NEGATIVE (NEGATIVE); URINE COLOR Yellow (YELLOW); URINE GLUCOSE (UA) 3+ mg/dL (Normal); URINE KETONE NEGATIVE (NEGATIVE); URINE LEUKOCYTE ESTERASE TRACE Leu/uL (Negative); URINE PROTEIN 3+ mg/dL (NEGATIVE); URINE UROBILINOGEN NORMAL mg/dL (0.2-1.0); WBC URINE 15 /hpf (0-5)
--- NOTE | 2017-05-10 08:15 | RAD ---
PROCEDURE: CHEST RADIOGRAPH, 1 VIEW HISTORY: Shortness of breath COMPARISON: None available. FINDINGS: LUNGS: Moderate to severe venous congestion with patchy bibasilar airspace opacities. Moderate left pleural effusion. PLEURA: As above. CARDIOVASCULAR: Cardiomegaly. Calcification at the aortic knob. OSSEOUS STRUCTURES: Degenerative changes in the spine and shoulders. VISUALIZED UPPER ABDOMEN: Normal. OTHER FINDINGS: None. IMPRESSION: Moderate to severe venous congestion with patchy bibasilar airspace opacities. Moderate left pleural effusion. Cardiomegaly. Calcification at the aortic knob.
[2017-05-10] MEDS: Insulin Detemir 100 units/ml Vial (Levemir) SC SCH (08:46)
[2017-05-10] MEDS: (Novolog) Insulin Aspart, Recombinant 100 u/ml 10 ml vial SC SCH ×4 (08:46→22:00)
[2017-05-10] MEDS: Multiple Vitamins Tab PO SCH (09:37)
[2017-05-10] MEDS: Potassium Chloride 20 mEq ER Tab PO SCH (09:37)
[2017-05-10] MEDS: Pantoprazole 40 mg EC Tab PO SCH (09:38)
[2017-05-10] MEDS ORDERED: Pantoprazole 40 mg EC Tab PO SCH (10:00)
--- NOTE | 2017-05-10 18:12 | CARD ---
APPROVED REPORT EKG Measurement Heart [id number] MA 184P [id number] <Conclusion> Sinus tachycardia Nonspecific T wave abnormality Abnormal ECG
--- NOTE | 2017-05-10 21:27 | CP.PCM.CON ---
History of Present Illness - History of Present Illness History of Present Illness: CC: Increased dyspnea HPI: 82F with Hx of severe , CKD, A Fib, Dementia admitted with acute on Chronic diastolic CHF Patient responding to IV Lasix Patient still has difficulty speaking full sentences Review of Systems - EENT Eyes: absent: As Per HPI, Blind Spots, Blurred Vision, Change in Vision, Decreased Night Vision, Diplopia, Discharge, Dry Eye, Exophthalmos, Floaters, Irritation, Itchy Eyes, Loss of Peripheral Vision, Pain, Photophobia, Requires Corrective Lenses, Sees Flashes, Spots in Vision, Tunnel Vision, Other Visual Disturbances, Loss of Vision, Other Ears: absent: As Per HPI, Decreased Hearing, Ear Discharge, Ear Pain, Tinnitus, Abnormal Hearing, Disequilibrium, Dizziness, Other Nose/Mouth/Throat: absent: As Per HPI, Epistaxis, Nasal Congestion, Nasal Discharge, Nasal Obstruction, Nasal Trauma, Nose Pain, Post Nasal Drip, Sinus Pain, Sinus Pressure, Bleeding Gums, Change in Voice, Dental Pain, Dry Mouth, Dysphagia, Halitosis, Hoarsness, Lip Swelling, Mouth Lesions, Mouth Pain, Odynophagia, Sore Throat, Throat Swelling, Tongue Swelling, Facial Pain, Neck Pain, Neck Mass, Other - Cardiovascular Cardiovascular: Dyspnea - Respiratory Respiratory: Dyspnea - Gastrointestinal Gastrointestinal: absent: As Per HPI, Abdominal Pain, Belching, Bloating, Change in Bowel Habits, Change in Stool Character, Coffee Ground Emesis, Constipation, Cramping, Diarrhea, Dyspepsia, Dysphagia, Early Satiety, Excessive Flatus, Fecal Incontinence, Heartburn, Hematemesis, Hematochezia, Loose Stools, Melena, Nausea, Odynophagia, Temesmus, Vomiting, Other - Musculoskeletal Musculoskeletal: absent: As Per HPI, Abnormal Gait, Arthralgias, Atrophy, Back Pain, Deformity, Joint Swelling, Limited Range of Motion, Loss of Height, Muscle Cramps, Muscle Weakness, Myalgias, Neck Pain, Numbness, Radiating Pain into Limb, Stiffness, Tingling, Other - Hematologic/Lymphatic Hematologic: absent: As Per HPI, Easy Bleeding, Easy Bruising, Lymphadenopathy, Other Past Patient History - Infectious Disease Hx of Infectious Diseases: None - Past Medical History & Family History Past Medical History?: Yes - Past Social History Smoking Status: Never Smoked - CARDIAC Hx Atrial Fibrillation: Yes Hx Congestive Heart Failure: Yes Hx Heart Murmur: Yes Hx Hypertension: Yes - NEUROLOGICAL Hx Alzheimer's Disease: Yes Hx Dementia: Yes Hx Transient Ischemic Attacks (TIA): Yes - HEENT Hx HEENT Problems: Yes Hx Cataracts: Yes (right surgery 3yrs ago) - RENAL Hx Chronic Kidney Disease: No - ENDOCRINE/METABOLIC Hx Endocrine Disorders: Yes Hx Diabetes Mellitus Type 2: Yes - HEMATOLOGICAL/ONCOLOGICAL Hx Blood Disorders: No - INTEGUMENTARY Hx Dermatological Problems: No - MUSCULOSKELETAL/RHEUMATOLOGICAL Hx Falls: Yes - GASTROINTESTINAL Hx Gastrointestinal Disorders: No - GENITOURINARY/GYNECOLOGICAL Hx Genitourinary Disorders: Yes Hx Incontinence: Yes - PSYCHIATRIC Hx Substance Use: No - SURGICAL HISTORY Hx Coronary Stent: Yes - ANESTHESIA Hx Anesthesia: Yes Hx Anesthesia Reactions: No Hx Malignant Hyperthermia: No Meds Allergies/Adverse Reactions: Allergies Allergy/AdvReac Type Severity Reaction Status Date / Time latex Allergy ITCHING Verified 05/10/17 18:25 shrimp Allergy ITCHING Verified 05/10/17 18:25 shellfish Allergy ITCHING Uncoded 05/10/17 18:25 - Medications Medications: Current Medications Acetaminophen (Tylenol 325mg Tab) 325 mg PO Q4 PRN PRN Reason: Fever >100.4 F Apixaban (Eliquis) 2.5 mg PO BID [facility] Last Admin: 05/10/17 17:18 Dose: 2.5 mg Aspirin (Aspirin Chewable) 81 mg PO DAILY [facility] Last Admin: 05/10/17 09:37 Dose: 81 mg Furosemide (Lasix) 40 mg IVP DAILY [facility] Last Admin: 05/10/17 09:37 Dose: 40 mg Gabapentin (Neurontin) 100 mg PO DAILY [facility] Last Admin: 05/10/17 09:37 Dose: 100 mg Hydralazine HCl (Apresoline) 50 mg PO Q8 [facility] Insulin Aspart (Novolog) 0 unit SC ACHS [facility] PRN Reason: Protocol Last Admin: 05/10/17 16:27 Dose: 1 unit Insulin Detemir (Levemir) 5 unit SC ACB [facility] Last Admin: 05/10/17 08:46 Dose: 5 unit Metoprolol Tartrate (Lopressor) 50 mg PO Q12 [facility] Last Admin: 05/10/17 09:37 Dose: 50 mg Multivitamins (Hexavitamin) 1 tab PO DAILY [facility] Last Admin: 05/10/17 09:37 Dose: 1 tab Pantoprazole Sodium (Protonix Ec Tab) 40 mg PO DAILY [facility] Last Admin: 05/10/17 09:38 Dose: 40 mg Potassium Chloride (K-Dur 20 Meq Er Tab) 10 meq PO DAILY [facility] Last Admin: 05/10/17 09:37 Dose: 10 meq Prochlorperazine (Compazine Rectal Supp) 25 mg RC Q12 PRN PRN Reason: Constipation Rosuvastatin Calcium (Crestor) 10 mg PO [facility] Sitagliptin Phosphate (Januvia) 25 mg PO DAILY [facility] Last Admin: 05/10/17 09:37 Dose: 25 mg Physical Exam - Head Exam Head Exam: ATRAUMATIC - Eye Exam Eye Exam: EOMI, Normal appearance, PERRL - ENT Exam ENT Exam: Mucous Membranes Moist - Neck Exam Neck exam: Positive for: Normal Inspection - Respiratory Exam Respiratory Exam: Clear to Auscultation Bilateral - Cardiovascular Exam Cardiovascular Exam: REGULAR RHYTHM, +S1, +S2, Systolic Murmur - GI/Abdominal Exam GI & Abdominal Exam: Normal Bowel Sounds, Soft - Neurological Exam Neurological exam: Alert, CN II-XII Intact - Psychiatric Exam Psychiatric exam: Normal Mood Results - Vital Signs Recent Vital Signs: Last Vital Signs Temp 97.4 F L 05/10/17 16:00 Pulse 77 05/10/17 19:00 Resp 21 05/10/17 19:00 BP 169/73 H 05/10/17 18:57 Pulse Ox 100 05/10/17 19:00 - Labs Result Diagrams: 05/10/17 05:22 05/10/17 05:48 Labs: Laboratory Results - last 24 hr 05/10/17 05/10/17 05/10/17 05:20 05:22 05:22 WBC 7.3 RBC 4.11 Hgb 10.1 L Hct 32.7 L MCV 79.5 L D MCH 24.6 L MCHC 31.0 L RDW 20.2 H Plt Count 240 MPV 9.2 Neut % (Auto) 77.7 H Lymph % (Auto) 15.8 L [place] % (Auto) 4.9 Eos % (Auto) 0.9 Baso % (Auto) 0.7 Neut # 5.7 Lymph # 1.1 [place] # 0.4 Eos # 0.1 Baso # 0.1 PT 13.2 H INR 1.2 APTT 47 H Puncture Site Rb pCO2 56 H pO2 519 H HCO3 26.2 ABG pH 7.32 L ABG Total CO2 30.6 H ABG O2 Saturation 100.2 H ABG Base Excess 1.6 Maurilio Test Na ABG Potassium 3.8 A-a O2 Difference 124.0 Respiratory Index 0.2 Sodium 139.0 Chloride 114.0 H Glucose 257 H Lactate 0.6 L FiO2 100.0 Potassium Carbon Dioxide Anion Gap BUN Creatinine Est GFR ( Amer) Est GFR (Non-Af Amer) POC Glucose (mg/dL) Random Glucose Calcium Total Bilirubin AST ALT Alkaline Phosphatase Total Creatine Kinase CK-MB (Mass) Troponin I Troponin I, Quant NT-Pro-B Natriuret Pep Total Protein Albumin Globulin Albumin/Globulin Ratio Arterial Blood Potassium 3.8 Urine Color Urine Clarity Urine pH Ur Specific [place] Urine Protein Urine Glucose (UA) Urine Ketones Urine Blood Urine Nitrate Urine Bilirubin Urine Urobilinogen Ur Leukocyte Esterase Urine WBC (Auto) Urine RBC (Auto) Ur Squamous Epith Cells Urine Bacteria 05/10/17 05/10/17 05/10/17 05:48 07:40 08:25 WBC RBC Hgb Hct MCV MCH MCHC RDW Plt Count MPV Neut % (Auto) Lymph % (Auto) [place] % (Auto) Eos % (Auto) Baso % (Auto) Neut # Lymph # [place] # Eos # Baso # PT INR APTT Puncture Site pCO2 pO2 HCO3 ABG pH ABG Total CO2 ABG O2 Saturation ABG Base Excess Maurilio Test ABG Potassium A-a O2 Difference Respiratory Index Sodium 137 Chloride 104 Glucose Lactate FiO2 Potassium 3.8 Carbon Dioxide 26 Anion Gap 11 BUN 17 Creatinine 1.9 H Est GFR ( Amer) 31 Est GFR (Non-Af Amer) 25 POC Glucose (mg/dL) 185 H Random Glucose 234 H Calcium 8.2 L Total Bilirubin 0.5 AST 41 H D ALT 29 Alkaline Phosphatase 237 H D Total Creatine Kinase CK-MB (Mass) Troponin I 0.1370 H* Troponin I, Quant NT-Pro-B Natriuret Pep 16059 H Total Protein 8.7 H Albumin 3.6 Globulin 5.1 H Albumin/Globulin Ratio 0.7 L Arterial Blood Potassium Urine Color Yellow Urine Clarity Clear Urine pH 6.0 Ur Specific [place] 1.013 Urine Protein 3+ H Urine Glucose (UA) 3+ H Urine Ketones Negative Urine Blood Negative Urine Nitrate Negative Urine Bilirubin Negative Urine Urobilinogen Normal Ur Leukocyte Esterase Trace Urine WBC (Auto) 15 H Urine RBC (Auto) 4 H Ur Squamous Epith Cells 5 Urine Bacteria Rare 05/10/17 05/10/17 05/10/17 11:48 12:17 16:13 WBC RBC Hgb Hct MCV MCH MCHC RDW Plt Count MPV Neut % (Auto) Lymph % (Auto) [place] % (Auto) Eos % (Auto) Baso % (Auto) Neut # Lymph # [place] # Eos # Baso # PT INR APTT Puncture Site pCO2 pO2 HCO3 ABG pH ABG Total CO2 ABG O2 Saturation ABG Base Excess Maurilio Test ABG Potassium A-a O2 Difference Respiratory Index Sodium Chloride Glucose Lactate FiO2 Potassium Carbon Dioxide Anion Gap BUN Creatinine Est GFR ( Amer) Est GFR (Non-Af Amer) POC Glucose (mg/dL) 178 H 176 H Random Glucose Calcium Total Bilirubin AST ALT Alkaline Phosphatase Total Creatine Kinase 59 CK-MB (Mass) 1.47 Troponin I Troponin I, Quant 0.1070 NT-Pro-B Natriuret Pep Total Protein Albumin Globulin Albumin/Globulin Ratio Arterial Blood Potassium Urine Color Urine Clarity Urine pH Ur Specific [place] Urine Protein Urine Glucose (UA) Urine Ketones Urine Blood Urine Nitrate Urine Bilirubin Urine Urobilinogen Ur Leukocyte Esterase Urine WBC (Auto) Urine RBC (Auto) Ur Squamous Epith Cells Urine Bacteria 05/10/17 18:13 WBC RBC Hgb Hct MCV MCH MCHC RDW Plt Count MPV Neut % (Auto) Lymph % (Auto) [place] % (Auto) Eos % (Auto) Baso % (Auto) Neut # Lymph # [place] # Eos # Baso # PT INR APTT Puncture Site pCO2 pO2 HCO3 ABG pH ABG Total CO2 ABG O2 Saturation ABG Base Excess Maurilio Test ABG Potassium A-a O2 Difference Respiratory Index Sodium Chloride Glucose Lactate FiO2 Potassium Carbon Dioxide Anion Gap BUN Creatinine Est GFR ( Amer) Est GFR (Non-Af Amer) POC Glucose (mg/dL) Random Glucose Calcium Total Bilirubin AST ALT Alkaline Phosphatase Total Creatine Kinase 65 CK-MB (Mass) 1.53 Troponin I Troponin I, Quant 0.1020 NT-Pro-B Natriuret Pep Total Protein Albumin Globulin Albumin/Globulin Ratio Arterial Blood Potassium Urine Color Urine Clarity Urine pH Ur Specific [place] Urine Protein Urine Glucose (UA) Urine Ketones Urine Blood Urine Nitrate Urine Bilirubin Urine Urobilinogen Ur Leukocyte Esterase Urine WBC (Auto) Urine RBC (Auto) Ur Squamous Epith Cells Urine Bacteria Assessment & Plan - Assessment and Plan (Free Text) Assessment: 1. Severe symptomatic 2. Acute on Chronic diastolic CHF 3. CKD 4. Dementia Symptoms most likely secondary to Severe/critical Will consider TAVR after d/w Dr. Cooper and the family will continue current IV lasix
--- NOTE | 2017-05-10 23:38 | CP.PCM.HP ---
History of Present Illness - History of Present Illness History of Present Illness: CC: Increased dyspnea HPI: 82F with Hx of severe , CKD, A Fib, Dementia admitted with acute on Chronic diastolic CHF Patient responding to IV Lasix Patient still has difficulty speaking full sentences Present on Admission - Present on Admission Any Indicators Present on Admission: Yes Past Patient History - Infectious Disease Hx of Infectious Diseases: None - Past Medical History & Family History Past Medical History?: Yes - Past Social History Smoking Status: Never Smoked - CARDIAC Hx Atrial Fibrillation: Yes Hx Congestive Heart Failure: Yes Hx Heart Murmur: Yes Hx Hypertension: Yes - NEUROLOGICAL Hx Alzheimer's Disease: Yes Hx Dementia: Yes Hx Transient Ischemic Attacks (TIA): Yes - HEENT Hx HEENT Problems: Yes Hx Cataracts: Yes (right surgery 3yrs ago) - RENAL Hx Chronic Kidney Disease: No - ENDOCRINE/METABOLIC Hx Endocrine Disorders: Yes Hx Diabetes Mellitus Type 2: Yes - HEMATOLOGICAL/ONCOLOGICAL Hx Blood Disorders: No - INTEGUMENTARY Hx Dermatological Problems: No - MUSCULOSKELETAL/RHEUMATOLOGICAL Hx Falls: Yes - GASTROINTESTINAL Hx Gastrointestinal Disorders: No - GENITOURINARY/GYNECOLOGICAL Hx Genitourinary Disorders: Yes Hx Incontinence: Yes - PSYCHIATRIC Hx Substance Use: No - SURGICAL HISTORY Hx Coronary Stent: Yes - ANESTHESIA Hx Anesthesia: Yes Hx Anesthesia Reactions: No Hx Malignant Hyperthermia: No Meds Allergies/Adverse Reactions: Allergies Allergy/AdvReac Type Severity Reaction Status Date / Time latex Allergy ITCHING Verified 05/10/17 18:25 shrimp Allergy ITCHING Verified 05/10/17 18:25 shellfish Allergy ITCHING Uncoded 05/10/17 18:25 Physical Exam - Constitutional Appears: No Acute Distress - Head Exam Head Exam: ATRAUMATIC, NORMAL INSPECTION, NORMOCEPHALIC - Eye Exam Eye Exam: EOMI, Normal appearance, PERRL Pupil Exam: NORMAL ACCOMODATION, PERRL - Respiratory Exam Respiratory Exam: Decreased Breath Sounds, Rales, Rhonchi - Cardiovascular Exam Cardiovascular Exam: REGULAR RHYTHM, +S1, +S2, Systolic Murmur - GI/Abdominal Exam GI & Abdominal Exam: Normal Bowel Sounds, Soft. absent: Tenderness Results - Vital Signs Recent Vital Signs: Last Vital Signs Temp 97.4 F L 05/10/17 16:00 Pulse 105 H 05/10/17 23:13 Resp 23 05/10/17 23:13 BP 176/105 H 05/10/17 23:13 Pulse Ox 100 05/10/17 23:13 - Labs Result Diagrams: 05/12/17 06:11 05/12/17 06:11 Labs: Laboratory Results - last 24 hr 05/10/17 05/10/17 05/10/17 05:20 05:22 05:22 WBC 7.3 RBC 4.11 Hgb 10.1 L Hct 32.7 L MCV 79.5 L D MCH 24.6 L MCHC 31.0 L RDW 20.2 H Plt Count 240 MPV 9.2 Neut % (Auto) 77.7 H Lymph % (Auto) 15.8 L [place] % (Auto) 4.9 Eos % (Auto) 0.9 Baso % (Auto) 0.7 Neut # 5.7 Lymph # 1.1 [place] # 0.4 Eos # 0.1 Baso # 0.1 PT 13.2 H INR 1.2 APTT 47 H Puncture Site Rb pCO2 56 H pO2 519 H HCO3 26.2 ABG pH 7.32 L ABG Total CO2 30.6 H ABG O2 Saturation 100.2 H ABG Base Excess 1.6 Maurilio Test Na ABG Potassium 3.8 A-a O2 Difference 124.0 Respiratory Index 0.2 Sodium 139.0 Chloride 114.0 H Glucose 257 H Lactate 0.6 L FiO2 100.0 Potassium Carbon Dioxide Anion Gap BUN Creatinine Est GFR ( Amer) Est GFR (Non-Af Amer) POC Glucose (mg/dL) Random Glucose Calcium Total Bilirubin AST ALT Alkaline Phosphatase Total Creatine Kinase CK-MB (Mass) Troponin I Troponin I, Quant NT-Pro-B Natriuret Pep Total Protein Albumin Globulin Albumin/Globulin Ratio Arterial Blood Potassium 3.8 Urine Color Urine Clarity Urine pH Ur Specific [place] Urine Protein Urine Glucose (UA) Urine Ketones Urine Blood Urine Nitrate Urine Bilirubin Urine Urobilinogen Ur Leukocyte Esterase Urine WBC (Auto) Urine RBC (Auto) Ur Squamous Epith Cells Urine Bacteria 05/10/17 05/10/17 05/10/17 05:48 07:40 08:25 WBC RBC Hgb Hct MCV MCH MCHC RDW Plt Count MPV Neut % (Auto) Lymph % (Auto) [place] % (Auto) Eos % (Auto) Baso % (Auto) Neut # Lymph # [place] # Eos # Baso # PT INR APTT Puncture Site pCO2 pO2 HCO3 ABG pH ABG Total CO2 ABG O2 Saturation ABG Base Excess Maurilio Test ABG Potassium A-a O2 Difference Respiratory Index Sodium 137 Chloride 104 Glucose Lactate FiO2 Potassium 3.8 Carbon Dioxide 26 Anion Gap 11 BUN 17 Creatinine 1.9 H Est GFR ( Amer) 31 Est GFR (Non-Af Amer) 25 POC Glucose (mg/dL) 185 H Random Glucose 234 H Calcium 8.2 L Total Bilirubin 0.5 AST 41 H D ALT 29 Alkaline Phosphatase 237 H D Total Creatine Kinase CK-MB (Mass) Troponin I 0.1370 H* Troponin I, Quant NT-Pro-B Natriuret Pep 83203 H Total Protein 8.7 H Albumin 3.6 Globulin 5.1 H Albumin/Globulin Ratio 0.7 L Arterial Blood Potassium Urine Color Yellow Urine Clarity Clear Urine pH 6.0 Ur Specific [place] 1.013 Urine Protein 3+ H Urine Glucose (UA) 3+ H Urine Ketones Negative Urine Blood Negative Urine Nitrate Negative Urine Bilirubin Negative Urine Urobilinogen Normal Ur Leukocyte Esterase Trace Urine WBC (Auto) 15 H Urine RBC (Auto) 4 H Ur Squamous Epith Cells 5 Urine Bacteria Rare 05/10/17 05/10/17 05/10/17 11:48 12:17 16:13 WBC RBC Hgb Hct MCV MCH MCHC RDW Plt Count MPV Neut % (Auto) Lymph % (Auto) [place] % (Auto) Eos % (Auto) Baso % (Auto) Neut # Lymph # [place] # Eos # Baso # PT INR APTT Puncture Site pCO2 pO2 HCO3 ABG pH ABG Total CO2 ABG O2 Saturation ABG Base Excess Maurilio Test ABG Potassium A-a O2 Difference Respiratory Index Sodium Chloride Glucose Lactate FiO2 Potassium Carbon Dioxide Anion Gap BUN Creatinine Est GFR ( Amer) Est GFR (Non-Af Amer) POC Glucose (mg/dL) 178 H 176 H Random Glucose Calcium Total Bilirubin AST ALT Alkaline Phosphatase Total Creatine Kinase 59 CK-MB (Mass) 1.47 Troponin I Troponin I, Quant 0.1070 NT-Pro-B Natriuret Pep Total Protein Albumin Globulin Albumin/Globulin Ratio Arterial Blood Potassium Urine Color Urine Clarity Urine pH Ur Specific [place] Urine Protein Urine Glucose (UA) Urine Ketones Urine Blood Urine Nitrate Urine Bilirubin Urine Urobilinogen Ur Leukocyte Esterase Urine WBC (Auto) Urine RBC (Auto) Ur Squamous Epith Cells Urine Bacteria 11/17/17 11/17/17 18:13 21:30 WBC RBC Hgb Hct MCV MCH MCHC RDW Plt Count MPV Neut % (Auto) Lymph % (Auto) [place] % (Auto) Eos % (Auto) Baso % (Auto) Neut # Lymph # [place] # Eos # Baso # PT INR APTT Puncture Site pCO2 pO2 HCO3 ABG pH ABG Total CO2 ABG O2 Saturation ABG Base Excess Maurilio Test ABG Potassium A-a O2 Difference Respiratory Index Sodium Chloride Glucose Lactate FiO2 Potassium Carbon Dioxide Anion Gap BUN Creatinine Est GFR ( Amer) Est GFR (Non-Af Amer) POC Glucose (mg/dL) 161 H Random Glucose Calcium Total Bilirubin AST ALT Alkaline Phosphatase Total Creatine Kinase 65 CK-MB (Mass) 1.53 Troponin I Troponin I, Quant 0.1020 NT-Pro-B Natriuret Pep Total Protein Albumin Globulin Albumin/Globulin Ratio Arterial Blood Potassium Urine Color Urine Clarity Urine pH Ur Specific [place] Urine Protein Urine Glucose (UA) Urine Ketones Urine Blood Urine Nitrate Urine Bilirubin Urine Urobilinogen Ur Leukocyte Esterase Urine WBC (Auto) Urine RBC (Auto) Ur Squamous Epith Cells Urine Bacteria Assessment & Plan (1) Acute exacerbation of CHF (congestive heart failure) Status: Acute (2) Dyspnea Status: Acute (3) Leg edema Status: Acute (4) NSTEMI (non-ST elevated myocardial infarction) Status: Acute (5) AD (Alzheimer's disease) Status: Acute (6) Accelerated hypertension Status: Acute (7) Aortic stenosis, moderate Status: Acute
[2017-05-11] MEDS ORDERED: Metoprolol 1 mg/ml Inj IVP ONE (03:28)
[2017-05-11] MEDS ORDERED: Albuterol-Ipratrop 3 mg / 0.5 (3 ml) UD INH STA (06:51)
[2017-05-11] MEDS ORDERED: Nitroglycerin 50mg in D5W 50 MG/250 ML BOTTLE IV ONE ×2 (07:16→07:38)
[2017-05-11] MEDS: Insulin Detemir 100 units/ml Vial (Levemir) SC SCH (08:00)
[2017-05-11] MEDS: (Novolog) Insulin Aspart, Recombinant 100 u/ml 10 ml vial SC SCH ×6 (08:25→23:59)
--- NOTE | 2017-05-11 08:34 | RAD ---
Chest x-ray single frontal view History: Rhonchi. Comparison: 05/10/2017 Findings: Moderate to severe venous congestion with prominent patchy airspace opacities within the mid to lower lung zones with moderate bilateral pleural effusions. Cardiomegaly. Calcification at the aortic knob. Left lung apex obscured by the patient's chin. Degenerative changes in the spine and shoulders. Impression: Moderate to severe congestive heart failure.
--- NOTE | 2017-05-11 10:15 | CP.PCM.CON ---
History of Present Illness - History of Present Illness History of Present Illness: Chief complaint: Shortness of breath History of present illness: 82-year-old female with a history of severe aortic stenosis, chronic renal failure, A. fib, dementia, admitted with heart failure. The patient initially admitted to the telemetry, patient developed worsening shortness of breath last night. 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 Patient is also having elevated blood pressure. She is spotting. She denies any chest pain. Shortness of breath noted. She is moving all for eczematous Past medical history: severe aortic stenosis, chronic renal insufficiency, atrial fibrillation, dementia Surgical history: No definite chart Allergic to latex. Past surgical history not available, but it seems to be not a smoker Family history noncontributory Review of systems noted Patient is currently on BiPAP. Respiratory good stability. Elevated blood pressure noted. Abdominal breathing noted. Leg swelling noted Vital signs reviewed Neck venous distention noted Decreased bilateral air entry noted Systolic heart murmur noted Abdomen soft, nontender. Patient is having bilateral leg swelling Labs reviewed Today's labs not available Chest x-ray showing increasing bilateral congestion TAPPER SHANK alert awake oriented -3, no functional neurological deficit Labs ordered today. Assessment and recommendation: 89-year-old female with history of aortic stenosis, renal insufficiency, hypertension, CAD, atrial fibrillation. Patient is currently on anticoagulation patient is currently having acute decompensated systolic heart failure. Currently on BiPAP. Nitroglycerin drip. Responding at this time. We'll repeat the blood gas analysis. 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 Will follow the patient Past Patient History - Infectious Disease Hx of Infectious Diseases: None - Past Medical History & Family History Past Medical History?: Yes - Past Social History Smoking Status: Never Smoked - CARDIAC Hx Atrial Fibrillation: Yes Hx Congestive Heart Failure: Yes Hx Heart Murmur: Yes Hx Hypertension: Yes - NEUROLOGICAL Hx Alzheimer's Disease: Yes Hx Dementia: Yes Hx Transient Ischemic Attacks (TIA): Yes - HEENT Hx HEENT Problems: Yes Hx Cataracts: Yes (right surgery 3yrs ago) - RENAL Hx Chronic Kidney Disease: No - ENDOCRINE/METABOLIC Hx Endocrine Disorders: Yes Hx Diabetes Mellitus Type 2: Yes - HEMATOLOGICAL/ONCOLOGICAL Hx Blood Disorders: No - INTEGUMENTARY Hx Dermatological Problems: No - MUSCULOSKELETAL/RHEUMATOLOGICAL Hx Falls: Yes - GASTROINTESTINAL Hx Gastrointestinal Disorders: No - GENITOURINARY/GYNECOLOGICAL Hx Genitourinary Disorders: Yes Hx Incontinence: Yes - PSYCHIATRIC Hx Substance Use: No - SURGICAL HISTORY Hx Coronary Stent: Yes - ANESTHESIA Hx Anesthesia: Yes Hx Anesthesia Reactions: No Hx Malignant Hyperthermia: No Meds Allergies/Adverse Reactions: Allergies Allergy/AdvReac Type Severity Reaction Status Date / Time latex Allergy ITCHING Verified 05/10/17 18:25 shrimp Allergy ITCHING Verified 05/10/17 18:25 shellfish Allergy ITCHING Uncoded 05/10/17 18:25 - Medications Medications: Current Medications Acetaminophen (Tylenol 325mg Tab) 325 mg PO Q4 PRN PRN Reason: Fever >100.4 F Apixaban (Eliquis) 2.5 mg PO BID [facility] Last Admin: 05/10/17 17:18 Dose: 2.5 mg Aspirin (Aspirin Chewable) 81 mg PO DAILY [facility] Last Admin: 05/10/17 09:37 Dose: 81 mg Furosemide (Lasix) 40 mg IVP DAILY [facility] Last Admin: 05/10/17 09:37 Dose: 40 mg Gabapentin (Neurontin) 100 mg PO DAILY [facility] Last Admin: 05/10/17 09:37 Dose: 100 mg Hydralazine HCl (Apresoline) 50 mg PO Q8 [facility] Last Admin: 05/11/17 06:23 Dose: 50 mg Nitroglycerin/Dextrose (Nitroglycerin 50 Mg/250 Ml D5w) 50 mg in 250 mls @ 3 mls/hr IV .Q24H ONE; 10 MCG/MIN PRN Reason: Protocol Stop: 05/12/17 07:15 Last Admin: 05/11/17 08:18 Dose: 10 mcg/min, 3 mls/hr Insulin Aspart (Novolog) 0 unit SC ACHS [facility] PRN Reason: Protocol Last Admin: 05/11/17 08:25 Dose: 2 unit Insulin Detemir (Levemir) 5 unit SC ACB [facility] Last Admin: 05/10/17 08:46 Dose: 5 unit Metoprolol Tartrate (Lopressor) 50 mg PO Q12 [facility] Last Admin: 05/10/17 22:32 Dose: 50 mg Multivitamins (Hexavitamin) 1 tab PO DAILY [facility] Last Admin: 05/10/17 09:37 Dose: 1 tab Pantoprazole Sodium (Protonix Ec Tab) 40 mg PO DAILY [facility] Last Admin: 05/10/17 09:38 Dose: 40 mg Potassium Chloride (K-Dur 20 Meq Er Tab) 10 meq PO DAILY [facility] Last Admin: 05/10/17 09:37 Dose: 10 meq Prochlorperazine (Compazine Rectal Supp) 25 mg RC Q12 PRN PRN Reason: Constipation Rosuvastatin Calcium (Crestor) 10 mg PO HS [facility] Last Admin: 05/10/17 22:32 Dose: 10 mg Sitagliptin Phosphate (Januvia) 25 mg PO DAILY [facility] Last Admin: 05/10/17 09:37 Dose: 25 mg Results - Vital Signs Recent Vital Signs: Last Vital Signs Temp 97.5 F L 05/11/17 08:00 Pulse 110 H 05/11/17 09:52 Resp 19 05/11/17 09:00 BP 160/86 H 05/11/17 09:00 Pulse Ox 100 05/11/17 09:00 - Labs Result Diagrams: 05/10/17 05:22 05/10/17 05:48 Labs: Laboratory Results - last 24 hr 05/10/17 05/10/17 05/10/17 11:48 12:17 16:13 POC Glucose (mg/dL) 178 H 176 H Total Creatine Kinase 59 CK-MB (Mass) 1.47 Troponin I, Quant 0.1070 05/10/17 05/10/17 18:13 21:30 POC Glucose (mg/dL) 161 H Total Creatine Kinase 65 CK-MB (Mass) 1.53 Troponin I, Quant 0.1020
[2017-05-11] MEDS: Potassium Chloride 20 mEq ER Tab PO SCH (10:27)
[2017-05-11] MEDS: Pantoprazole 40 mg EC Tab PO SCH (10:28)
[2017-05-11] MEDS: Multiple Vitamins Tab PO SCH (10:28)
[2017-05-11 11:19] LABS: ABG ALLEN TEST POS; ABG MECHANICAL RATE 14; DRAW SITE R/RAD
[2017-05-11 11:49] LABS: BASO % 0.3 % (0.0-2.0); EOS % 0.5 % (0.0-4.0); HEMATOCRIT 31.8 % (34.0-47.0); LYMPH # 0.8 K/uL (1.0-4.3); LYMPH % 11.8 % (20.0-40.0); MEAN CORPUSCULAR HGB CONC 31.2 g/dL (33.0-37.0); MEAN PLATELET VOLUME 9.1 fL (7.2-11.7); MONO # 0.3 K/uL (0.0-0.8); MONO % 5.2 % (0.0-10.0); NRBC % 0.1 % (0.0-2.0); RED CELL DISTRIBUTION WIDTH 20.3 % (11.5-14.5); WHITE BLOOD COUNT 6.7 K/uL (4.8-10.8)
[2017-05-11 12:07] LABS: ALB/GLOB RATIO 0.7 (1.0-2.1); BILIRUBIN,TOTAL 0.5 mg/dL (0.2-1.3); CALCIUM 8.5 mg/dl (8.6-10.4); POTASSIUM 4.1 mmol/L (3.6-5.2); TOTAL PROTEIN 8.9 g/dL (6.3-8.3)
[2017-05-11 12:17] LABS: TROPONIN I 0.118 ng/mL (0.00-0.120)
--- NOTE | 2017-05-11 23:11 | CP.PCM.PN ---
Subjective - Date & Time of Evaluation Date of Evaluation: 05/11/17 Time of Evaluation: 13:05 - Subjective Subjective: Patient seen and evaluated Feels somewhat better No chest pain Review of Systems - EENT Eyes: absent: As Per HPI, Blind Spots, Blurred Vision, Change in Vision, Decreased Night Vision, Diplopia, Discharge, Dry Eye, Exophthalmos, Floaters, Irritation, Itchy Eyes, Loss of Peripheral Vision, Pain, Photophobia, Requires Corrective Lenses, Sees Flashes, Spots in Vision, Tunnel Vision, Other Visual Disturbances, Loss of Vision, Other Ears: absent: As Per HPI, Decreased Hearing, Ear Discharge, Ear Pain, Tinnitus, Abnormal Hearing, Disequilibrium, Dizziness, Other Nose/Mouth/Throat: absent: As Per HPI, Epistaxis, Nasal Congestion, Nasal Discharge, Nasal Obstruction, Nasal Trauma, Nose Pain, Post Nasal Drip, Sinus Pain, Sinus Pressure, Bleeding Gums, Change in Voice, Dental Pain, Dry Mouth, Dysphagia, Halitosis, Hoarsness, Lip Swelling, Mouth Lesions, Mouth Pain, Odynophagia, Sore Throat, Throat Swelling, Tongue Swelling, Facial Pain, Neck Pain, Neck Mass, Other - Cardiovascular Cardiovascular: Dyspnea - Respiratory Respiratory: Dyspnea - Gastrointestinal Gastrointestinal: absent: As Per HPI, Abdominal Pain, Belching, Bloating, Change in Bowel Habits, Change in Stool Character, Coffee Ground Emesis, Constipation, Cramping, Diarrhea, Dyspepsia, Dysphagia, Early Satiety, Excessive Flatus, Fecal Incontinence, Heartburn, Hematemesis, Hematochezia, Loose Stools, Melena, Nausea, Odynophagia, Temesmus, Vomiting, Other - Musculoskeletal Musculoskeletal: absent: As Per HPI, Abnormal Gait, Arthralgias, Atrophy, Back Pain, Deformity, Joint Swelling, Limited Range of Motion, Loss of Height, Muscle Cramps, Muscle Weakness, Myalgias, Neck Pain, Numbness, Radiating Pain into Limb, Stiffness, Tingling, Other - Hematologic/Lymphatic Hematologic: absent: As Per HPI, Easy Bleeding, Easy Bruising, Lymphadenopathy, Other Physical Exam - Head Exam Head Exam: ATRAUMATIC - Eye Exam Eye Exam: EOMI, Normal appearance, PERRL - ENT Exam ENT Exam: Mucous Membranes Moist - Neck Exam Neck exam: Positive for: Normal Inspection - Respiratory Exam Respiratory Exam: Clear to Auscultation Bilateral - Cardiovascular Exam Cardiovascular Exam: REGULAR RHYTHM, +S1, +S2, Systolic Murmur - GI/Abdominal Exam GI & Abdominal Exam: Normal Bowel Sounds, Soft - Neurological Exam Neurological exam: Alert, CN II-XII Intact - Psychiatric Exam Psychiatric exam: Normal Mood Objective - Vital Signs/Intake and Output Vital Signs (last 24 hours): Temp Pulse Resp BP Pulse Ox 98.4 F 105 H 20 142/89 100 05/11/17 16:44 05/11/17 18:00 05/11/17 18:00 05/11/17 18:07 05/11/17 18:00 Intake and Output: 05/11/17 05/12/17 18:59 06:59 Intake Total 855.5 Output Total 800 Balance 55.5 - Medications Medications: Current Medications Acetaminophen (Tylenol 325mg Tab) 325 mg PO Q4 PRN PRN Reason: Fever >100.4 F Apixaban (Eliquis) 2.5 mg PO BID [facility] Last Admin: 05/11/17 18:07 Dose: 2.5 mg Aspirin (Aspirin Chewable) 81 mg PO DAILY [facility] Last Admin: 05/11/17 10:27 Dose: 81 mg Furosemide (Lasix) 40 mg IVP BID [facility] Last Admin: 05/11/17 18:07 Dose: 40 mg Gabapentin (Neurontin) 100 mg PO DAILY [facility] Last Admin: 05/11/17 10:28 Dose: 100 mg Hydralazine HCl (Apresoline) 100 mg PO Q8 [facility] Last Admin: 05/11/17 14:21 Dose: 100 mg Nitroglycerin/Dextrose (Nitroglycerin 50 Mg/250 Ml D5w) 50 mg in 250 mls @ 3 mls/hr IV .Q24H ONE; 10 MCG/MIN PRN Reason: Protocol Stop: 05/12/17 07:15 Last Titration: 05/11/17 17:00 Dose: 10 mcg/min, 3 mls/hr Insulin Aspart (Novolog) 0 unit SC ACHS [facility] PRN Reason: Protocol Last Admin: 05/11/17 18:07 Dose: 1 unit Insulin Detemir (Levemir) 5 unit SC ACB [facility] Last Admin: 05/11/17 08:00 Dose: Not Given Metoprolol Tartrate (Lopressor) 50 mg PO Q12 [facility] Last Admin: 05/11/17 10:28 Dose: 50 mg Multivitamins (Hexavitamin) 1 tab PO DAILY [facility] Last Admin: 05/11/17 10:28 Dose: 1 tab Pantoprazole Sodium (Protonix Ec Tab) 40 mg PO DAILY [facility] Last Admin: 05/11/17 10:28 Dose: 40 mg Potassium Chloride (K-Dur 20 Meq Er Tab) 10 meq PO DAILY [facility] Last Admin: 05/11/17 10:27 Dose: 10 meq Prochlorperazine (Compazine Rectal Supp) 25 mg RC Q12 PRN PRN Reason: Constipation Rosuvastatin Calcium (Crestor) 10 mg PO [facility] Last Admin: 05/10/17 22:32 Dose: 10 mg Sitagliptin Phosphate (Januvia) 25 mg PO DAILY [facility] Last Admin: 05/11/17 10:00 Dose: Not Given - Labs Labs: 05/11/17 11:30 05/11/17 11:30 PT 13.2 SECONDS (9.7-12.2) H 05/10/17 05:22 INR 1.2 05/10/17 05:22 APTT 47 SECONDS (21-34) H 05/10/17 05:22 Assessment and Plan - Assessment and Plan (Free Text) Assessment: 1. symptomatic severe 2. Diastolic CHF 3. CKD Will pursue TAVR after d/w the daughter
--- NOTE | 2017-05-11 23:17 | CP.PCM.PN ---
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 Objective - Vital Signs/Intake and Output Vital Signs (last 24 hours): Temp Pulse Resp BP Pulse Ox 98.4 F 105 H 20 142/89 100 05/11/17 16:44 05/11/17 18:00 05/11/17 18:00 05/11/17 18:07 05/11/17 18:00 Intake and Output: 05/11/17 05/12/17 18:59 06:59 Intake Total 855.5 Output Total 800 Balance 55.5 - Medications Medications: Current Medications Acetaminophen (Tylenol 325mg Tab) 325 mg PO Q4 PRN PRN Reason: Fever >100.4 F Apixaban (Eliquis) 2.5 mg PO BID [facility] Last Admin: 05/11/17 18:07 Dose: 2.5 mg Aspirin (Aspirin Chewable) 81 mg PO DAILY [facility] Last Admin: 05/11/17 10:27 Dose: 81 mg Furosemide (Lasix) 40 mg IVP BID [facility] Last Admin: 05/11/17 18:07 Dose: 40 mg Gabapentin (Neurontin) 100 mg PO DAILY [facility] Last Admin: 05/11/17 10:28 Dose: 100 mg Hydralazine HCl (Apresoline) 100 mg PO Q8 [facility] Last Admin: 05/11/17 14:21 Dose: 100 mg Nitroglycerin/Dextrose (Nitroglycerin 50 Mg/250 Ml D5w) 50 mg in 250 mls @ 3 mls/hr IV .Q24H ONE; 10 MCG/MIN PRN Reason: Protocol Stop: 05/12/17 07:15 Last Titration: 05/11/17 17:00 Dose: 10 mcg/min, 3 mls/hr Insulin Aspart (Novolog) 0 unit SC ACHS [facility] PRN Reason: Protocol Last Admin: 05/11/17 18:07 Dose: 1 unit Insulin Detemir (Levemir) 5 unit SC ACB [facility] Last Admin: 05/11/17 08:00 Dose: Not Given Metoprolol Tartrate (Lopressor) 50 mg PO Q12 [facility] Last Admin: 05/11/17 10:28 Dose: 50 mg Multivitamins (Hexavitamin) 1 tab PO DAILY [facility] Last Admin: 05/11/17 10:28 Dose: 1 tab Pantoprazole Sodium (Protonix Ec Tab) 40 mg PO DAILY [facility] Last Admin: 05/11/17 10:28 Dose: 40 mg Potassium Chloride (K-Dur 20 Meq Er Tab) 10 meq PO DAILY [facility] Last Admin: 05/11/17 10:27 Dose: 10 meq Prochlorperazine (Compazine Rectal Supp) 25 mg RC Q12 PRN PRN Reason: Constipation Rosuvastatin Calcium (Crestor) 10 mg PO HS [facility] Last Admin: 05/10/17 22:32 Dose: 10 mg Sitagliptin Phosphate (Januvia) 25 mg PO DAILY [facility] Last Admin: 05/11/17 10:00 Dose: Not Given - Labs Labs: 05/11/17 11:30 05/11/17 11:30 PT 13.2 SECONDS (9.7-12.2) H 05/10/17 05:22 INR 1.2 05/10/17 05:22 APTT 47 SECONDS (21-34) H 05/10/17 05:22 - Constitutional Appears: No Acute Distress - Head Exam Head Exam: ATRAUMATIC, NORMAL INSPECTION, NORMOCEPHALIC - Respiratory Exam Respiratory Exam: Decreased Breath Sounds, Rales - Cardiovascular Exam Cardiovascular Exam: +S1, +S2, Murmur - GI/Abdominal Exam GI & Abdominal Exam: Soft, Normal Bowel Sounds. absent: Tenderness Assessment and Plan (1) Acute exacerbation of CHF (congestive heart failure) Status: Acute (2) Dyspnea Status: Acute (3) AD (Alzheimer's disease) Status: Acute (4) Accelerated hypertension Status: Acute (5) Aortic stenosis, moderate Status: Acute
[2017-05-12 06:16] LABS: BASO % 0.5 % (0.0-2.0); EOS # 0.1 K/uL (0.0-0.7); HEMATOCRIT 29.9 % (34.0-47.0); LYMPH % 14.3 % (20.0-40.0); MEAN CELL VOLUME 79.5 fL (81.0-99.0); MEAN CORPUSCULAR HEMOGLOBIN 24.4 pg (27.0-31.0); MEAN CORPUSCULAR HGB CONC 30.6 g/dL (33.0-37.0); MEAN PLATELET VOLUME 9.5 fL (7.2-11.7); MONO # 0.4 K/uL (0.0-0.8); MONO % 5.5 % (0.0-10.0); RED CELL DISTRIBUTION WIDTH 19.7 % (11.5-14.5); WHITE BLOOD COUNT 7.1 K/uL (4.8-10.8)
[2017-05-12 06:36] LABS: ALB/GLOB RATIO 0.7 (1.0-2.1); BILIRUBIN,TOTAL 0.5 mg/dL (0.2-1.3); CALCIUM 8.2 mg/dl (8.6-10.4); MAGNESIUM 1.6 mg/dL (1.6-2.3); PHOSPHOROUS 3.7 mg/dL (2.5-4.5); POTASSIUM 4.4 mmol/L (3.6-5.2); TOTAL PROTEIN 8.6 g/dL (6.3-8.3)
[2017-05-12] MEDS: Insulin Detemir 100 units/ml Vial (Levemir) SC SCH (08:47)
[2017-05-12] MEDS: (Novolog) Insulin Aspart, Recombinant 100 u/ml 10 ml vial SC SCH ×4 (08:48→22:25)
[2017-05-12] MEDS: Multiple Vitamins Tab PO SCH (09:36)
[2017-05-12] MEDS: Pantoprazole 40 mg EC Tab PO SCH (09:36)
[2017-05-12] MEDS: Potassium Chloride 20 mEq ER Tab PO SCH (09:37)
--- NOTE | 2017-05-12 13:59 | CP.CCUPN ---
CCU Subjective - Physician Review Events Since Last Encounter (Free Text): 05/12/17 13:51 Patient seen and examined in the intensive care unit. 82-year-old female with history of severe aortic stenosis, chronic renal insufficiency, atrial fibrillation was transferred to ICU with congestive heart failure. Patient initially was placed on BiPAP and received Lasix 160 mg. Patient breathing better and is off BiPAP now Patient seen by cardiology and the plan is cardiac cath and possible TAVR CCU Objective - Vital Signs / Intake & Output Vital Signs (Last 4 hours): Vital Signs Temp Pulse Resp BP Pulse Ox 05/12/17 13:00 109 H 24 100 05/12/17 12:42 110 H 23 141/72 100 05/12/17 12:00 97.3 F L 109 H 24 100 05/12/17 11:42 108 H 24 139/83 100 05/12/17 11:28 79 100 05/12/17 11:00 106 H 22 05/12/17 10:42 87 22 108/50 L 100 05/12/17 10:00 110 H 22 100 Intake and Output (Last 8hrs): Intake & Output 05/11/17 05/12/17 05/12/17 22:59 06:59 14:59 Intake Total 374 39 170 Output Total 1200 200 200 Balance -826 -161 -30 Weight 188 lb 8 oz Intake: IV 51 Intake, IV Amount 33 39 Left Forearm 33 39 Oral 290 0 170 Output: Urine 1200 200 200 Urine, Voided 1200 200 200 - Physical Exam Head: Positive for: Atraumatic, Normocephalic Conjunctiva: Positive for: Normal Mouth: Positive for: Moist Mucous Membranes Neck: Positive for: Trachea Midline Respiratory/Chest: Positive for: Rales Cardiovascular: Positive for: Irregular Rhythm Abdomen: Positive for: Normal Bowel Sounds Upper Extremity: Positive for: Normal Inspection Lower Extremity: Positive for: Normal Inspection Psychiatric: Positive for: Alert - Medications Active Medications: Active Medications Generic Name Dose Route Start Last Admin Trade Name Freq PRN Reason Stop Dose Admin Acetaminophen 325 mg 05/10/17 06:59 Tylenol 325mg Tab PO Q4 PRN Fever >100.4 F Apixaban 2.5 mg 05/10/17 10:00 05/12/17 09:36 Eliquis PO 2.5 mg BID MASTER Administration Aspirin 81 mg 05/10/17 10:00 05/12/17 09:36 Aspirin Chewable PO 81 mg DAILY MASTER Administration Furosemide 40 mg 05/11/17 18:00 05/12/17 09:37 Lasix IVP 40 mg BID MASTER Administration Gabapentin 100 mg 05/10/17 10:00 05/12/17 09:36 Neurontin PO 100 mg DAILY MASTER Administration Hydralazine HCl 100 mg 05/11/17 11:16 05/12/17 07:44 Apresoline PO Not Given Q8 MASTER Insulin Aspart 0 unit 05/10/17 07:30 05/12/17 11:42 Novolog SC Not Given ACHS [facility] Protocol Insulin Detemir 5 unit 05/10/17 07:30 05/12/17 08:47 Levemir SC 5 unit ACB MASTER Administration Metoprolol Tartrate 50 mg 05/10/17 10:00 05/12/17 09:36 Lopressor PO 50 mg Q12 MASTER Administration Multivitamins 1 tab 05/10/17 10:00 05/12/17 09:36 Hexavitamin PO 1 tab DAILY MASTER Administration Pantoprazole Sodium 40 mg 05/10/17 10:00 05/12/17 09:36 Protonix Ec Tab PO 40 mg DAILY MASTER Administration Potassium Chloride 10 meq 05/10/17 10:00 05/12/17 09:37 K-Dur 20 Meq Er Tab PO 10 meq DAILY MASTER Administration Prochlorperazine 25 mg 05/10/17 06:59 Compazine Rectal Supp RC Q12 PRN Constipation Rosuvastatin Calcium 10 mg 05/10/17 22:00 05/11/17 23:56 Crestor PO 10 mg HS MASTER Administration Sitagliptin Phosphate 25 mg 05/10/17 10:00 05/12/17 09:36 Januvia PO 25 mg DAILY MASTER Administration - Patient Studies Lab Studies: Microbiology Studies 05/10/17 05:30 Blood Culture - Preliminary Blood NO GROWTH AFTER 48 HOURS 05/10/17 05:00 Blood Culture - Preliminary Blood NO GROWTH AFTER 48 HOURS 05/10/17 11:00 MRSA Culture (Admit) - Final Nose Lab Studies 05/12/17 05/12/17 05/12/17 Range/Units 11:39 07:14 06:11 WBC (4.8-10.8) K/uL RBC (3.80-5.20) Mil/uL Hgb (11.0-16.0) g/dL Hct (34.0-47.0) % MCV (81.0-99.0) fL MCH (27.0-31.0) pg MCHC (33.0-37.0) g/dL RDW (11.5-14.5) % Plt Count (130-400) K/uL MPV (7.2-11.7) fL Neut % (Auto) (50.0-75.0) % Lymph % (Auto) (20.0-40.0) % [place] % (Auto) (0.0-10.0) % Eos % (Auto) (0.0-4.0) % Baso % (Auto) (0.0-2.0) % Neut # (1.8-7.0) K/uL Lymph # (1.0-4.3) K/uL [place] # (0.0-0.8) K/uL Eos # (0.0-0.7) K/uL Baso # (0.0-0.2) K/uL Sodium 137 (132-148) mmol/L Potassium 4.4 (3.6-5.2) mmol/L Chloride 102 (98-107) mmol/L Carbon Dioxide 27 (22-30) mmol/L Anion Gap 12 (10-20) BUN 21 H (7-17) mg/dL Creatinine 1.9 H (0.7-1.2) mg/dL Est GFR ( Amer) 31 Est GFR (Non-Af Amer) 25 POC Glucose (mg/dL) 147 H 211 H (65-110) mg/dL Random Glucose 172 H (65-105) mg/dL Calcium 8.2 L (8.6-10.4) mg/dl Phosphorus 3.7 (2.5-4.5) mg/dL Magnesium 1.6 (1.6-2.3) mg/dL Total Bilirubin 0.5 (0.2-1.3) mg/dL AST 39 H (14-36) U/L ALT 29 (9-52) U/L Alkaline Phosphatase 198 H (38-126) U/L Total Protein 8.6 H (6.3-8.3) g/dL Albumin 3.5 (3.5-5.0) g/dL Globulin 5.2 H (2.2-3.9) gm/dL Albumin/Globulin Ratio 0.7 L (1.0-2.1) 05/12/17 05/11/17 05/11/17 Range/Units 06:11 23:40 21:12 WBC 7.1 (4.8-10.8) K/uL RBC 3.77 L (3.80-5.20) Mil/uL Hgb 9.2 L (11.0-16.0) g/dL Hct 29.9 L (34.0-47.0) % MCV 79.5 L (81.0-99.0) fL MCH 24.4 L (27.0-31.0) pg MCHC 30.6 L (33.0-37.0) g/dL RDW 19.7 H (11.5-14.5) % Plt Count 214 (130-400) K/uL MPV 9.5 (7.2-11.7) fL Neut % (Auto) 78.7 H (50.0-75.0) % Lymph % (Auto) 14.3 L (20.0-40.0) % [place] % (Auto) 5.5 (0.0-10.0) % Eos % (Auto) 1.0 (0.0-4.0) % Baso % (Auto) 0.5 (0.0-2.0) % Neut # 5.6 (1.8-7.0) K/uL Lymph # 1.0 (1.0-4.3) K/uL [place] # 0.4 (0.0-0.8) K/uL Eos # 0.1 (0.0-0.7) K/uL Baso # 0.0 (0.0-0.2) K/uL Sodium (132-148) mmol/L Potassium (3.6-5.2) mmol/L Chloride (98-107) mmol/L Carbon Dioxide (22-30) mmol/L Anion Gap (10-20) BUN (7-17) mg/dL Creatinine (0.7-1.2) mg/dL Est GFR ( Amer) Est GFR (Non-Af Amer) POC Glucose (mg/dL) 173 H 148 H (65-110) mg/dL Random Glucose (65-105) mg/dL Calcium (8.6-10.4) mg/dl Phosphorus (2.5-4.5) mg/dL Magnesium (1.6-2.3) mg/dL Total Bilirubin (0.2-1.3) mg/dL AST (14-36) U/L ALT (9-52) U/L Alkaline Phosphatase (38-126) U/L Total Protein (6.3-8.3) g/dL Albumin (3.5-5.0) g/dL Globulin (2.2-3.9) gm/dL Albumin/Globulin Ratio (1.0-2.1) 05/11/17 Range/Units 16:30 WBC (4.8-10.8) K/uL RBC (3.80-5.20) Mil/uL Hgb (11.0-16.0) g/dL Hct (34.0-47.0) % MCV (81.0-99.0) fL MCH (27.0-31.0) pg MCHC (33.0-37.0) g/dL RDW (11.5-14.5) % Plt Count (130-400) K/uL MPV (7.2-11.7) fL Neut % (Auto) (50.0-75.0) % Lymph % (Auto) (20.0-40.0) % [place] % (Auto) (0.0-10.0) % Eos % (Auto) (0.0-4.0) % Baso % (Auto) (0.0-2.0) % Neut # (1.8-7.0) K/uL Lymph # (1.0-4.3) K/uL [place] # (0.0-0.8) K/uL Eos # (0.0-0.7) K/uL Baso # (0.0-0.2) K/uL Sodium (132-148) mmol/L Potassium (3.6-5.2) mmol/L Chloride (98-107) mmol/L Carbon Dioxide (22-30) mmol/L Anion Gap (10-20) BUN (7-17) mg/dL Creatinine (0.7-1.2) mg/dL Est GFR ( Amer) Est GFR (Non-Af Amer) POC Glucose (mg/dL) 183 H (65-110) mg/dL Random Glucose (65-105) mg/dL Calcium (8.6-10.4) mg/dl Phosphorus (2.5-4.5) mg/dL Magnesium (1.6-2.3) mg/dL Total Bilirubin (0.2-1.3) mg/dL AST (14-36) U/L ALT (9-52) U/L Alkaline Phosphatase (38-126) U/L Total Protein (6.3-8.3) g/dL Albumin (3.5-5.0) g/dL Globulin (2.2-3.9) gm/dL Albumin/Globulin Ratio (1.0-2.1) Laboratory Results - last 24 hr 05/11/17 05/11/17 05/11/17 16:30 21:12 23:40 WBC RBC Hgb Hct MCV MCH MCHC RDW Plt Count MPV Neut % (Auto) Lymph % (Auto) [place] % (Auto) Eos % (Auto) Baso % (Auto) Neut # Lymph # [place] # Eos # Baso # Sodium Potassium Chloride Carbon Dioxide Anion Gap BUN Creatinine Est GFR ( Amer) Est GFR (Non-Af Amer) POC Glucose (mg/dL) 183 H 148 H 173 H Random Glucose Calcium Phosphorus Magnesium Total Bilirubin AST ALT Alkaline Phosphatase Total Protein Albumin Globulin Albumin/Globulin Ratio 05/12/17 05/12/17 05/12/17 06:11 06:11 07:14 WBC 7.1 RBC 3.77 L Hgb 9.2 L Hct 29.9 L MCV 79.5 L MCH 24.4 L MCHC 30.6 L RDW 19.7 H Plt Count 214 MPV 9.5 Neut % (Auto) 78.7 H Lymph % (Auto) 14.3 L [place] % (Auto) 5.5 Eos % (Auto) 1.0 Baso % (Auto) 0.5 Neut # 5.6 Lymph # 1.0 [place] # 0.4 Eos # 0.1 Baso # 0.0 Sodium 137 Potassium 4.4 Chloride 102 Carbon Dioxide 27 Anion Gap 12 BUN 21 H Creatinine 1.9 H Est GFR ( Amer) 31 Est GFR (Non-Af Amer) 25 POC Glucose (mg/dL) 211 H Random Glucose 172 H Calcium 8.2 L Phosphorus 3.7 Magnesium 1.6 Total Bilirubin 0.5 AST 39 H ALT 29 Alkaline Phosphatase 198 H Total Protein 8.6 H Albumin 3.5 Globulin 5.2 H Albumin/Globulin Ratio 0.7 L 05/12/17 11:39 WBC RBC Hgb Hct MCV MCH MCHC RDW Plt Count MPV Neut % (Auto) Lymph % (Auto) [place] % (Auto) Eos % (Auto) Baso % (Auto) Neut # Lymph # [place] # Eos # Baso # Sodium Potassium Chloride Carbon Dioxide Anion Gap BUN Creatinine Est GFR ( Amer) Est GFR (Non-Af Amer) POC Glucose (mg/dL) 147 H Random Glucose Calcium Phosphorus Magnesium Total Bilirubin AST ALT Alkaline Phosphatase Total Protein Albumin Globulin Albumin/Globulin Ratio Fingerstick Blood Sugar Results: 147 Critical Care Progress Note - Nutrition Nutrition: Nutrition Category Date Time Status Consistent Carbohydrate [DIET] Diets 05/10/17 Breakfast Active Assessment/Plan (1) Acute exacerbation of CHF (congestive heart failure) Current Visit: Yes Status: Acute Comment: Congestive heart failure secondary to aortic stenosis IV Lasix For cardiac cath BiPAP as needed (2) Aortic stenosis Current Visit: No Status: Chronic
[2017-05-12] MEDS: Mupirocin 2% Ointment (NASAL) NAS SCH (17:35)
--- NOTE | 2017-05-12 19:22 | CP.PCM.PN ---
Subjective - Date & Time of Evaluation Date of Evaluation: 05/12/17 Time of Evaluation: 16:30 - Subjective Subjective: Patient seen and evaluated Breathing much better Denies chest pain Review of Systems - EENT Eyes: absent: As Per HPI, Blind Spots, Blurred Vision, Change in Vision, Decreased Night Vision, Diplopia, Discharge, Dry Eye, Exophthalmos, Floaters, Irritation, Itchy Eyes, Loss of Peripheral Vision, Pain, Photophobia, Requires Corrective Lenses, Sees Flashes, Spots in Vision, Tunnel Vision, Other Visual Disturbances, Loss of Vision, Other Ears: absent: As Per HPI, Decreased Hearing, Ear Discharge, Ear Pain, Tinnitus, Abnormal Hearing, Disequilibrium, Dizziness, Other Nose/Mouth/Throat: absent: As Per HPI, Epistaxis, Nasal Congestion, Nasal Discharge, Nasal Obstruction, Nasal Trauma, Nose Pain, Post Nasal Drip, Sinus Pain, Sinus Pressure, Bleeding Gums, Change in Voice, Dental Pain, Dry Mouth, Dysphagia, Halitosis, Hoarsness, Lip Swelling, Mouth Lesions, Mouth Pain, Odynophagia, Sore Throat, Throat Swelling, Tongue Swelling, Facial Pain, Neck Pain, Neck Mass, Other - Cardiovascular Cardiovascular: Dyspnea - Respiratory Respiratory: Dyspnea - Gastrointestinal Gastrointestinal: absent: As Per HPI, Abdominal Pain, Belching, Bloating, Change in Bowel Habits, Change in Stool Character, Coffee Ground Emesis, Constipation, Cramping, Diarrhea, Dyspepsia, Dysphagia, Early Satiety, Excessive Flatus, Fecal Incontinence, Heartburn, Hematemesis, Hematochezia, Loose Stools, Melena, Nausea, Odynophagia, Temesmus, Vomiting, Other - Musculoskeletal Musculoskeletal: absent: As Per HPI, Abnormal Gait, Arthralgias, Atrophy, Back Pain, Deformity, Joint Swelling, Limited Range of Motion, Loss of Height, Muscle Cramps, Muscle Weakness, Myalgias, Neck Pain, Numbness, Radiating Pain into Limb, Stiffness, Tingling, Other - Hematologic/Lymphatic Hematologic: absent: As Per HPI, Easy Bleeding, Easy Bruising, Lymphadenopathy, Other Physical Exam - Head Exam Head Exam: ATRAUMATIC - Eye Exam Eye Exam: EOMI, Normal appearance, PERRL - ENT Exam ENT Exam: Mucous Membranes Moist - Neck Exam Neck exam: Positive for: Normal Inspection - Respiratory Exam Respiratory Exam: Clear to Auscultation Bilateral - Cardiovascular Exam Cardiovascular Exam: REGULAR RHYTHM, +S1, +S2, Systolic Murmur - GI/Abdominal Exam GI & Abdominal Exam: Normal Bowel Sounds, Soft - Neurological Exam Neurological exam: Alert, CN II-XII Intact - Psychiatric Exam Psychiatric exam: Normal Mood Objective - Vital Signs/Intake and Output Vital Signs (last 24 hours): Temp Pulse Resp BP Pulse Ox 98.2 F 112 H 18 136/91 H 99 05/12/17 16:00 05/12/17 18:42 05/12/17 18:42 05/12/17 18:42 05/12/17 18:42 Intake and Output: 05/12/17 05/13/17 18:59 06:59 Intake Total 220 Output Total 250 Balance -30 - Medications Medications: Current Medications Acetaminophen (Tylenol 325mg Tab) 325 mg PO Q4 PRN PRN Reason: Fever >100.4 F Aspirin (Aspirin Chewable) 81 mg PO DAILY [facility] Last Admin: 05/12/17 09:36 Dose: 81 mg Enoxaparin Sodium (Lovenox) 40 mg SC DAILY [facility] Furosemide (Lasix) 40 mg IVP DAILY [facility] Gabapentin (Neurontin) 100 mg PO DAILY [facility] Last Admin: 05/12/17 09:36 Dose: 100 mg Hydralazine HCl (Apresoline) 50 mg PO Q8 [facility] Insulin Aspart (Novolog) 0 unit SC ACHS [facility] PRN Reason: Protocol Last Admin: 05/12/17 16:35 Dose: Not Given Insulin Detemir (Levemir) 5 unit SC ACB [facility] Last Admin: 05/12/17 08:47 Dose: 5 unit Metoprolol Tartrate (Lopressor) 50 mg PO Q12 [facility] Last Admin: 05/12/17 09:36 Dose: 50 mg Multivitamins (Hexavitamin) 1 tab PO DAILY [facility] Last Admin: 05/12/17 09:36 Dose: 1 tab Mupirocin (Bactroban 2% Nasal) 0.5 gm RENAN BID [facility] Last Admin: 05/12/17 17:35 Dose: 0.5 gm Pantoprazole Sodium (Protonix Ec Tab) 40 mg PO DAILY [facility] Last Admin: 05/12/17 09:36 Dose: 40 mg Potassium Chloride (K-Dur 20 Meq Er Tab) 10 meq PO DAILY [facility] Last Admin: 05/12/17 09:37 Dose: 10 meq Prochlorperazine (Compazine Rectal Supp) 25 mg RC Q12 PRN PRN Reason: Constipation Rosuvastatin Calcium (Crestor) 10 mg PO HS [facility] Last Admin: 05/11/17 23:56 Dose: 10 mg Sitagliptin Phosphate (Januvia) 25 mg PO DAILY [facility] Last Admin: 05/12/17 09:36 Dose: 25 mg - Labs Labs: 05/12/17 06:11 05/12/17 06:11 PT 13.2 SECONDS (9.7-12.2) H 05/10/17 05:22 INR 1.2 05/10/17 05:22 APTT 47 SECONDS (21-34) H 05/10/17 05:22 Assessment and Plan - Assessment and Plan (Free Text) Assessment: 1. Severe symptomatic with recurrent admissions for CHF Will pursue TAVR Patient needs Cath, BLANKA and CT angio as a part of PreTAVR work up Due to CKD will perform these procedures in stages Cardiac cath on Saturday BLANKA and CT angio as out patient at [facility] Will stop [facility] for cath Renal Consult for CKD (Cardiology Associate to be decided by Dr. Cooper) Left message for Patient's daughter
--- NOTE | 2017-05-12 20:38 | CP.PCM.PN ---
Subjective - Date & Time of Evaluation Date of Evaluation: 05/12/17 Time of Evaluation: 18:00 - Subjective Subjective: Patient seen and evaluated Breathing much better Denies chest pain Objective - Vital Signs/Intake and Output Vital Signs (last 24 hours): Temp Pulse Resp BP Pulse Ox 98.2 F 112 H 18 136/91 H 99 05/12/17 16:00 05/12/17 18:42 05/12/17 18:42 05/12/17 18:42 05/12/17 18:42 Intake and Output: 05/12/17 05/13/17 18:59 06:59 Intake Total 220 Output Total 250 Balance -30 - Medications Medications: Current Medications Acetaminophen (Tylenol 325mg Tab) 325 mg PO Q4 PRN PRN Reason: Fever >100.4 F Aspirin (Aspirin Chewable) 81 mg PO DAILY [facility] Last Admin: 05/12/17 09:36 Dose: 81 mg Enoxaparin Sodium (Lovenox) 40 mg SC DAILY [facility] Furosemide (Lasix) 40 mg IVP DAILY [facility] Gabapentin (Neurontin) 100 mg PO DAILY [facility] Last Admin: 05/12/17 09:36 Dose: 100 mg Hydralazine HCl (Apresoline) 50 mg PO Q8 [facility] Insulin Aspart (Novolog) 0 unit SC ACHS [facility] PRN Reason: Protocol Last Admin: 05/12/17 16:35 Dose: Not Given Insulin Detemir (Levemir) 5 unit SC ACB [facility] Last Admin: 05/12/17 08:47 Dose: 5 unit Metoprolol Tartrate (Lopressor) 50 mg PO Q12 [facility] Last Admin: 05/12/17 09:36 Dose: 50 mg Multivitamins (Hexavitamin) 1 tab PO DAILY [facility] Last Admin: 05/12/17 09:36 Dose: 1 tab Mupirocin (Bactroban 2% Nasal) 0.5 gm RENAN BID [facility] Last Admin: 05/12/17 17:35 Dose: 0.5 gm Pantoprazole Sodium (Protonix Ec Tab) 40 mg PO DAILY [facility] Last Admin: 05/12/17 09:36 Dose: 40 mg Potassium Chloride (K-Dur 20 Meq Er Tab) 10 meq PO DAILY [facility] Last Admin: 05/12/17 09:37 Dose: 10 meq Prochlorperazine (Compazine Rectal Supp) 25 mg RC Q12 PRN PRN Reason: Constipation Rosuvastatin Calcium (Crestor) 10 mg PO HS [facility] Last Admin: 05/11/17 23:56 Dose: 10 mg Sitagliptin Phosphate (Januvia) 25 mg PO DAILY [facility] Last Admin: 05/12/17 09:36 Dose: 25 mg - Labs Labs: 05/12/17 06:11 05/12/17 06:11 PT 13.2 SECONDS (9.7-12.2) H 05/10/17 05:22 INR 1.2 05/10/17 05:22 APTT 47 SECONDS (21-34) H 05/10/17 05:22 - Constitutional Appears: No Acute Distress - Head Exam Head Exam: ATRAUMATIC, NORMAL INSPECTION, NORMOCEPHALIC - Eye Exam Eye Exam: EOMI, Normal appearance, PERRL Pupil Exam: NORMAL ACCOMODATION, PERRL - Respiratory Exam Respiratory Exam: Rales, NORMAL BREATHING PATTERN - Cardiovascular Exam Cardiovascular Exam: REGULAR RHYTHM, +S1, +S2, Murmur - GI/Abdominal Exam GI & Abdominal Exam: Soft, Normal Bowel Sounds. absent: Tenderness Assessment and Plan (1) Acute exacerbation of CHF (congestive heart failure) Status: Acute (2) Dyspnea Status: Acute (3) AD (Alzheimer's disease) Status: Acute (4) Aortic stenosis, moderate Status: Acute
[2017-05-12] MEDS ORDERED: Metoprolol 1 mg/ml Inj IVP ONE (22:17)
[2017-05-13 06:38] LABS: BASO % 0.6 % (0.0-2.0); EOS # 0.1 K/uL (0.0-0.7); EOS % 1.5 % (0.0-4.0); HEMATOCRIT 30.5 % (34.0-47.0); LYMPH # 1.3 K/uL (1.0-4.3); LYMPH % 21.3 % (20.0-40.0); MEAN CELL VOLUME 79.2 fL (81.0-99.0); MEAN CORPUSCULAR HEMOGLOBIN 24.9 pg (27.0-31.0); MEAN CORPUSCULAR HGB CONC 31.5 g/dL (33.0-37.0); MEAN PLATELET VOLUME 9.4 fL (7.2-11.7); MONO # 0.5 K/uL (0.0-0.8); MONO % 7.6 % (0.0-10.0); RED CELL DISTRIBUTION WIDTH 19.4 % (11.5-14.5)
[2017-05-13 06:50] LABS: ALB/GLOB RATIO 0.7 (1.0-2.1); BILIRUBIN,TOTAL 0.7 mg/dL (0.2-1.3); CALCIUM 8.6 mg/dl (8.6-10.4); MAGNESIUM 1.6 mg/dL (1.6-2.3); PHOSPHOROUS 3.5 mg/dL (2.5-4.5); POTASSIUM 4.2 mmol/L (3.6-5.2); TOTAL PROTEIN 8.5 g/dL (6.3-8.3)
[2017-05-13] MEDS: (Novolog) Insulin Aspart, Recombinant 100 u/ml 10 ml vial SC SCH ×5 (07:33→21:44)
[2017-05-13] MEDS: Insulin Detemir 100 units/ml Vial (Levemir) SC SCH (07:46)
[2017-05-13] MEDS: Mupirocin 2% Ointment (NASAL) NAS SCH ×2 (09:18→18:11)
[2017-05-13] MEDS: Pantoprazole 40 mg EC Tab PO SCH (09:18)
[2017-05-13] MEDS: Multiple Vitamins Tab PO SCH (09:19)
[2017-05-13] MEDS: Potassium Chloride 10 mEq ER Tab PO SCH ×2 (09:45→10:24)
[2017-05-13] MEDS ORDERED: Enoxaparin 40 mg Syringe SC SCH ×2 (10:00)
[2017-05-13] MEDS ORDERED: Enoxaparin 30 mg Syringe SC SCH (10:07)
[2017-05-13] MEDS: Enoxaparin 30 mg Syringe SC SCH (10:52)
--- NOTE | 2017-05-13 19:25 | CP.CCUPN ---
<Jhoan Lee - Last Filed: 05/13/17 19:40> CCU Subjective - Physician Review Subjective (Free Text): 05/13/17 19:25 PGY1 ICU progress note for Dr. Roland Patient seen and examined at bedside this morning. Patient resting comfortably in bed. Patient has been off of BiPAP and is still breathing well. Denies any chest pain or shortness of breath. CCU Objective - Vital Signs / Intake & Output Vital Signs (Last 4 hours): Vital Signs Temp Pulse Resp BP Pulse Ox 05/13/17 18:42 113 H 23 149/81 99 05/13/17 18:00 114 H 22 100 05/13/17 17:42 114 H 17 166/82 H 100 05/13/17 17:00 116 H 20 100 05/13/17 16:42 115 H 18 152/76 H 100 05/13/17 16:00 98.4 F 116 H 22 157/81 H 100 05/13/17 15:41 116 H 21 159/81 H 100 Intake and Output (Last 8hrs): Intake & Output 05/13/17 05/13/17 05/13/17 06:59 14:59 22:59 Intake Total 50 100 0 Output Total 600 400 Balance -550 100 -400 Weight 186 lb Intake: Oral 50 100 0 Output: Urine 600 400 Urine, Voided 600 400 Stool 0 - Physical Exam Head: Positive for: Atraumatic, Normocephalic Conjunctiva: Positive for: Normal Mouth: Positive for: Moist Mucous Membranes Neck: Positive for: Trachea Midline Respiratory/Chest: Positive for: Rales Cardiovascular: Positive for: Irregular Rhythm Abdomen: Positive for: Normal Bowel Sounds Upper Extremity: Positive for: Normal Inspection Lower Extremity: Positive for: Normal Inspection Skin: Positive for: Warm, Dry Psychiatric: Positive for: Alert - Medications Active Medications: Active Medications Generic Name Dose Route Start Last Admin Trade Name Freq PRN Reason Stop Dose Admin Acetaminophen 325 mg 05/10/17 06:59 Tylenol 325mg Tab PO Q4 PRN Fever >100.4 F Aspirin 81 mg 05/10/17 10:00 05/13/17 10:12 Aspirin Chewable PO 81 mg DAILY MASTER Administration Enoxaparin Sodium 30 mg 05/13/17 10:00 05/13/17 10:52 Lovenox SC 30 mg DAILY MASTER Administration Furosemide 40 mg 05/13/17 10:07 Lasix IVP DAILY MASTER Gabapentin 100 mg 05/10/17 10:00 05/13/17 09:19 Neurontin PO 100 mg DAILY MASTER Administration Hydralazine HCl 50 mg 05/12/17 17:51 05/13/17 13:08 Apresoline PO 50 mg Q8 MASTER Administration Insulin Aspart 0 unit 05/10/17 07:30 05/13/17 16:43 Novolog SC 1 unit ACHS MASTER Administration Protocol Insulin Detemir 5 unit 05/10/17 07:30 05/13/17 07:46 Levemir SC Not Given ACB MASTER Metoprolol Tartrate 50 mg 05/10/17 10:00 05/13/17 09:19 Lopressor PO 50 mg Q12 MASTER Administration Multivitamins 1 tab 05/10/17 10:00 05/13/17 09:19 Hexavitamin PO 1 tab DAILY MASTER Administration Mupirocin 0.5 gm 05/12/17 18:00 05/13/17 18:11 Bactroban 2% Nasal RENAN 0.5 gm BID MASTER Administration Pantoprazole Sodium 40 mg 05/10/17 10:00 05/13/17 09:18 Protonix Ec Tab PO 40 mg DAILY MASTER Administration Potassium Chloride 10 meq 05/13/17 10:00 05/13/17 10:24 Klor-Con 10 PO 10 meq DAILY MASTER Administration Prochlorperazine 25 mg 05/10/17 06:59 Compazine Rectal Supp RC Q12 PRN Constipation Rosuvastatin Calcium 10 mg 05/10/17 22:00 05/12/17 22:27 Crestor PO Not Given HS [facility] Sitagliptin Phosphate 25 mg 05/10/17 10:00 05/13/17 09:45 Januvia PO Not Given DAILY MASTER - Patient Studies Lab Studies: Microbiology Studies 05/10/17 05:30 Blood Culture - Preliminary Blood NO GROWTH AFTER 3 DAYS 05/10/17 05:00 Blood Culture - Preliminary Blood NO GROWTH AFTER 3 DAYS Lab Studies 05/13/17 05/13/17 05/13/17 Range/Units 16:36 11:44 07:24 WBC (4.8-10.8) K/uL RBC (3.80-5.20) Mil/uL Hgb (11.0-16.0) g/dL Hct (34.0-47.0) % MCV (81.0-99.0) fL MCH (27.0-31.0) pg MCHC (33.0-37.0) g/dL RDW (11.5-14.5) % Plt Count (130-400) K/uL MPV (7.2-11.7) fL Neut % (Auto) (50.0-75.0) % Lymph % (Auto) (20.0-40.0) % Irwin % (Auto) (0.0-10.0) % Eos % (Auto) (0.0-4.0) % Baso % (Auto) (0.0-2.0) % Neut # (1.8-7.0) K/uL Lymph # (1.0-4.3) K/uL Irwin # (0.0-0.8) K/uL Eos # (0.0-0.7) K/uL Baso # (0.0-0.2) K/uL Sodium (132-148) mmol/L Potassium (3.6-5.2) mmol/L Chloride (98-107) mmol/L Carbon Dioxide (22-30) mmol/L Anion Gap (10-20) BUN (7-17) mg/dL Creatinine (0.7-1.2) mg/dL Est GFR ( Amer) Est GFR (Non-Af Amer) POC Glucose (mg/dL) 192 H 197 H 194 H (65-110) mg/dL Random Glucose (65-105) mg/dL Calcium (8.6-10.4) mg/dl Phosphorus (2.5-4.5) mg/dL Magnesium (1.6-2.3) mg/dL Total Bilirubin (0.2-1.3) mg/dL AST (14-36) U/L ALT (9-52) U/L Alkaline Phosphatase (38-126) U/L Total Protein (6.3-8.3) g/dL Albumin (3.5-5.0) g/dL Globulin (2.2-3.9) gm/dL Albumin/Globulin Ratio (1.0-2.1) 05/13/17 05/13/17 05/12/17 Range/Units 06:24 06:23 21:23 WBC 6.0 (4.8-10.8) K/uL RBC 3.85 (3.80-5.20) Mil/uL Hgb 9.6 L (11.0-16.0) g/dL Hct 30.5 L (34.0-47.0) % MCV 79.2 L (81.0-99.0) fL MCH 24.9 L (27.0-31.0) pg MCHC 31.5 L (33.0-37.0) g/dL RDW 19.4 H (11.5-14.5) % Plt Count 214 (130-400) K/uL MPV 9.4 (7.2-11.7) fL Neut % (Auto) 69.0 (50.0-75.0) % Lymph % (Auto) 21.3 (20.0-40.0) % Irwin % (Auto) 7.6 (0.0-10.0) % Eos % (Auto) 1.5 (0.0-4.0) % Baso % (Auto) 0.6 (0.0-2.0) % Neut # 4.1 (1.8-7.0) K/uL Lymph # 1.3 (1.0-4.3) K/uL Irwin # 0.5 (0.0-0.8) K/uL Eos # 0.1 (0.0-0.7) K/uL Baso # 0.0 (0.0-0.2) K/uL Sodium 136 (132-148) mmol/L Potassium 4.2 (3.6-5.2) mmol/L Chloride 99 (98-107) mmol/L Carbon Dioxide 29 (22-30) mmol/L Anion Gap 13 (10-20) BUN 25 H (7-17) mg/dL Creatinine 2.1 H (0.7-1.2) mg/dL Est GFR ( Amer) 27 Est GFR (Non-Af Amer) 23 POC Glucose (mg/dL) 166 H (65-110) mg/dL Random Glucose 176 H (65-105) mg/dL Calcium 8.6 (8.6-10.4) mg/dl Phosphorus 3.5 (2.5-4.5) mg/dL Magnesium 1.6 (1.6-2.3) mg/dL Total Bilirubin 0.7 (0.2-1.3) mg/dL AST 37 H (14-36) U/L ALT 16 (9-52) U/L Alkaline Phosphatase 186 H (38-126) U/L Total Protein 8.5 H (6.3-8.3) g/dL Albumin 3.5 (3.5-5.0) g/dL Globulin 5.0 H (2.2-3.9) gm/dL Albumin/Globulin Ratio 0.7 L (1.0-2.1) Laboratory Results - last 24 hr 05/12/17 05/13/17 05/13/17 21:23 06:23 06:24 WBC 6.0 RBC 3.85 Hgb 9.6 L Hct 30.5 L MCV 79.2 L MCH 24.9 L MCHC 31.5 L RDW 19.4 H Plt Count 214 MPV 9.4 Neut % (Auto) 69.0 Lymph % (Auto) 21.3 Irwin % (Auto) 7.6 Eos % (Auto) 1.5 Baso % (Auto) 0.6 Neut # 4.1 Lymph # 1.3 Irwin # 0.5 Eos # 0.1 Baso # 0.0 Sodium 136 Potassium 4.2 Chloride 99 Carbon Dioxide 29 Anion Gap 13 BUN 25 H Creatinine 2.1 H Est GFR ( Amer) 27 Est GFR (Non-Af Amer) 23 POC Glucose (mg/dL) 166 H Random Glucose 176 H Calcium 8.6 Phosphorus 3.5 Magnesium 1.6 Total Bilirubin 0.7 AST 37 H ALT 16 Alkaline Phosphatase 186 H Total Protein 8.5 H Albumin 3.5 Globulin 5.0 H Albumin/Globulin Ratio 0.7 L 05/13/17 05/13/17 05/13/17 07:24 11:44 16:36 WBC RBC Hgb Hct MCV MCH MCHC RDW Plt Count MPV Neut % (Auto) Lymph % (Auto) Irwin % (Auto) Eos % (Auto) Baso % (Auto) Neut # Lymph # Irwin # Eos # Baso # Sodium Potassium Chloride Carbon Dioxide Anion Gap BUN Creatinine Est GFR ( Amer) Est GFR (Non-Af Amer) POC Glucose (mg/dL) 194 H 197 H 192 H Random Glucose Calcium Phosphorus Magnesium Total Bilirubin AST ALT Alkaline Phosphatase Total Protein Albumin Globulin Albumin/Globulin Ratio Fingerstick Blood Sugar Results: 199 Critical Care Progress Note - Nutrition Nutrition: Nutrition Category Date Time Status Consistent Carbohydrate [DIET] Diets 05/10/17 Breakfast Active Assessment/Plan - Assessment and Plan (Free Text) Assessment: 82 year old female with with history of aortic stenosis, renal insufficiency, hypertension, CAD, atrial fibrillation presenting with CHF exacerbation Plan: Cardio: Dr. Cordero consulted Acute exacerbation of CHF Scheduled for Cardiac Cath tomorrow morning Patient is being worked up for TAVR for Aortic Stenosis Will need BLANKA and CT angio as out patient Aspirin 81mg PO daily Lasix 40mg IVP daily Metoprolol Tartrate 50mg PO q12 Hydralazine 50mg PO q8 Crestor 10mg PO HS BiPAP as needed Renal: Decreased Lovenox to 30mg SC daily due to renal dosing Cr 2.1, continue to monitor Endo: DM2 Levemir 5 units SC ACB ISS Januvia 25mg PO daily Case discussed with Dr. Luan Lee PGY1 <Marky Roland - Last Filed: 05/14/17 22:31> CCU Objective - Vital Signs / Intake & Output Intake and Output (Last 8hrs): Intake & Output 05/14/17 05/14/17 05/14/17 06:59 14:59 22:59 Intake Total 30 Output Total 350 Balance -320 Weight 179 lb 2.6 oz Intake: Oral 30 Output: Urine 350 Urine, Voided 350 Other: # Bowel Movements 0 - Patient Studies Lab Studies: Microbiology Studies 05/10/17 05:30 Blood Culture - Preliminary Blood NO GROWTH AFTER 4 DAYS 05/10/17 05:00 Blood Culture - Preliminary Blood NO GROWTH AFTER 4 DAYS Lab Studies 05/14/17 05/14/17 05/14/17 Range/Units 15:13 15:00 11:12 WBC (4.8-10.8) K/uL RBC (3.80-5.20) Mil/uL Hgb (11.0-16.0) g/dL Hct (34.0-47.0) % MCV (81.0-99.0) fL MCH (27.0-31.0) pg MCHC (33.0-37.0) g/dL RDW (11.5-14.5) % Plt Count (130-400) K/uL MPV (7.2-11.7) fL Neut % (Auto) (50.0-75.0) % Lymph % (Auto) (20.0-40.0) % Irwin % (Auto) (0.0-10.0) % Eos % (Auto) (0.0-4.0) % Baso % (Auto) (0.0-2.0) % Neut # (1.8-7.0) K/uL Lymph # (1.0-4.3) K/uL Irwin # (0.0-0.8) K/uL Eos # (0.0-0.7) K/uL Baso # (0.0-0.2) K/uL PT (9.7-12.2) SECONDS INR APTT (21-34) SECONDS Sodium (132-148) mmol/L Potassium (3.6-5.2) mmol/L Chloride (98-107) mmol/L Carbon Dioxide (22-30) mmol/L Anion Gap (10-20) BUN (7-17) mg/dL Creatinine (0.7-1.2) mg/dL Est GFR ( Amer) Est GFR (Non-Af Amer) POC Glucose (mg/dL) 119 H (65-110) mg/dL Random Glucose (65-105) mg/dL Calcium (8.6-10.4) mg/dl Phosphorus (2.5-4.5) mg/dL Magnesium (1.6-2.3) mg/dL Ur Random Creatinine 54.4 mg/dL U Random Total Protein Cancelled 402.0 H (0.0-12.0) mg/dL 05/14/17 05/14/17 05/14/17 Range/Units 07:34 06:46 06:46 WBC (4.8-10.8) K/uL RBC (3.80-5.20) Mil/uL Hgb (11.0-16.0) g/dL Hct (34.0-47.0) % MCV (81.0-99.0) fL MCH (27.0-31.0) pg MCHC (33.0-37.0) g/dL RDW (11.5-14.5) % Plt Count (130-400) K/uL MPV (7.2-11.7) fL Neut % (Auto) (50.0-75.0) % Lymph % (Auto) (20.0-40.0) % Irwin % (Auto) (0.0-10.0) % Eos % (Auto) (0.0-4.0) % Baso % (Auto) (0.0-2.0) % Neut # (1.8-7.0) K/uL Lymph # (1.0-4.3) K/uL Irwin # (0.0-0.8) K/uL Eos # (0.0-0.7) K/uL Baso # (0.0-0.2) K/uL PT 12.2 (9.7-12.2) SECONDS INR 1.1 APTT 49 H (21-34) SECONDS Sodium 137 (132-148) mmol/L Potassium 4.3 (3.6-5.2) mmol/L Chloride 99 (98-107) mmol/L Carbon Dioxide 26 (22-30) mmol/L Anion Gap 16 (10-20) BUN 29 H (7-17) mg/dL Creatinine 2.1 H (0.7-1.2) mg/dL Est GFR ( Amer) 27 Est GFR (Non-Af Amer) 23 POC Glucose (mg/dL) 246 H (65-110) mg/dL Random Glucose 197 H (65-105) mg/dL Calcium 8.6 (8.6-10.4) mg/dl Phosphorus 3.7 (2.5-4.5) mg/dL Magnesium 1.6 (1.6-2.3) mg/dL Ur Random Creatinine mg/dL U Random Total Protein (0.0-12.0) mg/dL 05/14/17 Range/Units 06:46 WBC 6.7 (4.8-10.8) K/uL RBC 3.56 L (3.80-5.20) Mil/uL Hgb 8.9 L (11.0-16.0) g/dL Hct 28.3 L (34.0-47.0) % MCV 79.5 L (81.0-99.0) fL MCH 24.9 L (27.0-31.0) pg MCHC 31.4 L (33.0-37.0) g/dL RDW 19.0 H (11.5-14.5) % Plt Count 195 (130-400) K/uL MPV 9.2 (7.2-11.7) fL Neut % (Auto) 79.3 H (50.0-75.0) % Lymph % (Auto) 13.8 L (20.0-40.0) % Irwin % (Auto) 5.8 (0.0-10.0) % Eos % (Auto) 0.5 (0.0-4.0) % Baso % (Auto) 0.6 (0.0-2.0) % Neut # 5.3 (1.8-7.0) K/uL Lymph # 0.9 L (1.0-4.3) K/uL Irwin # 0.4 (0.0-0.8) K/uL Eos # 0.0 (0.0-0.7) K/uL Baso # 0.0 (0.0-0.2) K/uL PT (9.7-12.2) SECONDS INR APTT (21-34) SECONDS Sodium (132-148) mmol/L Potassium (3.6-5.2) mmol/L Chloride (98-107) mmol/L Carbon Dioxide (22-30) mmol/L Anion Gap (10-20) BUN (7-17) mg/dL Creatinine (0.7-1.2) mg/dL Est GFR ( Amer) Est GFR (Non-Af Amer) POC Glucose (mg/dL) (65-110) mg/dL Random Glucose (65-105) mg/dL Calcium (8.6-10.4) mg/dl Phosphorus (2.5-4.5) mg/dL Magnesium (1.6-2.3) mg/dL Ur Random Creatinine mg/dL U Random Total Protein (0.0-12.0) mg/dL Laboratory Results - last 24 hr 05/14/17 05/14/17 05/14/17 06:46 06:46 06:46 WBC 6.7 RBC 3.56 L Hgb 8.9 L Hct 28.3 L MCV 79.5 L MCH 24.9 L MCHC 31.4 L RDW 19.0 H Plt Count 195 MPV 9.2 Neut % (Auto) 79.3 H Lymph % (Auto) 13.8 L Irwin % (Auto) 5.8 Eos % (Auto) 0.5 Baso % (Auto) 0.6 Neut # 5.3 Lymph # 0.9 L Irwin # 0.4 Eos # 0.0 Baso # 0.0 PT 12.2 INR 1.1 APTT 49 H Sodium 137 Potassium 4.3 Chloride 99 Carbon Dioxide 26 Anion Gap 16 BUN 29 H Creatinine 2.1 H Est GFR ( Amer) 27 Est GFR (Non-Af Amer) 23 POC Glucose (mg/dL) Random Glucose 197 H Calcium 8.6 Phosphorus 3.7 Magnesium 1.6 Ur Random Creatinine U Random Total Protein 05/14/17 05/14/17 05/14/17 07:34 11:12 15:00 WBC RBC Hgb Hct MCV MCH MCHC RDW Plt Count MPV Neut % (Auto) Lymph % (Auto) Irwin % (Auto) Eos % (Auto) Baso % (Auto) Neut # Lymph # Irwin # Eos # Baso # PT INR APTT Sodium Potassium Chloride Carbon Dioxide Anion Gap BUN Creatinine Est GFR ( Amer) Est GFR (Non-Af Amer) POC Glucose (mg/dL) 246 H 119 H Random Glucose Calcium Phosphorus Magnesium Ur Random Creatinine U Random Total Protein 402.0 H 05/14/17 15:13 WBC RBC Hgb Hct MCV MCH MCHC RDW Plt Count MPV Neut % (Auto) Lymph % (Auto) Irwin % (Auto) Eos % (Auto) Baso % (Auto) Neut # Lymph # Irwin # Eos # Baso # PT INR APTT Sodium Potassium Chloride Carbon Dioxide Anion Gap BUN Creatinine Est GFR ( Amer) Est GFR (Non-Af Amer) POC Glucose (mg/dL) Random Glucose Calcium Phosphorus Magnesium Ur Random Creatinine 54.4 U Random Total Protein Cancelled Critical Care Progress Note - Nutrition Nutrition: Nutrition Category Date Time Status Consistent Carbohydrate [DIET] Diets 05/10/17 Breakfast Active Attending/Attestation - Attestation I have personally seen and examined this patient.: Yes I have fully participated in the care of the patient.: Yes I have reviewed all pertinent clinical information: Yes Notes (Text): agree with resident note
[2017-05-13 21:54] VITALS: O2SAT 100
--- NOTE | 2017-05-13 23:37 | CP.PCM.PN ---
Subjective - Date & Time of Evaluation Date of Evaluation: 05/13/17 Time of Evaluation: 19:00 - Subjective Subjective: Patient seen and examined at bedside this morning. Patient resting comfortably in bed. Patient has been off of BiPAP and is still breathing well. Denies any chest pain or shortness of breath. Objective - Vital Signs/Intake and Output Vital Signs (last 24 hours): Temp Pulse Resp BP Pulse Ox 97.4 F L 130 H 22 144/109 H 100 05/13/17 20:00 05/13/17 20:44 05/13/17 20:44 05/13/17 20:44 05/13/17 20:08 Intake and Output: 05/13/17 05/14/17 18:59 06:59 Intake Total 100 Output Total 400 Balance -300 - Medications Medications: Current Medications Acetaminophen (Tylenol 325mg Tab) 325 mg PO Q4 PRN PRN Reason: Fever >100.4 F Aspirin (Aspirin Chewable) 81 mg PO DAILY [facility] Last Admin: 05/13/17 10:12 Dose: 81 mg Enoxaparin Sodium (Lovenox) 30 mg SC DAILY [facility] Last Admin: 05/13/17 10:52 Dose: 30 mg Furosemide (Lasix) 40 mg IVP DAILY [facility] Gabapentin (Neurontin) 100 mg PO DAILY [facility] Last Admin: 05/13/17 09:19 Dose: 100 mg Hydralazine HCl (Apresoline) 50 mg PO Q8 [facility] Last Admin: 05/13/17 21:43 Dose: 50 mg Insulin Aspart (Novolog) 0 unit SC ACHS [facility] PRN Reason: Protocol Last Admin: 05/13/17 21:44 Dose: Not Given Insulin Detemir (Levemir) 5 unit SC ACB [facility] Last Admin: 05/13/17 07:46 Dose: Not Given Metoprolol Tartrate (Lopressor) 50 mg PO Q12 [facility] Last Admin: 05/13/17 21:44 Dose: 50 mg Multivitamins (Hexavitamin) 1 tab PO DAILY [facility] Last Admin: 05/13/17 09:19 Dose: 1 tab Mupirocin (Bactroban 2% Nasal) 0.5 gm RENAN BID [facility] Last Admin: 05/13/17 18:11 Dose: 0.5 gm Pantoprazole Sodium (Protonix Ec Tab) 40 mg PO DAILY [facility] Last Admin: 05/13/17 09:18 Dose: 40 mg Potassium Chloride (Klor-Con 10) 10 meq PO DAILY [facility] Last Admin: 05/13/17 10:24 Dose: 10 meq Prochlorperazine (Compazine Rectal Supp) 25 mg RC Q12 PRN PRN Reason: Constipation Rosuvastatin Calcium (Crestor) 10 mg PO HS [facility] Last Admin: 05/13/17 21:43 Dose: 10 mg Sitagliptin Phosphate (Januvia) 25 mg PO DAILY [facility] Last Admin: 05/13/17 09:45 Dose: Not Given - Labs Labs: 05/13/17 06:23 05/13/17 06:24 PT 13.2 SECONDS (9.7-12.2) H 05/10/17 05:22 INR 1.2 05/10/17 05:22 APTT 47 SECONDS (21-34) H 05/10/17 05:22 Assessment and Plan (1) Acute exacerbation of CHF (congestive heart failure) Status: Acute (2) Dyspnea Status: Acute (3) Leg edema Status: Acute (4) NSTEMI (non-ST elevated myocardial infarction) Status: Acute (5) AD (Alzheimer's disease) Status: Acute (6) Accelerated hypertension Status: Acute (7) Aortic stenosis, moderate Status: Acute
[2017-05-14] MEDS ORDERED: DiphenhydrAMINE 50 mg/ml Inj IVP STA (01:55)
[2017-05-14 06:54] LABS: BASO % 0.6 % (0.0-2.0); EOS % 0.5 % (0.0-4.0); HEMATOCRIT 28.3 % (34.0-47.0); LYMPH # 0.9 K/uL (1.0-4.3); LYMPH % 13.8 % (20.0-40.0); MEAN CELL VOLUME 79.5 fL (81.0-99.0); MEAN CORPUSCULAR HEMOGLOBIN 24.9 pg (27.0-31.0); MEAN CORPUSCULAR HGB CONC 31.4 g/dL (33.0-37.0); MEAN PLATELET VOLUME 9.2 fL (7.2-11.7); MONO # 0.4 K/uL (0.0-0.8); MONO % 5.8 % (0.0-10.0); NRBC % 0.1 % (0.0-2.0); WHITE BLOOD COUNT 6.7 K/uL (4.8-10.8)
[2017-05-14 06:59] LABS: INR 1.1
[2017-05-14 07:09] LABS: CALCIUM 8.6 mg/dl (8.6-10.4); MAGNESIUM 1.6 mg/dL (1.6-2.3); PHOSPHOROUS 3.7 mg/dL (2.5-4.5); POTASSIUM 4.3 mmol/L (3.6-5.2)
[2017-05-14] MEDS: Insulin Detemir 100 units/ml Vial (Levemir) SC SCH (08:00)
[2017-05-14] MEDS: (Novolog) Insulin Aspart, Recombinant 100 u/ml 10 ml vial SC SCH ×2 (08:00→11:39)
[2017-05-14] MEDS: Multiple Vitamins Tab PO SCH (09:46)
[2017-05-14] MEDS: Pantoprazole 40 mg EC Tab PO SCH (09:47)
[2017-05-14] MEDS: Mupirocin 2% Ointment (NASAL) NAS SCH (09:48)
[2017-05-14] MEDS: Enoxaparin 30 mg Syringe SC SCH (09:50)
[2017-05-14] MEDS: Potassium Chloride 10 mEq ER Tab PO SCH (09:54)
[2017-05-14] MEDS: Magnesium Sulfate 1 gm in D5W 1 GM/100 ML BAG IVPB SCH ×2 (11:29→12:13)
--- NOTE | 2017-05-14 11:50 | CP.PCM.CON ---
History of Present Illness - History of Present Illness History of Present Illness: History obtain from chart and medical staff, pt obtunded unable to provide. 82-year-old female with a history of severe aortic stenosis, ckd 4, baseline creatinine around 2 mg/dl, A. fib, dementia, admitted with heart failure with plan for TAVR. Pt was to go for cardiac cath this am, however developed worsening sob / chf and was transferred to icu. currently on bipap. Her creatinine is stable at baseline, urine output is goo. Past medical history: severe aortic stenosis, chronic renal insufficiency, atrial fibrillation, dementia Soc hx: unable to obtain Family history noncontributory ROS: unable to obtain Review of Systems - Review of Systems Systems not reviewed;Unavailable: Respiratory Distress Past Patient History - Infectious Disease Hx of Infectious Diseases: None - Past Medical History & Family History Past Medical History?: Yes - Past Social History Smoking Status: Never Smoked - CARDIAC Hx Atrial Fibrillation: Yes Hx Congestive Heart Failure: Yes Hx Heart Murmur: Yes Hx Hypertension: Yes - NEUROLOGICAL Hx Alzheimer's Disease: Yes Hx Dementia: Yes Hx Transient Ischemic Attacks (TIA): Yes - HEENT Hx HEENT Problems: Yes Hx Cataracts: Yes (right surgery 3yrs ago) - RENAL Hx Chronic Kidney Disease: No - ENDOCRINE/METABOLIC Hx Endocrine Disorders: Yes Hx Diabetes Mellitus Type 2: Yes - HEMATOLOGICAL/ONCOLOGICAL Hx Blood Disorders: No - INTEGUMENTARY Hx Dermatological Problems: No - MUSCULOSKELETAL/RHEUMATOLOGICAL Hx Falls: Yes - GASTROINTESTINAL Hx Gastrointestinal Disorders: No - GENITOURINARY/GYNECOLOGICAL Hx Genitourinary Disorders: Yes Hx Incontinence: Yes - PSYCHIATRIC Hx Substance Use: No - SURGICAL HISTORY Hx Coronary Stent: Yes - ANESTHESIA Hx Anesthesia: Yes Hx Anesthesia Reactions: No Hx Malignant Hyperthermia: No Meds Allergies/Adverse Reactions: Allergies Allergy/AdvReac Type Severity Reaction Status Date / Time latex Allergy ITCHING Verified 05/10/17 18:25 shrimp Allergy ITCHING Verified 05/10/17 18:25 shellfish Allergy ITCHING Uncoded 05/10/17 18:25 - Medications Medications: Current Medications Acetaminophen (Tylenol 325mg Tab) 325 mg PO Q4 PRN PRN Reason: Fever >100.4 F Aspirin (Aspirin Chewable) 81 mg PO DAILY [facility] Last Admin: 05/14/17 09:55 Dose: 81 mg Enoxaparin Sodium (Lovenox) 30 mg SC DAILY [facility] Last Admin: 05/14/17 09:50 Dose: Not Given Furosemide (Lasix) 40 mg IVP Q12H [facility] Gabapentin (Neurontin) 100 mg PO DAILY [facility] Last Admin: 05/14/17 09:47 Dose: 100 mg Hydralazine HCl (Apresoline) 50 mg PO Q8 [facility] Last Admin: 05/14/17 06:56 Dose: 50 mg Magnesium Sulfate/Dextrose (Magnesium Sulfate 1 Gm/100 Ml D5w) 1 gm in 100 mls @ 100 mls/hr IVPB Q1H [facility] Stop: 05/14/17 13:14 Last Admin: 05/14/17 11:29 Dose: 100 mls/hr Insulin Aspart (Novolog) 0 unit SC ACHS [facility] PRN Reason: Protocol Last Admin: 05/14/17 11:39 Dose: Not Given Insulin Detemir (Levemir) 5 unit SC ACB [facility] Last Admin: 05/14/17 08:00 Dose: 5 unit Metoprolol Tartrate (Lopressor) 50 mg PO Q12 [facility] Last Admin: 05/14/17 09:47 Dose: 50 mg Multivitamins (Hexavitamin) 1 tab PO DAILY [facility] Last Admin: 05/14/17 09:46 Dose: 1 tab Mupirocin (Bactroban 2% Nasal) 0.5 gm RENAN BID [facility] Last Admin: 05/14/17 09:48 Dose: 0.5 gm Pantoprazole Sodium (Protonix Ec Tab) 40 mg PO DAILY [facility] Last Admin: 05/14/17 09:47 Dose: 40 mg Potassium Chloride (Klor-Con 10) 10 meq PO DAILY [facility] Last Admin: 05/14/17 09:54 Dose: 10 meq Prochlorperazine (Compazine Rectal Supp) 25 mg RC Q12 PRN PRN Reason: Constipation Rosuvastatin Calcium (Crestor) 10 mg PO HS [facility] Last Admin: 05/13/17 21:43 Dose: 10 mg Sitagliptin Phosphate (Januvia) 25 mg PO DAILY [facility] Last Admin: 05/14/17 09:49 Dose: Not Given Physical Exam - Constitutional Appears: Non-toxic, No Acute Distress - Head Exam Head Exam: NORMAL INSPECTION - Eye Exam Eye Exam: Normal appearance - ENT Exam Additional comments: bipap mask - Neck Exam Neck exam: Positive for: Normal Inspection - Respiratory Exam Respiratory Exam: Decreased Breath Sounds, Rales - Cardiovascular Exam Cardiovascular Exam: Tachycardia, Irregular Rhythm - GI/Abdominal Exam GI & Abdominal Exam: Distended, Soft - Extremities Exam Extremities exam: Positive for: pedal edema - Neurological Exam Neurological exam: Altered - Skin Skin Exam: Dry, Warm Results - Vital Signs Recent Vital Signs: Last Vital Signs Temp 98.7 F 05/14/17 04:00 Pulse 124 H 05/14/17 09:19 Resp 20 05/14/17 07:00 BP 159/81 H 05/14/17 09:47 Pulse Ox 100 05/14/17 07:00 - Labs Result Diagrams: 05/14/17 06:46 05/14/17 06:46 Labs: Laboratory Results - last 24 hr 05/13/17 05/13/17 05/13/17 11:44 16:36 21:18 WBC RBC Hgb Hct MCV MCH MCHC RDW Plt Count MPV Neut % (Auto) Lymph % (Auto) [place] % (Auto) Eos % (Auto) Baso % (Auto) Neut # Lymph # [place] # Eos # Baso # PT INR APTT Sodium Potassium Chloride Carbon Dioxide Anion Gap BUN Creatinine Est GFR ( Amer) Est GFR (Non-Af Amer) POC Glucose (mg/dL) 197 H 192 H 139 H Random Glucose Calcium Phosphorus Magnesium 05/14/17 05/14/17 05/14/17 06:46 06:46 06:46 WBC 6.7 RBC 3.56 L Hgb 8.9 L Hct 28.3 L MCV 79.5 L MCH 24.9 L MCHC 31.4 L RDW 19.0 H Plt Count 195 MPV 9.2 Neut % (Auto) 79.3 H Lymph % (Auto) 13.8 L [place] % (Auto) 5.8 Eos % (Auto) 0.5 Baso % (Auto) 0.6 Neut # 5.3 Lymph # 0.9 L [place] # 0.4 Eos # 0.0 Baso # 0.0 PT 12.2 INR 1.1 APTT 49 H Sodium 137 Potassium 4.3 Chloride 99 Carbon Dioxide 26 Anion Gap 16 BUN 29 H Creatinine 2.1 H Est GFR ( Amer) 27 Est GFR (Non-Af Amer) 23 POC Glucose (mg/dL) Random Glucose 197 H Calcium 8.6 Phosphorus 3.7 Magnesium 1.6 05/14/17 05/14/17 07:34 11:12 WBC RBC Hgb Hct MCV MCH MCHC RDW Plt Count MPV Neut % (Auto) Lymph % (Auto) [place] % (Auto) Eos % (Auto) Baso % (Auto) Neut # Lymph # [place] # Eos # Baso # PT INR APTT Sodium Potassium Chloride Carbon Dioxide Anion Gap BUN Creatinine Est GFR ( Amer) Est GFR (Non-Af Amer) POC Glucose (mg/dL) 246 H 119 H Random Glucose Calcium Phosphorus Magnesium Assessment & Plan (1) Acute exacerbation of CHF (congestive heart failure) Status: Acute (2) Dyspnea Status: Acute (3) Leg edema Status: Acute (4) NSTEMI (non-ST elevated myocardial infarction) Status: Acute (5) AD (Alzheimer's disease) Status: Acute (6) Accelerated hypertension Status: Acute - Assessment and Plan (Free Text) Assessment: # ckd 4, dm nephropathy # critical # congestive heart failure/ pulmonary edema / respiratory failure # hypertension # dementia # dm plan: maintain iv lasix pugh to be placed, strict I/Os urine culture ordered consider changing to heparin sq instead of lovenox check iron stores
[2017-05-14] MEDS ORDERED: Heparin25000 units/250ml 1/2NS 25,000 UNITS/250 ML BAG IV PRN (13:00)
--- NOTE | 2017-05-14 15:07 | RAD ---
HISTORY: WHEEZING COMPARISON: Chest radiograph dated 05/11/2017. FINDINGS: LUNGS: Stable pulmonary vascular congestion with prominent patchy airspace opacities. PLEURA: No significant pleural effusion identified, no pneumothorax apparent. CARDIOVASCULAR: Atherosclerotic aortic calcifications. Stable cardiomediastinal silhouette. OSSEOUS STRUCTURES: No significant abnormalities. VISUALIZED UPPER ABDOMEN: Normal. OTHER FINDINGS: None. IMPRESSION: Stable pulmonary vascular congestion with prominent patchy airspace opacities. No significant interval change.
[2017-05-14 16:24] VITALS: BP 238/152; PULSE 152; RESP 15
--- NOTE | 2017-05-14 16:29 | CP.PCM.PRO ---
Pronouncement of Note - Clinical Findings Physical Exam: No Response Verbal/Painful Stimuli, Absent Peripheral Pulses{ Carotid & Femoral}, Absent Heart & Breath Sounds, Absence of Vital Signs - Pronouncement Time Time of Pronouncement of : 13:52 (code blue) - Notifications Pronouncement Notifications: Family Notified Automation Application Engineer Notified: No - Autopsy Autopsy Requested: No - [place] [id number]
[2017-05-14 16:33] VITALS: TEMP 97.3
--- NOTE | 2017-05-14 17:27 | CP.CCUPN ---
<Jhoan Lee - Last Filed: 05/14/17 17:49> CCU Subjective - Physician Review Subjective (Free Text): PGY1 ICU progress note for Dr. Mccray Patient was down graded from ICU to telemetry yesterday. Patient was scheduled for cardiac cath this morning with Dr. Cordero. Cath was cancelled due to patient' s labored breathing. Dr. Cordero requested an ICU eval and placement of a central line. The central line was requested to start a heparin drip and amiodarone drip for treatment of atrial fibrillation. The daughter was bedside and stated she did not want a subclavian or IJ line, nothing in her neck. Daughter signed consent with the request of a femoral line. CCU Objective - Vital Signs / Intake & Output Vital Signs (Last 4 hours): Vital Signs Pulse Resp BP 05/14/17 14:01 15 05/14/17 13:40 238/152 H 05/14/17 13:37 152 H 05/14/17 13:35 121/72 05/14/17 13:33 132 H 05/14/17 13:31 125 H 93 H 112/42 L Intake and Output (Last 8hrs): Intake & Output 05/14/17 05/14/17 05/14/17 06:59 14:59 22:59 Intake Total 30 Output Total 350 Balance -320 Weight 179 lb 2.6 oz Intake: Oral 30 Output: Urine 350 Urine, Voided 350 Other: # Bowel Movements 0 - Physical Exam Respiratory/Chest: Positive for: Other (on BiPAP) Cardiovascular: Positive for: Irregular Rhythm (afib) Upper Extremity: Positive for: Normal Inspection Lower Extremity: Positive for: Normal Inspection Neurological: Positive for: Other (hx of advanced dementia) Skin: Positive for: Warm, Dry Psychiatric: Positive for: Alert - Medications Active Medications: Active Medications Generic Name Dose Route Start Last Admin Trade Name Freq PRN Reason Stop Dose Admin Acetaminophen 325 mg 05/10/17 06:59 Tylenol 325mg Tab PO Q4 PRN Fever >100.4 F Aspirin 81 mg 05/10/17 10:00 05/14/17 09:55 Aspirin Chewable PO 81 mg DAILY MASTER Administration Furosemide 40 mg 05/14/17 18:00 Lasix IVP Q12H MASTER Gabapentin 100 mg 05/10/17 10:00 05/14/17 09:47 Neurontin PO 100 mg DAILY MASTER Administration Hydralazine HCl 50 mg 05/12/17 17:51 05/14/17 06:56 Apresoline PO 50 mg Q8 MASTER Administration Heparin Sodium/Sodium Chloride 25,000 units in 250 mls @ 9.752 mls/hr 13:00 Heparin 14267 Units/250ml 1/2 Normal Saline IV .Q24H PRN PROTOCOL Protocol 12 UNITS/KG/HR Insulin Aspart 0 unit 05/10/17 07:30 05/14/17 11:39 Novolog SC Not Given ACHS MASTER Protocol Insulin Detemir 5 unit 05/10/17 07:30 05/14/17 08:00 Levemir SC 5 unit ACB MASTER Administration Metoprolol Tartrate 50 mg 05/10/17 10:00 05/14/17 09:47 Lopressor PO 50 mg Q12 MASTER Administration Multivitamins 1 tab 05/10/17 10:00 05/14/17 09:46 Hexavitamin PO 1 tab DAILY MASTER Administration Mupirocin 0.5 gm 05/12/17 18:00 05/14/17 09:48 Bactroban 2% Nasal RENAN 0.5 gm BID MASTER Administration Pantoprazole Sodium 40 mg 05/10/17 10:00 05/14/17 09:47 Protonix Ec Tab PO 40 mg DAILY MASTER Administration Potassium Chloride 10 meq 05/13/17 10:00 05/14/17 09:54 Klor-Con 10 PO 10 meq DAILY MASTER Administration Prochlorperazine 25 mg 05/10/17 06:59 Compazine Rectal Supp RC Q12 PRN Constipation Rosuvastatin Calcium 10 mg 05/10/17 22:00 05/13/17 21:43 Crestor PO 10 mg HS MASTER Administration Sitagliptin Phosphate 25 mg 05/10/17 10:00 05/14/17 09:49 Januvia PO Not Given DAILY MASTER - Patient Studies Lab Studies: Microbiology Studies 05/10/17 05:30 Blood Culture - Preliminary Blood NO GROWTH AFTER 4 DAYS 05/10/17 05:00 Blood Culture - Preliminary Blood NO GROWTH AFTER 4 DAYS Lab Studies 05/14/17 05/14/17 05/14/17 Range/Units 15:13 11:12 07:34 WBC (4.8-10.8) K/uL RBC (3.80-5.20) Mil/uL Hgb (11.0-16.0) g/dL Hct (34.0-47.0) % MCV (81.0-99.0) fL MCH (27.0-31.0) pg MCHC (33.0-37.0) g/dL RDW (11.5-14.5) % Plt Count (130-400) K/uL MPV (7.2-11.7) fL Neut % (Auto) (50.0-75.0) % Lymph % (Auto) (20.0-40.0) % [place] % (Auto) (0.0-10.0) % Eos % (Auto) (0.0-4.0) % Baso % (Auto) (0.0-2.0) % Neut # (1.8-7.0) K/uL Lymph # (1.0-4.3) K/uL [place] # (0.0-0.8) K/uL Eos # (0.0-0.7) K/uL Baso # (0.0-0.2) K/uL PT (9.7-12.2) SECONDS INR APTT (21-34) SECONDS Sodium (132-148) mmol/L Potassium (3.6-5.2) mmol/L Chloride (98-107) mmol/L Carbon Dioxide (22-30) mmol/L Anion Gap (10-20) BUN (7-17) mg/dL Creatinine (0.7-1.2) mg/dL Est GFR ( Amer) Est GFR (Non-Af Amer) POC Glucose (mg/dL) 119 H 246 H (65-110) mg/dL Random Glucose (65-105) mg/dL Calcium (8.6-10.4) mg/dl Phosphorus (2.5-4.5) mg/dL Magnesium (1.6-2.3) mg/dL Ur Random Creatinine 54.4 mg/dL U Random Total Protein Cancelled 05/14/17 05/14/17 05/14/17 Range/Units 06:46 06:46 06:46 WBC 6.7 (4.8-10.8) K/uL RBC 3.56 L (3.80-5.20) Mil/uL Hgb 8.9 L (11.0-16.0) g/dL Hct 28.3 L (34.0-47.0) % MCV 79.5 L (81.0-99.0) fL MCH 24.9 L (27.0-31.0) pg MCHC 31.4 L (33.0-37.0) g/dL RDW 19.0 H (11.5-14.5) % Plt Count 195 (130-400) K/uL MPV 9.2 (7.2-11.7) fL Neut % (Auto) 79.3 H (50.0-75.0) % Lymph % (Auto) 13.8 L (20.0-40.0) % [place] % (Auto) 5.8 (0.0-10.0) % Eos % (Auto) 0.5 (0.0-4.0) % Baso % (Auto) 0.6 (0.0-2.0) % Neut # 5.3 (1.8-7.0) K/uL Lymph # 0.9 L (1.0-4.3) K/uL [place] # 0.4 (0.0-0.8) K/uL Eos # 0.0 (0.0-0.7) K/uL Baso # 0.0 (0.0-0.2) K/uL PT 12.2 (9.7-12.2) SECONDS INR 1.1 APTT 49 H (21-34) SECONDS Sodium 137 (132-148) mmol/L Potassium 4.3 (3.6-5.2) mmol/L Chloride 99 (98-107) mmol/L Carbon Dioxide 26 (22-30) mmol/L Anion Gap 16 (10-20) BUN 29 H (7-17) mg/dL Creatinine 2.1 H (0.7-1.2) mg/dL Est GFR ( Amer) 27 Est GFR (Non-Af Amer) 23 POC Glucose (mg/dL) (65-110) mg/dL Random Glucose 197 H (65-105) mg/dL Calcium 8.6 (8.6-10.4) mg/dl Phosphorus 3.7 (2.5-4.5) mg/dL Magnesium 1.6 (1.6-2.3) mg/dL Ur Random Creatinine mg/dL U Random Total Protein 05/13/17 Range/Units 21:18 WBC (4.8-10.8) K/uL RBC (3.80-5.20) Mil/uL Hgb (11.0-16.0) g/dL Hct (34.0-47.0) % MCV (81.0-99.0) fL MCH (27.0-31.0) pg MCHC (33.0-37.0) g/dL RDW (11.5-14.5) % Plt Count (130-400) K/uL MPV (7.2-11.7) fL Neut % (Auto) (50.0-75.0) % Lymph % (Auto) (20.0-40.0) % [place] % (Auto) (0.0-10.0) % Eos % (Auto) (0.0-4.0) % Baso % (Auto) (0.0-2.0) % Neut # (1.8-7.0) K/uL Lymph # (1.0-4.3) K/uL [place] # (0.0-0.8) K/uL Eos # (0.0-0.7) K/uL Baso # (0.0-0.2) K/uL PT (9.7-12.2) SECONDS INR APTT (21-34) SECONDS Sodium (132-148) mmol/L Potassium (3.6-5.2) mmol/L Chloride (98-107) mmol/L Carbon Dioxide (22-30) mmol/L Anion Gap (10-20) BUN (7-17) mg/dL Creatinine (0.7-1.2) mg/dL Est GFR ( Amer) Est GFR (Non-Af Amer) POC Glucose (mg/dL) 139 H (65-110) mg/dL Random Glucose (65-105) mg/dL Calcium (8.6-10.4) mg/dl Phosphorus (2.5-4.5) mg/dL Magnesium (1.6-2.3) mg/dL Ur Random Creatinine mg/dL U Random Total Protein Laboratory Results - last 24 hr 05/13/17 05/14/17 05/14/17 21:18 06:46 06:46 WBC 6.7 RBC 3.56 L Hgb 8.9 L Hct 28.3 L MCV 79.5 L MCH 24.9 L MCHC 31.4 L RDW 19.0 H Plt Count 195 MPV 9.2 Neut % (Auto) 79.3 H Lymph % (Auto) 13.8 L [place] % (Auto) 5.8 Eos % (Auto) 0.5 Baso % (Auto) 0.6 Neut # 5.3 Lymph # 0.9 L [place] # 0.4 Eos # 0.0 Baso # 0.0 PT 12.2 INR 1.1 APTT 49 H Sodium Potassium Chloride Carbon Dioxide Anion Gap BUN Creatinine Est GFR ( Amer) Est GFR (Non-Af Amer) POC Glucose (mg/dL) 139 H Random Glucose Calcium Phosphorus Magnesium Ur Random Creatinine U Random Total Protein 05/14/17 05/14/17 05/14/17 06:46 07:34 11:12 WBC RBC Hgb Hct MCV MCH MCHC RDW Plt Count MPV Neut % (Auto) Lymph % (Auto) [place] % (Auto) Eos % (Auto) Baso % (Auto) Neut # Lymph # [place] # Eos # Baso # PT INR APTT Sodium 137 Potassium 4.3 Chloride 99 Carbon Dioxide 26 Anion Gap 16 BUN 29 H Creatinine 2.1 H Est GFR ( Amer) 27 Est GFR (Non-Af Amer) 23 POC Glucose (mg/dL) 246 H 119 H Random Glucose 197 H Calcium 8.6 Phosphorus 3.7 Magnesium 1.6 Ur Random Creatinine U Random Total Protein 05/14/17 15:13 WBC RBC Hgb Hct MCV MCH MCHC RDW Plt Count MPV Neut % (Auto) Lymph % (Auto) [place] % (Auto) Eos % (Auto) Baso % (Auto) Neut # Lymph # [place] # Eos # Baso # PT INR APTT Sodium Potassium Chloride Carbon Dioxide Anion Gap BUN Creatinine Est GFR ( Amer) Est GFR (Non-Af Amer) POC Glucose (mg/dL) Random Glucose Calcium Phosphorus Magnesium Ur Random Creatinine 54.4 U Random Total Protein Cancelled Fingerstick Blood Sugar Results: 119 Review of Systems - Review of Systems Systems not reviewed;Unavailable: Other (hx of advanced dementia) Critical Care Progress Note - Nutrition Nutrition: Nutrition Category Date Time Status Consistent Carbohydrate [DIET] Diets 05/10/17 Breakfast Active Assessment/Plan - Assessment and Plan (Free Text) Assessment: 82 year old female with with history of aortic stenosis, renal insufficiency, hypertension, CAD, atrial fibrillation presenting with CHF exacerbation Plan: ICU team was re-consulted to place a triple lumen central catheter. Per the daughter's request, a right sided femoral line was placed without complication. Patient stated, "Are you done?" After the ICU team cleaned up and prepared to leave, the patient became tachycardic and non-responsive. The patient's rhythm of atrial fibrillation quickly transition from tachycardia to bradycardia to pulseless electrical activity (PEA). A code blue was quickly called and CPR started. CPR was continued with multiple rounds of epinephrine given before the patient's rhythm switched to Ventricular Fibrillation. Multiple shocks were delivered with continuous CPR inbetween. The patient never regained a pulse and the patient was pronounced at 13:52. The patient's daughter, who was located in the hallway, was informed of the passing of her mother. Case discussed with Dr. Mahendra Lee PGY1 <Mando Mccray - Last Filed: 05/14/17 18:30> CCU Objective - Vital Signs / Intake & Output Intake and Output (Last 8hrs): Intake & Output 05/14/17 05/14/17 05/14/17 06:59 14:59 22:59 Intake Total 30 Output Total 350 Balance -320 Weight 179 lb 2.6 oz Intake: Oral 30 Output: Urine 350 Urine, Voided 350 Other: # Bowel Movements 0 - Medications Active Medications: Active Medications Generic Name Dose Route Start Last Admin Trade Name Freq PRN Reason Stop Dose Admin Acetaminophen 325 mg 05/10/17 06:59 Tylenol 325mg Tab PO Q4 PRN Fever >100.4 F Aspirin 81 mg 05/10/17 10:00 05/14/17 09:55 Aspirin Chewable PO 81 mg DAILY MASTER Administration Furosemide 40 mg 05/14/17 18:00 Lasix IVP Q12H MASTER Gabapentin 100 mg 05/10/17 10:00 05/14/17 09:47 Neurontin PO 100 mg DAILY MASTER Administration Hydralazine HCl 50 mg 05/12/17 17:51 05/14/17 06:56 Apresoline PO 50 mg Q8 MASTER Administration Heparin Sodium/Sodium Chloride 25,000 units in 250 mls @ 9.752 mls/hr 13:00 Heparin 02953 Units/250ml 1/2 Normal Saline IV .Q24H PRN PROTOCOL Protocol 12 UNITS/KG/HR Insulin Aspart 0 unit 05/10/17 07:30 05/14/17 11:39 Novolog SC Not Given ACHS MASTER Protocol Insulin Detemir 5 unit 05/10/17 07:30 05/14/17 08:00 Levemir SC 5 unit ACB MASTER Administration Metoprolol Tartrate 50 mg 05/10/17 10:00 05/14/17 09:47 Lopressor PO 50 mg Q12 MASTER Administration Multivitamins 1 tab 05/10/17 10:00 05/14/17 09:46 Hexavitamin PO 1 tab DAILY MASTER Administration Mupirocin 0.5 gm 05/12/17 18:00 05/14/17 09:48 Bactroban 2% Nasal RENAN 0.5 gm BID MASTER Administration Pantoprazole Sodium 40 mg 05/10/17 10:00 05/14/17 09:47 Protonix Ec Tab PO 40 mg DAILY MASTER Administration Potassium Chloride 10 meq 05/13/17 10:00 05/14/17 09:54 Klor-Con 10 PO 10 meq DAILY MASTER Administration Prochlorperazine 25 mg 05/10/17 06:59 Compazine Rectal Supp RC Q12 PRN Constipation Rosuvastatin Calcium 10 mg 05/10/17 22:00 05/13/17 21:43 Crestor PO 10 mg HS MASTER Administration Sitagliptin Phosphate 25 mg 05/10/17 10:00 05/14/17 09:49 Januvia PO Not Given DAILY MASTER - Patient Studies Lab Studies: Microbiology Studies 05/10/17 05:30 Blood Culture - Preliminary Blood NO GROWTH AFTER 4 DAYS 05/10/17 05:00 Blood Culture - Preliminary Blood NO GROWTH AFTER 4 DAYS Lab Studies 05/14/17 05/14/17 05/14/17 Range/Units 15:13 15:00 11:12 WBC (4.8-10.8) K/uL RBC (3.80-5.20) Mil/uL Hgb (11.0-16.0) g/dL Hct (34.0-47.0) % MCV (81.0-99.0) fL MCH (27.0-31.0) pg MCHC (33.0-37.0) g/dL RDW (11.5-14.5) % Plt Count (130-400) K/uL MPV (7.2-11.7) fL Neut % (Auto) (50.0-75.0) % Lymph % (Auto) (20.0-40.0) % [place] % (Auto) (0.0-10.0) % Eos % (Auto) (0.0-4.0) % Baso % (Auto) (0.0-2.0) % Neut # (1.8-7.0) K/uL Lymph # (1.0-4.3) K/uL [place] # (0.0-0.8) K/uL Eos # (0.0-0.7) K/uL Baso # (0.0-0.2) K/uL PT (9.7-12.2) SECONDS INR APTT (21-34) SECONDS Sodium (132-148) mmol/L Potassium (3.6-5.2) mmol/L Chloride (98-107) mmol/L Carbon Dioxide (22-30) mmol/L Anion Gap (10-20) BUN (7-17) mg/dL Creatinine (0.7-1.2) mg/dL Est GFR ( Amer) Est GFR (Non-Af Amer) POC Glucose (mg/dL) 119 H (65-110) mg/dL Random Glucose (65-105) mg/dL Calcium (8.6-10.4) mg/dl Phosphorus (2.5-4.5) mg/dL Magnesium (1.6-2.3) mg/dL Ur Random Creatinine 54.4 mg/dL U Random Total Protein Cancelled 402.0 H (0.0-12.0) mg/dL 05/14/17 05/14/17 05/14/17 Range/Units 07:34 06:46 06:46 WBC (4.8-10.8) K/uL RBC (3.80-5.20) Mil/uL Hgb (11.0-16.0) g/dL Hct (34.0-47.0) % MCV (81.0-99.0) fL MCH (27.0-31.0) pg MCHC (33.0-37.0) g/dL RDW (11.5-14.5) % Plt Count (130-400) K/uL MPV (7.2-11.7) fL Neut % (Auto) (50.0-75.0) % Lymph % (Auto) (20.0-40.0) % [place] % (Auto) (0.0-10.0) % Eos % (Auto) (0.0-4.0) % Baso % (Auto) (0.0-2.0) % Neut # (1.8-7.0) K/uL Lymph # (1.0-4.3) K/uL [place] # (0.0-0.8) K/uL Eos # (0.0-0.7) K/uL Baso # (0.0-0.2) K/uL PT 12.2 (9.7-12.2) SECONDS INR 1.1 APTT 49 H (21-34) SECONDS Sodium 137 (132-148) mmol/L Potassium 4.3 (3.6-5.2) mmol/L Chloride 99 (98-107) mmol/L Carbon Dioxide 26 (22-30) mmol/L Anion Gap 16 (10-20) BUN 29 H (7-17) mg/dL Creatinine 2.1 H (0.7-1.2) mg/dL Est GFR ( Amer) 27 Est GFR (Non-Af Amer) 23 POC Glucose (mg/dL) 246 H (65-110) mg/dL Random Glucose 197 H (65-105) mg/dL Calcium 8.6 (8.6-10.4) mg/dl Phosphorus 3.7 (2.5-4.5) mg/dL Magnesium 1.6 (1.6-2.3) mg/dL Ur Random Creatinine mg/dL U Random Total Protein (0.0-12.0) mg/dL 05/14/17 05/13/17 Range/Units 06:46 21:18 WBC 6.7 (4.8-10.8) K/uL RBC 3.56 L (3.80-5.20) Mil/uL Hgb 8.9 L (11.0-16.0) g/dL Hct 28.3 L (34.0-47.0) % MCV 79.5 L (81.0-99.0) fL MCH 24.9 L (27.0-31.0) pg MCHC 31.4 L (33.0-37.0) g/dL RDW 19.0 H (11.5-14.5) % Plt Count 195 (130-400) K/uL MPV 9.2 (7.2-11.7) fL Neut % (Auto) 79.3 H (50.0-75.0) % Lymph % (Auto) 13.8 L (20.0-40.0) % [place] % (Auto) 5.8 (0.0-10.0) % Eos % (Auto) 0.5 (0.0-4.0) % Baso % (Auto) 0.6 (0.0-2.0) % Neut # 5.3 (1.8-7.0) K/uL Lymph # 0.9 L (1.0-4.3) K/uL [place] # 0.4 (0.0-0.8) K/uL Eos # 0.0 (0.0-0.7) K/uL Baso # 0.0 (0.0-0.2) K/uL PT (9.7-12.2) SECONDS INR APTT (21-34) SECONDS Sodium (132-148) mmol/L Potassium (3.6-5.2) mmol/L Chloride (98-107) mmol/L Carbon Dioxide (22-30) mmol/L Anion Gap (10-20) BUN (7-17) mg/dL Creatinine (0.7-1.2) mg/dL Est GFR ( Amer) Est GFR (Non-Af Amer) POC Glucose (mg/dL) 139 H (65-110) mg/dL Random Glucose (65-105) mg/dL Calcium (8.6-10.4) mg/dl Phosphorus (2.5-4.5) mg/dL Magnesium (1.6-2.3) mg/dL Ur Random Creatinine mg/dL U Random Total Protein (0.0-12.0) mg/dL Laboratory Results - last 24 hr 05/13/17 05/14/17 05/14/17 21:18 06:46 06:46 WBC 6.7 RBC 3.56 L Hgb 8.9 L Hct 28.3 L MCV 79.5 L MCH 24.9 L MCHC 31.4 L RDW 19.0 H Plt Count 195 MPV 9.2 Neut % (Auto) 79.3 H Lymph % (Auto) 13.8 L [place] % (Auto) 5.8 Eos % (Auto) 0.5 Baso % (Auto) 0.6 Neut # 5.3 Lymph # 0.9 L [place] # 0.4 Eos # 0.0 Baso # 0.0 PT 12.2 INR 1.1 APTT 49 H Sodium Potassium Chloride Carbon Dioxide Anion Gap BUN Creatinine Est GFR ( Amer) Est GFR (Non-Af Amer) POC Glucose (mg/dL) 139 H Random Glucose Calcium Phosphorus Magnesium Ur Random Creatinine U Random Total Protein 05/14/17 05/14/17 05/14/17 06:46 07:34 11:12 WBC RBC Hgb Hct MCV MCH MCHC RDW Plt Count MPV Neut % (Auto) Lymph % (Auto) [place] % (Auto) Eos % (Auto) Baso % (Auto) Neut # Lymph # [place] # Eos # Baso # PT INR APTT Sodium 137 Potassium 4.3 Chloride 99 Carbon Dioxide 26 Anion Gap 16 BUN 29 H Creatinine 2.1 H Est GFR ( Amer) 27 Est GFR (Non-Af Amer) 23 POC Glucose (mg/dL) 246 H 119 H Random Glucose 197 H Calcium 8.6 Phosphorus 3.7 Magnesium 1.6 Ur Random Creatinine U Random Total Protein 05/14/17 05/14/17 15:00 15:13 WBC RBC Hgb Hct MCV MCH MCHC RDW Plt Count MPV Neut % (Auto) Lymph % (Auto) [place] % (Auto) Eos % (Auto) Baso % (Auto) Neut # Lymph # [place] # Eos # Baso # PT INR APTT Sodium Potassium Chloride Carbon Dioxide Anion Gap BUN Creatinine Est GFR ( Amer) Est GFR (Non-Af Amer) POC Glucose (mg/dL) Random Glucose Calcium Phosphorus Magnesium Ur Random Creatinine 54.4 U Random Total Protein 402.0 H Cancelled Critical Care Progress Note - Nutrition Nutrition: Nutrition Category Date Time Status Consistent Carbohydrate [DIET] Diets 05/10/17 Breakfast Active Assessment/Plan (1) Acute exacerbation of CHF (congestive heart failure) Current Visit: Yes Status: Acute Comment: Congestive heart failure secondary to aortic stenosis IV Lasix For cardiac cath BiPAP as needed (2) Aortic stenosis Current Visit: No Status: Chronic Attending/Attestation - Attestation I have personally seen and examined this patient.: Yes I have fully participated in the care of the patient.: Yes I have reviewed all pertinent clinical information: Yes Notes (Text): 05/14/17 18:27 82-year-old female was initially admitted to intensive care unit for CHF secondary to severe aortic stenosis. Patient was seen by cardiology this morning and requested to start Cardizem and heparin drip for A. fib. Patient was placed on BiPAP last night for shortness of breath. Daughter requested triple lumen to be placed in the femoral vein. Postprocedure patient became unresponsive/bradycardic/PEA. Patient immediately intubated and CPR started. Full ACLS protocol followed without any response.
--- NOTE | 2017-05-14 18:57 | PCM.PROC ---
Procedures Attestation:: I certify that I have explained the specified Operation(s) or Procedure(s), risks, benefits and reasonable alternatives to the Patient and/or other person responsible. The opportunity was given to ask questions and all questions answered - Central Line Placement Right Triple Lumen Catheter Aseptic technique was employed throughout the procedure: Hand Hygiene done prior to procedure, Full sterile barriers (mask, hair cover, sterile gown, sterile gloves), Full body sterile drape, Chloraprep Antiseptic: 2 minute prep for Femoral CVP Time Out Performed: Yes Pt. Placed on Pulse Ox Monitor: Yes Central Line Prep: Chlorhexidine-Alcohol Combination Local Anesthesia Used: Lidocaine 1% Amount of Anesthesia Used (mls): 3 Ultrasound Used for Placement: No Central Line Lumen Inserted: triple Central Line Length: 20 cm Post Procedure: Sutured in Place, Good Blood Return, All Ports Aspirated, Flushed, Capped, Sterile Dressing Applied Secured by: Suture Post procedure dressing: Chlorhexidine disc (Biopatch) Post Procedure X-Ray: No Patient Tolerated Procedure: Well
--- NOTE | 2017-05-14 23:21 | CP.PCM.DIS ---
Provider - Provider Date of Admission: 05/10/17 05:52 Attending physician: Ubaldo Cooper MD Diagnosis - Discharge Diagnosis (1) Acute exacerbation of CHF (congestive heart failure) Status: Acute (2) Dyspnea Status: Acute (3) Leg edema Status: Acute (4) NSTEMI (non-ST elevated myocardial infarction) Status: Acute (5) AD (Alzheimer's disease) Status: Acute (6) Accelerated hypertension Status: Acute (7) Aortic stenosis, moderate Status: Acute Hospital Course - Lab Results Lab Results: Micro Results 05/10/17 05:30 Blood Blood Culture - Preliminary NO GROWTH AFTER 4 DAYS 05/10/17 05:00 Blood Blood Culture - Preliminary NO GROWTH AFTER 4 DAYS 05/10/17 11:00 Nose MRSA Culture (Admit) - Final Most Recent Lab Values WBC 6.7 K/uL (4.8-10.8) 05/14/17 06:46 RBC 3.56 Mil/uL (3.80-5.20) L 05/14/17 06:46 Hgb 8.9 g/dL (11.0-16.0) L 05/14/17 06:46 Hct 28.3 % (34.0-47.0) L 05/14/17 06:46 MCV 79.5 fL (81.0-99.0) L 05/14/17 06:46 MCH 24.9 pg (27.0-31.0) L 05/14/17 06:46 MCHC 31.4 g/dL (33.0-37.0) L 05/14/17 06:46 RDW 19.0 % (11.5-14.5) H 05/14/17 06:46 Plt Count 195 K/uL (130-400) 05/14/17 06:46 MPV 9.2 fL (7.2-11.7) 05/14/17 06:46 Neut % (Auto) 79.3 % (50.0-75.0) H 05/14/17 06:46 Lymph % (Auto) 13.8 % (20.0-40.0) L 05/14/17 06:46 Taylor % (Auto) 5.8 % (0.0-10.0) 05/14/17 06:46 Eos % (Auto) 0.5 % (0.0-4.0) 05/14/17 06:46 Baso % (Auto) 0.6 % (0.0-2.0) 05/14/17 06:46 Neut # 5.3 K/uL (1.8-7.0) 05/14/17 06:46 Lymph # 0.9 K/uL (1.0-4.3) L 05/14/17 06:46 Taylor # 0.4 K/uL (0.0-0.8) 05/14/17 06:46 Eos # 0.0 K/uL (0.0-0.7) 05/14/17 06:46 Baso # 0.0 K/uL (0.0-0.2) 05/14/17 06:46 PT 12.2 SECONDS (9.7-12.2) 05/14/17 06:46 INR 1.1 05/14/17 06:46 APTT 49 SECONDS (21-34) H 05/14/17 06:46 Puncture Site R/rad 05/11/17 11:00 pCO2 61 mm/Hg (35-45) H 05/11/17 11:00 pO2 210 mm/Hg (80-100) H 05/11/17 11:00 HCO3 26.6 mmol/L (21-28) 05/11/17 11:00 ABG pH 7.30 (7.35-7.45) L 05/11/17 11:00 ABG Total CO2 31.9 mmol/L (22-28) H 05/11/17 11:00 ABG O2 Saturation 99.9 % (95-98) H 05/11/17 11:00 ABG Base Excess 2.0 mmol/L (-2.0-3.0) 05/11/17 11:00 Maurilio Test Pos 05/11/17 11:00 ABG Potassium 4.0 mmol/L (3.6-5.2) 05/11/17 11:00 A-a O2 Difference 213.0 mm/Hg 05/11/17 11:00 Respiratory Index 1.0 05/11/17 11:00 Sodium 139.0 mmol/l (132-148) 05/11/17 11:00 Chloride 108.0 mmol/L (98-107) H 05/11/17 11:00 Glucose 188 mg/dl (65-105) H 05/11/17 11:00 Lactate 0.7 mmol/L (0.7-2.1) 05/11/17 11:00 Mechanical Rate 14 05/11/17 11:00 FiO2 70.0 % 05/11/17 11:00 Inspiratory BiPAP 16 05/11/17 11:00 Expiratory BiPAP 8 05/11/17 11:00 Sodium 137 mmol/L (132-148) 05/14/17 06:46 Potassium 4.3 mmol/L (3.6-5.2) 05/14/17 06:46 Chloride 99 mmol/L (98-107) 05/14/17 06:46 Carbon Dioxide 26 mmol/L (22-30) 05/14/17 06:46 Anion Gap 16 (10-20) 05/14/17 06:46 BUN 29 mg/dL (7-17) H 05/14/17 06:46 Creatinine 2.1 mg/dL (0.7-1.2) H 05/14/17 06:46 Est GFR ( Amer) 27 05/14/17 06:46 Est GFR (Non-Af Amer) 23 05/14/17 06:46 POC Glucose (mg/dL) 119 mg/dL (65-110) H 05/14/17 11:12 Random Glucose 197 mg/dL (65-105) H 05/14/17 06:46 Calcium 8.6 mg/dl (8.6-10.4) 05/14/17 06:46 Phosphorus 3.7 mg/dL (2.5-4.5) 05/14/17 06:46 Magnesium 1.6 mg/dL (1.6-2.3) 05/14/17 06:46 Total Bilirubin 0.7 mg/dL (0.2-1.3) 05/13/17 06:24 AST 37 U/L (14-36) H 05/13/17 06:24 ALT 16 U/L (9-52) 05/13/17 06:24 Alkaline Phosphatase 186 U/L (38-126) H 05/13/17 06:24 Total Creatine Kinase 53 U/L (30-135) 05/11/17 11:30 CK-MB (Mass) 1.22 ng/mL (0.0-3.38) 05/11/17 11:30 Troponin I 0.1180 ng/mL (0.00-0.120) 05/11/17 11:30 Troponin I, Quant 0.1020 ng/mL (0.00-0.120) 05/10/17 18:13 NT-Pro-B Natriuret Pep 15543 pg/mL (0-900) H 05/11/17 11:30 Total Protein 8.5 g/dL (6.3-8.3) H 05/13/17 06:24 Albumin 3.5 g/dL (3.5-5.0) 05/13/17 06:24 Globulin 5.0 gm/dL (2.2-3.9) H 05/13/17 06:24 Albumin/Globulin Ratio 0.7 (1.0-2.1) L 05/13/17 06:24 Arterial Blood Potassium 4.0 mmol/L (3.6-5.2) 05/11/17 11:00 Urine Color Yellow (YELLOW) 05/10/17 07:40 Urine Clarity Clear (Clear) 05/10/17 07:40 Urine pH 6.0 (5.0-8.0) 05/10/17 07:40 Ur Specific Dagmar 1.013 (1.003-1.030) 05/10/17 07:40 Urine Protein 3+ mg/dL (NEGATIVE) H 05/10/17 07:40 Urine Glucose (UA) 3+ mg/dL (Normal) H 05/10/17 07:40 Urine Ketones Negative mg/dL (NEGATIVE) 05/10/17 07:40 Urine Blood Negative (NEGATIVE) 05/10/17 07:40 Urine Nitrate Negative (NEGATIVE) 05/10/17 07:40 Urine Bilirubin Negative (NEGATIVE) 05/10/17 07:40 Urine Urobilinogen Normal mg/dL (0.2-1.0) 05/10/17 07:40 Ur Leukocyte Esterase Trace Valerie/uL (Negative) 05/10/17 07:40 Urine WBC (Auto) 15 /hpf (0-5) H 05/10/17 07:40 Urine RBC (Auto) 4 /hpf (0-3) H 05/10/17 07:40 Ur Squamous Epith Cells 5 /hpf (0-5) 05/10/17 07:40 Urine Bacteria Rare (<OCC) 05/10/17 07:40 Ur Random Creatinine 54.4 mg/dL 05/14/17 15:13 U Random Total Protein Cancelled 05/14/17 15:13 - Hospital Course Hospital Course: 82-year-old female was initially admitted to intensive care unit for CHF secondary to severe aortic stenosis. Patient was seen by cardiology this morning and requested to start Cardizem and heparin drip for A. fib. Patient was placed on BiPAP last night for shortness of breath. Daughter requested triple lumen to be placed in the femoral vein. Postprocedure patient became unresponsive/bradycardic/PEA. Patient immediately intubated and CPR started. Full ACLS protocol followed without any response. Discharge Exam - Head Exam Head Exam: NORMAL INSPECTION - Eye Exam Pupil Exam: Fixed - Cardiovascular Exam Cardiovascular Exam: absent: Bradycardia, Tachycardia, Clicks, Diastolic murmur , Gallop, Irregular Rhythm, REGULAR RHYTHM, JVD, RRR, Rubs, +S1, +S2, +S4, Systolic Murmur - GI/Abdominal Exam GI & Abdominal Exam: absent: Bruit, Diminished Bowel Sounds, Distended, Firm, Guarding, Hernia, Hyperactive Bowel Sounds, Hypoactive Bowel Sounds, Mass, Normal Bowel Sounds, Organomegaly, Pulsatile Mass, Rebound, Rigid, Soft, Tenderness, Unremarkable Discharge Plan - Follow Up Plan Condition: Disposition: WITH WITHOUT AUTOPSY
== END 2017-05-14 22:08 ==
LOC: C.ER 04:45 → C.9I 05:52
PROVIDERS: ADMIT Internal Medicine; ATTEND Internal Medicine
PROC: 5A09457 Assistance with Respiratory Ventilation, 24-96 Consecutive Hours, Continuous Positive Airway Pressure (ICD-10-PCS; principal; 2017-05-11)
PROC: 5A12012 Performance of Cardiac Output, Single, Manual (ICD-10-PCS; 2017-05-14)
PROC: 0BH17EZ Insertion of Endotracheal Airway into Trachea, Via Natural or Artificial Opening (ICD-10-PCS; 2017-05-14)
PROC: 06HM33Z Insertion of Infusion Device into Right Femoral Vein, Percutaneous Approach (ICD-10-PCS; 2017-05-14)
PROC: 5A2204Z Restoration of Cardiac Rhythm, Single (ICD-10-PCS; 2017-05-14)
DX: I21.4 Non-ST elevation (NSTEMI) myocardial infarction (principal); I50.33 Acute on chronic diastolic (congestive) heart failure; J96.90 Respiratory failure, unspecified, unspecified whether with hypoxia or hypercapnia; N18.4 Chronic kidney disease, stage 4 (severe); I13.0 Hypertensive heart and chronic kidney disease with heart failure and stage 1 through stage 4 chronic kidney disease, or unspecified chronic kidney disease; I49.01 Ventricular fibrillation; I35.0 Nonrheumatic aortic (valve) stenosis; I48.91 Unspecified atrial fibrillation; G30.9 Alzheimer's disease, unspecified; F02.80 Dementia in other diseases classified elsewhere, unspecified severity, without behavioral disturbance, psychotic disturbance, mood disturbance, and anxiety; E11.21 Type 2 diabetes mellitus with diabetic nephropathy; E11.22 Type 2 diabetes mellitus with diabetic chronic kidney disease; I25.10 Atherosclerotic heart disease of native coronary artery without angina pectoris; R00.1 Bradycardia, unspecified; L30.9 Dermatitis, unspecified; Z53.09 Procedure and treatment not carried out because of other contraindication; Z95.5 Presence of coronary angioplasty implant and graft; Z86.73 Personal history of transient ischemic attack (TIA), and cerebral infarction without residual deficits; Z79.4 Long term (current) use of insulin; Z98.41 Cataract extraction status, right eye; Z91.040 Latex allergy status